=== PATIENT | male | born 1955 | race Caucasian/White ===

== ENCOUNTER 2019-09-21 06:44 | Outpatient (CLI) | payer BC, MEDICARE, SELFPAY ==
--- NOTE | ~2019-09-21 | CT_ITS ---
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 The dose-length product (DLP) was 681.00 mGy-cm. The mA was adjusted according to patient size. Iterative reconstruction technique was employed. FINDINGS: There is asymmetric thickening of the left tragus and pretragus soft tissues There is no in tracranial hemorrhage, acute infarction, or abnormal mass lesion. The ventricles are normal. There is no abnormal mass effect or midline shift. The langley-white matter differentiation is normal. The basal cisterns are patent. The orbits are normal. The paranasal sinuses, mastoids and calvarium are normal . No abnormal enhancement is identified. IMPRESSION: 1. No acute intracranial abnormality. 2. No enhancing intracranial mass. 3. Asymmetric thickening of the left tragus and pretragus soft tissues which may reflect the known ma ss and/or biopsy change. Reviewed, dictated and finalized at location B. IMPRESSION: 1. No acute intracranial abnormality. 2. No enhancing intracranial mass. 3. Asymmetric thickening of the left tragus and pretragus soft tissues which ma y reflect the known mass and/or biopsy change.
--- NOTE | ~2019-09-21 | CT_ITS ---
EXAMINATION: CT soft tissue neck w con DATE: 09/21/2019 07:33 INDICATION: Left ear squamous cell carcinoma. TECHNIQUE: Computed tomography (CT) of the neck was performed with 100 mL Omnipaque-350 intravenous c ontrast. Automated exposure control and iterative reconstruction technique were employed. The dose-le ngth product was 450.85 mGy-cm. COMPARISON: Head CT 09/21/2019 FINDINGS: There is soft tissue attenuation in the left preauricular fat, consistent with surgical hung nge. There are no pathologically enlarged lymph nodes. There is mild plaque in proximal right interna l carotid artery with 0% stenosis relative to normal distal artery lumen diameter. There is moderate cervical spondylosis. IMPRESSION: 1. Soft tissue attenuation in the left preauricular fat, consistent with surgical change. No evidence of metastatic disease. Reviewed, dictated and finalized at location A. IMPRESSION: 1. Soft tissue attenuation in the left preauricular fat, consistent with surgic al change. No evidence of metastatic disease.
[2019-09-21 07:18] LABS: Estimated Glomerular Filt Rate > 60
== END 2019-09-21 06:45 | disposition home or self-care (01) ==
PROVIDERS: PCP Internal Medicine; Visit Provider Radiology Radiation Oncology
DX: C44.229 Squamous cell carcinoma of skin of left ear and external auricular canal (principal); C44.329 Squamous cell carcinoma of skin of other parts of face; M79.89 Other specified soft tissue disorders
CPT/HCPCS: 36415; 70460; 70491; Q9967

== ENCOUNTER 2019-12-27 06:56 | Outpatient (CLI) | payer BC, MEDICARE, SELFPAY ==
[2019-12-27 07:44] LABS: Basophils Percent Auto 0.3 % (0.2-1.2); Eosinophils Absolute Auto 0.1 K/mm3 (0-0.3); Eosinophils Percent Auto 1.1 % (0-4.4); Hematocrit 41.9 % (42.0-52.0); Hemoglobin 14.1 g/dL (14.0-18.0); Immature Granulocyte Percent A 1.6 % (0-0.5); Lymphocytes Absolute Auto 1.41 K/mm3 (0.9-3.2); Lymphocytes Percent Auto 22.3 % (18.3-44.2); Mean Corpuscular HGB Conc 33.7 g/dl (32-36); Mean Corpuscular Hemoglobin 30.6 pg (26-34); Mean Corpuscular Volume 90.9 fl (80-100); Mean Platelet Volume 9.4 fl (7.4-10.4); Monocytes Absolute Auto 0.6 K/mm3 (0.1-0.6); Neutrophils Absolute Auto 4.2 K/mm3 (1.3-6.7); Neutrophils Percent Auto 65.7 % (45.5-73.1); Platelet Count Result 169 k/mm3 (150-375); Red Blood Count 4.61 M/mm3 (4.6-6.20); Red Cell Distribution Width 13.3 % (11.5-14.5); White Blood Count 6.3 K/mm3 (4.5-10.0)
[2019-12-27 07:54] LABS: Alanine Aminotransferase 21 U/L (4-50); Albumin Level 3.7 g/dL (3.5-5.1); Alkaline Phosphatase 48 U/L (38-126); Anion Gap 5 mmol/L (8-16); Aspartate Amino Transferase 24 U/L (17-59); Bilirubin,Total 1.5 mg/dL (0.2-1.3); Blood Urea Nitrogen 17 mg/dL (9-20); Calcium 8.8 mg/dL (8.4-10.2); Carbon Dioxide 31 mmol/L (22-30); Chloride 103 mmol/L (98-107); Cholesterol 141 mg/dL (0-200); Estimated Glomerular Filt Rate > 60; Glucose 111 mg/dL (75-110); HDL Direct 35 mg/dL; Potassium 4.5 mmol/L (3.4-5.0); Sodium 139 mmol/L (137-145); Triglycerides 143 mg/dL (<150)
[2019-12-27 08:06] LABS: LDL Cholesterol Direct 72 mg/dL
[2019-12-27 08:24] LABS: Prostate Specific Antigen 0.5 ng/mL (< OR = 4.0)
[2019-12-27 08:58] LABS: Folic Acid 8.6 ng/mL (2.76->20)
== END 2019-12-27 06:57 | disposition home or self-care (01) ==
PROVIDERS: PCP Internal Medicine; Visit Provider Internal Medicine
DX: E78.5 Hyperlipidemia, unspecified (principal); R53.83 Other fatigue; I10 Essential (primary) hypertension; Z12.5 Encounter for screening for malignant neoplasm of prostate
CPT/HCPCS: 36415; 80053; 80061; 82607; 82746; 83735; 84153; 84443; 85025; G0103

== ENCOUNTER 2021-01-01 13:06 | Outpatient (CLI) | payer MEDICARE, BC, SELFPAY ==
[2021-01-01 13:32] LABS: Hemoglobin A1C 5.3 % (<5.7)
== END 2021-01-01 13:07 | disposition home or self-care (01) ==
PROVIDERS: PCP Internal Medicine; Visit Provider Internal Medicine
DX: R73.9 Hyperglycemia, unspecified (principal)
CPT/HCPCS: 36415; 83036

== ENCOUNTER 2021-02-06 07:52 | Outpatient (CLI) | payer MEDICARE, BC, SELFPAY ==
[2021-02-06 08:23] LABS: Basophils Percent Auto 0.4 % (0.2-1.2); Eosinophils Absolute Auto 0.1 K/mm3 (0-0.3); Hematocrit 43.6 % (42.0-52.0); Hemoglobin 14.7 g/dL (14.0-18.0); Immature Granulocyte Absolute 0.03 K/mm3 (0.00-0.031); Immature Granulocyte Percent A 0.4 % (0-0.5); Lymphocytes Absolute Auto 2.06 K/mm3 (0.9-3.2); Lymphocytes Percent Auto 29.6 % (18.3-44.2); Mean Corpuscular HGB Conc 33.7 g/dl (32-36); Mean Corpuscular Hemoglobin 31.7 pg (26-34); Mean Corpuscular Volume 94.2 fl (80-100); Monocytes Absolute Auto 0.6 K/mm3 (0.1-0.6); Monocytes Percent Auto 8.9 % (2.6-8.5); Neutrophils Absolute Auto 4.2 K/mm3 (1.3-6.7); Neutrophils Percent Auto 59.7 % (45.5-73.1); Platelet Count Result 187 k/mm3 (150-375); Red Blood Count 4.63 M/mm3 (4.6-6.20); Red Cell Distribution Width 13.9 % (11.5-14.5)
[2021-02-06 08:39] LABS: Alanine Aminotransferase 25 U/L (4-50); Albumin Level 4.3 g/dL (3.5-5.1); Alkaline Phosphatase 50 U/L (38-126); Anion Gap 8 mmol/L (8-16); Aspartate Amino Transferase 28 U/L (17-59); Bilirubin,Total 1.5 mg/dL (0.2-1.3); Blood Urea Nitrogen 22 mg/dL (9-20); Calcium 9.6 mg/dL (8.4-10.2); Carbon Dioxide 32 mmol/L (22-30); Chloride 100 mmol/L (98-107); Cholesterol 189 mg/dL (0-200); Estimated Glomerular Filt Rate > 60; Glucose 107 mg/dL (65-110); HDL Direct 43 mg/dL; Potassium 4.3 mmol/L (3.4-5.0); Sodium 140 mmol/L (137-145); Triglycerides 182 mg/dL (<150)
[2021-02-06 08:50] LABS: LDL Cholesterol Direct 93 mg/dL
[2021-02-06 12:26] LABS: Prostate Specific Antigen 0.6 ng/mL (< OR = 4.0)
[2021-02-09 11:27] LABS: Folic Acid 10.5 ng/mL (2.76->20)
== END 2021-02-06 07:53 | disposition home or self-care (01) ==
PROVIDERS: PCP Internal Medicine; Visit Provider Internal Medicine
DX: Z12.5 Encounter for screening for malignant neoplasm of prostate (principal); E78.5 Hyperlipidemia, unspecified; R53.83 Other fatigue; R73.9 Hyperglycemia, unspecified
CPT/HCPCS: 36415; 80053; 80061; 82607; 82746; 84153; 84443; 85025; G0103

== ENCOUNTER 2021-02-07 08:12 | Outpatient (CLI) | payer MEDICARE, BC, SELFPAY ==
--- NOTE | ~2021-02-07 | XR_ITS ---
EXAMINATION: XR chest 2V DATE: 02/07/2021 08:38 INDICATION: History of hypertension TECHNIQUE: PA and lateral views of the chest are obtained. COMPARISON: 02/26/2015 FINDINGS: There is mild atelectasis of the lung bases. There is no pleural effusion or pneumothorax. The cardiomediastinal silhouette is normal. The visualized bones and soft tissues are unremarkable. IMPRESSION: 1. Mild atelectasis of the lung bases. Reviewed, dictated and finalized at location A. NESS INSPECTOR
== END 2021-02-07 08:13 | disposition home or self-care (01) ==
PROVIDERS: PCP Internal Medicine; Visit Provider Internal Medicine
DX: Z01.811 Encounter for preprocedural respiratory examination (principal); R91.8 Other nonspecific abnormal finding of lung field
CPT/HCPCS: 71046

== ENCOUNTER 2021-09-23 14:34 | Outpatient (CLI) | payer MEDICARE, OTHER, SELFPAY ==
--- NOTE | ~2021-09-23 | XR_ITS ---
EXAMINATION: XR chest 2V 09/23/2021 15:02 INDICATION: Cough and congestion PROCEDURE: 2 view chest COMPARISON: 02/07/2021 FINDINGS: There is lingular atelectasis. No focal pneumonia, edema. The cardiomediastinal silhouette is within normal limits. There are no pleural effusions. There is no pneumothorax suspected. There is moderate gastric distention, nonspecific. IMPRESSION: 1: Lingular atelectasis. Otherwise, no acute cardiopulmonary disease.. Reviewed, dictated and finalized at location A.
== END 2021-09-23 14:35 | disposition home or self-care (01) ==
LOC: ANHIMG 14:53
PROVIDERS: PCP Internal Medicine; Visit Provider Physician Assistant
DX: R05.9 Cough, unspecified (principal); R91.8 Other nonspecific abnormal finding of lung field
CPT/HCPCS: 71046

== ENCOUNTER 2021-11-11 07:27 | Outpatient (CLI) | payer MEDICARE, OTHER, SELFPAY ==
[2021-11-11 08:21] LABS: Basophils Percent Auto 0.5 % (0.2-1.2); Eosinophils Absolute Auto 0.1 K/mm3 (0-0.3); Eosinophils Percent Auto 1.5 % (0-4.4); Hematocrit 44.2 % (42.0-52.0); Hemoglobin 14.6 g/dL (14.0-18.0); Immature Granulocyte Absolute 0.03 K/mm3 (0.00-0.031); Immature Granulocyte Percent A 0.5 % (0-0.5); Lymphocytes Absolute Auto 1.85 K/mm3 (0.9-3.2); Lymphocytes Percent Auto 33.7 % (18.3-44.2); Mean Corpuscular Hemoglobin 30.4 pg (26-34); Mean Corpuscular Volume 91.9 fl (80-100); Mean Platelet Volume 9.5 fl (7.4-10.4); Monocytes Absolute Auto 0.5 K/mm3 (0.1-0.6); Monocytes Percent Auto 8.4 % (2.6-8.5); Neutrophils Percent Auto 55.4 % (45.5-73.1); Platelet Count Result 176 k/mm3 (150-375); Red Blood Count 4.81 M/mm3 (4.6-6.20); Red Cell Distribution Width 14.3 % (11.5-14.5); White Blood Count 5.5 K/mm3 (4.5-10.0)
[2021-11-11 08:25] LABS: Alanine Aminotransferase 23 U/L (6-50); Albumin Level 4.2 g/dL (3.5-5.1); Alkaline Phosphatase 51 U/L (38-126); Anion Gap 9 mmol/L (8-16); Aspartate Amino Transferase 24 U/L (17-59); Bilirubin,Total 1.4 mg/dL (0.2-1.3); Blood Urea Nitrogen 19 mg/dL (9-20); Calcium 8.8 mg/dL (8.4-10.2); Carbon Dioxide 27 mmol/L (22-30); Chloride 104 mmol/L (98-107); Cholesterol 151 mg/dL (0-200); Estimated Glomerular Filt Rate > 60; Glucose 121 mg/dL (65-110); HDL Direct 33 mg/dL; Potassium 4.1 mmol/L (3.4-5.0); Sodium 140 mmol/L (137-145); Triglycerides 146 mg/dL (<150)
[2021-11-11 08:36] LABS: LDL Cholesterol Direct 80 mg/dL
[2021-11-11 09:31] LABS: Folic Acid 7.3 ng/mL (2.76->20); Hemoglobin A1C 5.4 % (<5.7)
== END 2021-11-11 07:28 | disposition home or self-care (01) ==
LOC: ANHLAB 07:29
PROVIDERS: PCP Internal Medicine; Visit Provider Internal Medicine
DX: E78.5 Hyperlipidemia, unspecified (principal); R73.9 Hyperglycemia, unspecified; R53.83 Other fatigue
CPT/HCPCS: 36415; 80053; 80061; 82607; 82746; 83036; 84443; 85025

== ENCOUNTER 2021-12-02 01:40 | Day surgery (SDC) | payer MEDICARE, OTHER, SELFPAY ==
[2021-11-21 09:27] VITALS: BMI 29.7
[2021-12-02 06:50] VITALS: BP 128/74; PULSE 65; RESP 16; TEMP 36.1; O2SAT 98; BMI 28.8
[2021-12-02] MEDS: LACTATED RINGERS 1,000 ML 150 ML IV CONT (07:04)
--- NOTE | 2021-12-02 07:35 | P.HP_ITS ---
History of Present Illness History of Present Illness Consent: Risks, benefits, and alternatives have been discussed and questions answered. Patient agrees to proceed with procedure. Chief complaint: family hx colon polyps Narrative: Margarito Wei is a 65 year old male Presents for screening colonoscopy. Patient's family history is significant his mother had colon polyps. Patient has had a previous colonoscopy 5 years ago that was unremarkable. Patient's current weight appetite bowel movements are normal. He denies abdominal pain. He has had no bleeding. Family history is significant mother had colon polyps. There are no other family member see is aware of who have had colon polyps. Review of Systems Review of Systems: Review of systems noncontributory. ON LICENSE OF [facility] Past Medical History Medical History Ganglion cyst of dorsum of right wrist History of Mohs micrographic surgery for skin cancer Surgical History Surgical History History of back surgery Family History Family History Mother Family history of heart disease in male family member before age 55 Patient's mother is Father Patient's father is Acute myocardial infarction Social History Social History Smoking status: Never smoker Second hand tobacco smoke exposure: No Alcohol intake: current Alcohol use details: once a week Substance use: never Substance use type: does not use Living arrangements: with family Spiritual care concerns: No Meds Home Medications and Allergies Home Medications Medication Instructions Recorded Confirmed Type flecainide 50 mg tablet 50 mg PO Q12H 04/05/19 12/02/21 History metoprolol tartrate 50 mg tablet 50 mg PO DAILY 04/05/19 12/02/21 History rivaroxaban 20 mg tablet (Xarelto) 20 mg PO DAILY 04/05/19 12/02/21 History rosuvastatin 20 mg tablet 20 mg PO DAILY 04/05/19 12/02/21 History olmesartan 20 1 tablet PO DAILY #90 tabs 07/27/21 12/02/21 Rx mg-hydrochlorothiazide 12.5 mg tablet Allergies Allergy/AdvReac Type Severity Reaction Status Date / Time clarithromycin Allergy Intermediate rash/hives Verified 12/02/21 06:49 Vital Signs Vital Signs - 24 hr 12/02/21 06:50 Temperature 97 F L Pulse Rate 65 Respiratory Rate 16 Blood Pressure 128/74 Pulse Oximetry 98 Oxygen Delivery Room Air Exam Narrative: Physical exam reveals patient to be alert. Vital signs stable. HEENT exam is unremarkable. Patient is anicteric. Lungs are clear to auscultation and percussion. Heart is without murmur or extra sounds. Abdomen bowel sounds are present soft nontender with no organomegaly. Digital external rectal exam is normal. Assessment and Plan Assessment and plan (1) Family history of colonic polyps: Code(s): Z83.71 - Family history of colonic polyps Status: Acute Assessment and Plan: Patient's mother had colon polyps. Plan is for surveillance colonoscopy at intervals. Further recommendations will be given after endoscopy.
--- NOTE | 2021-12-02 08:01 | WPDANESEPPF ---
Anes - Initial Pre Proc Eval Procedure: Operation Date: 12/02/21 08:00 Proposed Procedures p Screening Colonoscopy - Sadiq Owens MD Date/Time: 12/02/21 08:01 Surgeon: Sadiq Owens MD Pre Op Diagnosis: family hx colon polyps Patient Data Age: 65 Gender: M Height: 1.8 m Weight: 93.8 kg Last Vital Signs Temp 97 F L 12/02/21 06:50 Pulse 65 12/02/21 06:50 Resp 16 12/02/21 06:50 BP 128/74 12/02/21 06:50 Pulse Ox 98 12/02/21 06:50 O2 Del Method Room Air 12/02/21 06:50 Allergies Allergy/AdvReac Type Severity Reaction Status Date / Time clarithromycin Allergy Intermediate rash/hives Verified 12/02/21 06:49 Home Medications Medication Instructions Recorded Confirmed Type flecainide 50 mg tablet 50 mg PO Q12H 04/05/19 12/02/21 History metoprolol tartrate 50 mg tablet 50 mg PO DAILY 04/05/19 12/02/21 History rivaroxaban 20 mg tablet (Xarelto) 20 mg PO DAILY 04/05/19 12/02/21 History rosuvastatin 20 mg tablet 20 mg PO DAILY 04/05/19 12/02/21 History olmesartan 20 1 tablet PO DAILY #90 tabs 07/27/21 12/02/21 Rx mg-hydrochlorothiazide 12.5 mg tablet Patient hx anesthesia problems: none Family hx anesthesia problems: none Results Review: All pre-operative results and documents have been reviewed as part of the pre-operative evaluation. [facility] Past Medical History Medical History Ganglion cyst of dorsum of right wrist History of Mohs micrographic surgery for skin cancer Surgical History Surgical History History of back surgery Family History Family History Mother Family history of heart disease in male family member before age 55 Patient's mother is Father Patient's father is Acute myocardial infarction Social History Social History Smoking status: Never smoker Second hand tobacco smoke exposure: No Alcohol intake: current Alcohol use details: once a week Substance use: never Substance use type: does not use Living arrangements: with family Spiritual care concerns: No Anes - Eval Final PreProcedure Day of Procedure 12/02/21 08:01 Patient weight: normal Heart: regular rate and rhythm Lungs: clear to auscultation Airway: Mallampati scale class II Neurological: alert and oriented Last oral intake: >/= 8 hours ASA classification: III Emergent: no Anesthetic plan: proceed Anesthesia type and monitoring: general GIVS and standard monitoring Results Review: All pre-operative results and documents have been reviewed as part of the pre-operative evaluation. Informed Consent: The patient's anesthetic plan and its attendant risks and benefits were discussed with the patient/family/POA. Questions were solicited and answers provided to the satisfaction of the patient/family/POA.
[2021-12-02 08:28] VITALS: BP 144/78; PULSE 59; RESP 15; O2SAT 99
--- NOTE | 2021-12-02 08:28 | SUR.OPER ---
DR CONTRERAS AWARE TRANSVERSE COLON POLYP NOT RETRIEVED
[2021-12-02 08:38] VITALS: BP 138/77; PULSE 58; RESP 15; O2SAT 97
[2021-12-02 08:48] VITALS: BP 138/77; PULSE 23; RESP 20; O2SAT 98
== END 2021-12-02 09:01 | disposition home or self-care (01) ==
PROVIDERS: PCP Internal Medicine; Visit Provider Internal Medicine Gastroenterology
PROC: 0DJD8ZZ Inspection of Lower Intestinal Tract, Via Natural or Artificial Opening Endoscopic (ICD-10-PCS; CPT 45378; principal; 2021-12-02 08:00)
DX: Z12.11 Encounter for screening for malignant neoplasm of colon (principal); K63.5 Polyp of colon; Z83.71 Family history of colonic polyps; K57.30 Diverticulosis of large intestine without perforation or abscess without bleeding; K64.8 Other hemorrhoids; Z79.01 Long term (current) use of anticoagulants
CPT/HCPCS: 45385; J2704; J7120

== ENCOUNTER 2022-02-10 12:07 | Outpatient (CLI) | payer MEDICARE, OTHER, SELFPAY ==
--- NOTE | ~2022-02-10 | CT_ITS ---
Noncontrast CT scan of the lumbar spine CLINICAL HISTORY: Back pain radiating to right leg, history spinal fusion TECHNIQUE: Axial noncontrast imaging of the lumbar spine was performed. Sagittal and coronal reformat latoya images were constructed. Dose reduction technique was used on this scan by utilizing automated ex posure control and iterative reconstruction technique. FINDINGS: No acute fracture or subluxation identified. Posterior fusion from L4 to L5 present, bilate ral rods and transpedicular screws present. There is associated disc fusion device at the L4-L5 disc space and L4 laminectomy. Remaining disc spaces are preserved. At L1-L2 and L2-L3, there is no disc bulge or herniation. There is mild facet arthropathy at L2-L3. N o spinal canal stenosis or neural foraminal narrowing at these levels. At L3-L4, there is minimal disc bulge and mild facet joint arthropathy. Probable mild central canal s tenosis. Bilateral neural foramina are preserved. At L4-L5, spinal canal is partially obscured by streak artifact. Probable mild left neural foraminal narrowing. At L5-S1, there is no disc bulge or herniation. No spinal canal stenosis or neural foraminal narrowin g. Paravertebral soft tissues are unremarkable aside from expected postoperative changes. Right adrenal nodule present, stable since prior exam dated 09/01/2016. IMPRESSION: Posterior fusion from L4 to L5, as detailed above. Probable mild multifactorial central canal stenosis at L3-L4. Probable left neural foraminal narrowing at L4-L5. Reviewed, dictated and finalized at [facility]. R DOWN
== END 2022-02-10 12:08 | disposition home or self-care (01) ==
LOC: ANHIMG 12:09
PROVIDERS: PCP Internal Medicine; Visit Provider Internal Medicine
DX: M79.604 Pain in right leg (principal); M54.50 Low back pain, unspecified; Z98.1 Arthrodesis status
CPT/HCPCS: 72131

== ENCOUNTER 2022-04-21 14:45 | Outpatient (CLI) | payer MEDICARE, SELFPAY ==
--- NOTE | ~2022-04-21 | XR_ITS ---
XR ankle RT min 3V 04/21/2022 15:10 INDICATION: Right ankle pain PROCEDURE: 4 views right ankle COMPARISON: No prior studies for comparison. FINDINGS: Fracture, dislocation or subluxation is not identified. The soft tissues appear within norm al limits. No foreign bodies are identified. IMPRESSION: 1: NO ACUTE BONE OR JOINT ABNORMALITY IDENTIFIED. Reviewed, dictated and finalized at location B. [facility]
== END 2022-04-21 14:46 | disposition home or self-care (01) ==
PROVIDERS: PCP Internal Medicine; Visit Provider Physician Assistant
DX: M25.571 Pain in right ankle and joints of right foot (principal)
CPT/HCPCS: 73610

== ENCOUNTER 2022-09-01 09:13 | Outpatient (CLI) | payer MEDICARE, SELFPAY ==
[2022-09-01 10:09] LABS: Basophils Percent Auto 0.5 % (0.2-1.2); Eosinophils Absolute Auto 0.1 K/mm3 (0-0.3); Eosinophils Percent Auto 1.3 % (0-4.4); Hematocrit 46.5 % (42.0-52.0); Hemoglobin 15.5 g/dL (14.0-18.0); Immature Granulocyte Absolute 0.05 K/mm3 (0.00-0.031); Immature Granulocyte Percent A 0.8 % (0-0.5); Lymphocytes Absolute Auto 1.59 K/mm3 (0.9-3.2); Lymphocytes Percent Auto 26.6 % (18.3-44.2); Mean Corpuscular HGB Conc 33.3 g/dl (32-36); Mean Corpuscular Hemoglobin 31.4 pg (26-34); Mean Corpuscular Volume 94.1 fl (80-100); Mean Platelet Volume 9.6 fl (7.4-10.4); Monocytes Absolute Auto 0.4 K/mm3 (0.1-0.6); Monocytes Percent Auto 6.7 % (2.6-8.5); Neutrophils Absolute Auto 3.8 K/mm3 (1.3-6.7); Neutrophils Percent Auto 64.1 % (45.5-73.1); Platelet Count Result 211 k/mm3 (150-375); Red Blood Count 4.94 M/mm3 (4.6-6.20); Red Cell Distribution Width 15.1 % (11.5-14.5)
[2022-09-01 10:19] LABS: Alanine Aminotransferase 30 U/L (6-50); Albumin Level 4.4 g/dL (3.5-5.1); Alkaline Phosphatase 48 U/L (38-126); Anion Gap 5 mmol/L (8-16); Aspartate Amino Transferase 34 U/L (17-59); Bilirubin,Total 1.9 mg/dL (0.2-1.3); Blood Urea Nitrogen 17 mg/dL (9-20); Calcium 8.9 mg/dL (8.4-10.2); Carbon Dioxide 31 mmol/L (22-30); Chloride 101 mmol/L (98-107); Cholesterol 237 mg/dL (0-200); Estimated Glomerular Filt Rate > 60; Glucose 102 mg/dL (65-110); HDL Direct 35 mg/dL; Sodium 137 mmol/L (137-145); Triglycerides 252 mg/dL (<150)
[2022-09-01 10:37] LABS: LDL Cholesterol Direct 119 mg/dL
[2022-09-01 10:38] LABS: Hemoglobin A1C 5.3 % (<5.7)
[2022-09-01 10:57] LABS: Prostate Specific Antigen 0.8 ng/mL (< OR = 4.0)
[2022-09-01 11:33] LABS: Folic Acid 9.5 ng/mL (2.76->20)
[2022-09-05 14:40] LABS: Testosterone Free 96.5 pg/mL (35.0-155.0); Testosterone Total 431 ng/dL (250-1100)
== END 2022-09-01 09:14 | disposition home or self-care (01) ==
PROVIDERS: PCP Internal Medicine; Visit Provider Internal Medicine
DX: R79.89 Other specified abnormal findings of blood chemistry (principal); Z12.5 Encounter for screening for malignant neoplasm of prostate; R53.83 Other fatigue; E78.5 Hyperlipidemia, unspecified; I10 Essential (primary) hypertension
CPT/HCPCS: 36415; 80053; 80061; 82607; 82746; 83036; 84153; 84402; 84403; 84443; 85025; G0103

== ENCOUNTER 2022-11-14 07:35 | Outpatient (CLI) | payer MEDICARE, SELFPAY ==
--- NOTE | ~2022-11-14 | US_ITS ---
EXAMINATION: US abdomen limited DATE: 11/14/2022 08:22 INDICATION: Right upper quadrant pain TECHNIQUE: Multiple grayscale and Doppler ultrasound images of the abdomen were obtained. COMPARISON: 08/16/2018 FINDINGS: Bowel gas obscures visualization of the pancreas. The visualized portions of the pancreas a re unremarkable. The liver is normal with normal echogenicity and echotexture. No surface nodularity. Normal hepatopetal flow in the main portal vein. The gallbladder is normal with no abnormal wall thi ckening, pericholecystic fluid or stones. The normal common bile duct measures 4 mm. There was no son ographic Thurman sign. IMPRESSION: 1. Normal sonographic study of the gallbladder. Reviewed, dictated and finalized at location B.
== END 2022-11-14 07:36 | disposition home or self-care (01) ==
PROVIDERS: PCP Internal Medicine; Visit Provider Internal Medicine
DX: R10.11 Right upper quadrant pain (principal)
CPT/HCPCS: 76705

== ENCOUNTER 2023-03-04 08:36 | Outpatient (CLI) | payer MEDICARE, SELFPAY ==
[2023-03-04 09:34] LABS: Anion Gap 7 mmol/L (8-16); Blood Urea Nitrogen 16 mg/dL (9-20); Carbon Dioxide 32 mmol/L (22-30); Chloride 100 mmol/L (98-107); Estimated Glomerular Filt Rate > 60; Glucose 99 mg/dL (65-110); Potassium 4.1 mmol/L (3.4-5.0); Sodium 139 mmol/L (137-145)
[2023-03-04 09:38] LABS: Basophils Percent Auto 0.5 % (0.2-1.2); Eosinophils Absolute Auto 0.1 K/mm3 (0-0.3); Eosinophils Percent Auto 0.9 % (0-4.4); Hematocrit 44.5 % (42.0-52.0); Hemoglobin 14.7 g/dL (14.0-18.0); Immature Granulocyte Absolute 0.06 K/mm3 (0.00-0.031); Immature Granulocyte Percent A 0.8 % (0-0.5); Lymphocytes Absolute Auto 1.63 K/mm3 (0.9-3.2); Lymphocytes Percent Auto 21.9 % (18.3-44.2); Mean Corpuscular Hemoglobin 30.6 pg (26-34); Mean Corpuscular Volume 92.7 fl (80-100); Mean Platelet Volume 9.4 fl (7.4-10.4); Monocytes Absolute Auto 0.5 K/mm3 (0.1-0.6); Neutrophils Absolute Auto 5.1 K/mm3 (1.3-6.7); Neutrophils Percent Auto 68.9 % (45.5-73.1); Platelet Count Result 219 k/mm3 (150-375); Red Cell Distribution Width 14.6 % (11.5-14.5); White Blood Count 7.4 K/mm3 (4.5-10.0)
== END 2023-03-04 08:37 | disposition home or self-care (01) ==
PROVIDERS: PCP Internal Medicine; Visit Provider Surgery
DX: K64.8 Other hemorrhoids (principal)
CPT/HCPCS: 36415; 80048; 85025

== ENCOUNTER 2023-03-05 01:35 | Day surgery (SDC) | payer MEDICARE, SELFPAY ==
[2023-03-03 12:01] VITALS: BMI 31.4
--- NOTE | 2023-03-03 12:02 | PC.NURSE ---
Report to the Outpatient Waiting Room, entrance under the green pavilion located off [facility], at time _1000_ on date _[id number]_. Planned Procedure Time: _1200_. Time changes happen often and if your time is changed the preop area will call you the afternoon before. - You and your visitor will be asked to self-screen and do not enter if you have any COVID symptoms. - A mask is optional within the hospital at this time. Patients may have clear liquids (water, carbonated beverages, clear teas, apple juice) until 3 hours prior to surgery with a maximum of 20 ounces. - No food from midnight until time of surgery Take the following medications with a SIP of water the morning of surgery: ___Flecainide and Metoprolol DO NOT STOP ANY OF YOUR OTHER PRESCRIPTION MEDICATIONS PRIOR TO SURGERY ?EXCEPT THE FOLLOWING Medications to discontinue per physician __Patient stopped Xarelto on 8-5-2650 Date to take last dose Patient says told by Dr Rey to just take metamucil, that bowel cleanout was not necessary. Please no make-up, nail czech, hairspray, perfume, deodorant, or body powder the day of surgery. No jewelry (including any body piercings) or valuables the day of surgery, leave them at home. Please take a shower or bath the night before, or the morning of, surgery with an antibacterial soap. Wear comfortable, loose fitting clothing. - Jewelry must be removed prior to entering the operating room. Rings and piercings that are not removed may be cut off. - The hospital will not accept responsibility for valuables. - Please leave all valuables, including medications, at home the day of surgery. If you are going home after surgery, a licensed racecar driver must drive you home. - NO public transportation without another adult if you receive anesthesia. - We recommend that an adult stay with you for 24 hours following discharge. - We also recommend that you do not drive, make important decision, drink alcoholic beverages, or take any drugs that were not prescribed by your health care provider for at least 24 hours after your discharge time. Follow any additional instructions given to you from your surgeon. If you or anyone in your household have experienced Covid symptoms in the past week, please notify your surgeon or the nurse liaison at the phone number below for possible testing. Telephone instructions given to _Miteshe___and asked if any additional questions and then verbalized understanding. Patient advised to call surgeon office or pre surgery nurse liaison [phone] if any additional questions.
--- NOTE | 2023-03-04 14:29 | PM.SD2 ---
Same Day Admit/Disch: HPI History of Present Illness Chief complaint: prolapsing internal hemorrhoids Narrative: Margarito Wei is a 67 year old male who reports he has had hemorrhoids for 20 years. They prolapse and are uncomfortable. In recent weeks, they have been doing this more often and he has passed some bloody mucus. He was seen in the office and found to have prolapsing internal hemorrhoids. He is taken to surgery at this time for rubber-band ligation internal hemorrhoids. He does take Xarelto for chronic atrial fibrillation. This has been held for surgery. [facility] Past Medical History Medical History Ganglion cyst of dorsum of right wrist Heart disease History of Mohs micrographic surgery for skin cancer Hypertension Surgical History Surgical History History of back surgery Family History Family History Mother Family history of heart disease in male family member before age 55 Patient's mother is Father Patient's father is Acute myocardial infarction Social History Social History Smoking status: Never smoker Second hand tobacco smoke exposure: No Alcohol intake: current Drinks per week: 1 Alcohol use details: once a week Substance use: never Substance use type: does not use Lack of Transportation: No Lack of Food: Never True Current Housing: I Have Housing Concerned About Future Housing: No Difficulty Paying Gas/Electric Bills: No Difficulty Paying for Meds: No Currently Unemployed: No Education: Bachelor's Degree Difficulty w/ Childcare or Family Care: YES Living arrangements: with family Spiritual care concerns: No Same Day Admit/Disch: Med Pre-admit Medications Home Medications Medication Instructions Recorded Confirmed Type flecainide 50 mg tablet 50 mg PO Q12H 04/05/19 03/03/23 History rivaroxaban 20 mg tablet (Xarelto) 20 mg PO DAILY 04/05/19 03/03/23 History rosuvastatin 20 mg tablet 20 mg PO DAILY 04/05/19 03/03/23 History metoprolol tartrate 50 mg tablet 100 mg PO DAILY 08/29/22 03/03/23 History olmesartan 40 1 tablet PO DAILY 10/13/22 03/03/23 History mg-hydrochlorothiazide 25 mg tablet pantoprazole 40 mg tablet,delayed 40 mg PO QAM #90 tabs 03/01/23 03/03/23 Rx release oxycodone-acetaminophen 5 mg-325 0.5 - 1 tablet PO Q6H PRN pain #5 03/05/23 Rx mg tablet tabs Review of Systems Review of Systems All systems reviewed & are unremarkable except as noted in HPI and below (HPI) Exam Const: General: comfortable, no acute distress, alert and awake HENMT: Head: normocephalic and atraumatic Mouth: Yes Normal oral and palatal mucosa present Eyes: Conjunctivae: conjunctivae normal Pupils: Equal, round and reactive pupils present EOM: EOMs intact bilaterally Neck: Neck: normal visual inspection, no lymphadenopathy and nontender Resp: Effort & Inspection: normal respiratory effort Auscultation: clear to auscultation bilaterally Cardio: Rate: regular rate Rhythm: regular rhythm Heart sounds: no gallops, no murmurs and no rubs GI: Inspection: non-distended GI Palp: Yes Soft to palpation, No Tenderness to palpation present (GI), No Hepatomegaly present and No Splenomegaly present Rectal Exam: normal sphincter tone, No heme positive stool and Internal hemorrhoid(s) present (Bulky internal hemorrhoids not prolapsed at time of exam) Skin: Lesions: no lesions Rashes: no rashes Neuro: General: no focal motor deficits and CN's II-XI intact bilaterally Cranial nerves: Yes Equal, round and reactive pupils present, Yes Bilaterally intact EOM present, Yes facial symmetry and Yes Midline tongue present Speech: normal speech Motor exam (neuro): 5/5 motor strength present throughout and Motor a
[2023-03-05] VITALS (7 sets, daily range): BP systolic 134–165; BP diastolic 77–100; PULSE 71–79; RESP 12–20; TEMP 36.2–36.9; O2SAT 94–100
[2023-03-05] MEDS: ACETAMINOPHEN 500 MG TABLET 1000 MG PO (10:14)
[2023-03-05] MEDS: LACTATED RINGERS 1,000 ML 30 ML IV CONT (10:30)
[2023-03-05] MEDS: KETOROLAC 15 MG/ML VIAL (*BKC) IV PUSH (10:38)
--- NOTE | 2023-03-05 11:29 | WPDANESEPPF ---
Anes - Initial Pre Proc Eval Procedure: Operation Date: 03/05/23 12:00 Proposed Procedures p Rubber Band Ligation Internal Hemorrhoids - Carlton Rey MD Date/Time: 03/05/23 11:29 Surgeon: Carlton Rey MD Pre Op Diagnosis: prolapsing internal hemorrhoids Patient Data Age: 67 Gender: M Height: 1.8 m Weight: 102.7 kg Last Vital Signs Temp 98.4 F 03/05/23 10:20 Pulse 73 03/05/23 10:20 Resp 16 03/05/23 10:20 BP 142/85 H 03/05/23 10:20 Pulse Ox 96 03/05/23 10:20 O2 Del Method Room Air 03/05/23 10:20 Allergies Allergy/AdvReac Type Severity Reaction Status Date / Time clarithromycin Allergy Intermediate rash/hives Verified 03/05/23 10:13 Home Medications Medication Instructions Recorded Confirmed Type flecainide 50 mg tablet 50 mg PO Q12H 04/05/19 03/03/23 History rivaroxaban 20 mg tablet (Xarelto) 20 mg PO DAILY 04/05/19 03/03/23 History rosuvastatin 20 mg tablet 20 mg PO DAILY 04/05/19 03/03/23 History metoprolol tartrate 50 mg tablet 100 mg PO DAILY 08/29/22 03/03/23 History olmesartan 40 1 tablet PO DAILY 10/13/22 03/03/23 History mg-hydrochlorothiazide 25 mg tablet pantoprazole 40 mg tablet,delayed 40 mg PO QAM #90 tabs 03/01/23 03/03/23 Rx release Patient hx anesthesia problems: none Family hx anesthesia problems: none Results Review: All pre-operative results and documents have been reviewed as part of the pre-operative evaluation. [facility] Past Medical History Medical History Ganglion cyst of dorsum of right wrist Heart disease History of Mohs micrographic surgery for skin cancer Hypertension Surgical History Surgical History History of back surgery Family History Family History Mother Family history of heart disease in male family member before age 55 Patient's mother is Father Patient's father is Acute myocardial infarction Social History Social History Smoking status: Never smoker Second hand tobacco smoke exposure: No Alcohol intake: current Drinks per week: 1 Alcohol use details: once a week Substance use: never Substance use type: does not use Lack of Transportation: No Lack of Food: Never True Current Housing: I Have Housing Concerned About Future Housing: No Difficulty Paying Gas/Electric Bills: No Difficulty Paying for Meds: No Currently Unemployed: No Education: Bachelor's Degree Difficulty w/ Childcare or Family Care: YES Living arrangements: with family Spiritual care concerns: No Anes - Eval Final PreProcedure Day of Procedure 03/05/23 11:29 Patient weight: normal Heart: regular rate and rhythm Lungs: clear to auscultation Airway: Mallampati scale class II Neurological: alert and oriented Last oral intake: >/= 8 hours ASA classification: III Emergent: no Anesthetic plan: proceed Anesthesia type and monitoring: general LMA and ETT and standard monitoring Results Review: All pre-operative results and documents have been reviewed as part of the pre-operative evaluation. Informed Consent: The patient's anesthetic plan and its attendant risks and benefits were discussed with the patient/family/POA. Questions were solicited and answers provided to the satisfaction of the patient/family/POA.
--- NOTE | 2023-03-05 11:59 | WPDHPUPDATE1 ---
History and Physical Update Update Date/Time: 03/05/23 11:59 History and Physical has been reviewed, including an updated exam of the patient. There are NO changes in the patient's condition. Risks, benefits, and alternatives have been discussed and questions answered. Patient agrees to proceed with procedure.
[2023-03-05] MEDS: ceFAZolin 2 GM/D5W 50 ML 2 GM/50 ML BAG IVPB (12:18)
--- NOTE | 2023-03-05 13:18 | P.OP_ITS ---
Procedure Note - Detailed Date of Procedure 03/05/23 Pre-op Diagnosis prolapsing internal hemorrhoids Post-op Diagnosis Same Procedure Performed Rubber-band ligation internal hemorrhoids Surgeon Carlton Rey MD [employer] [facility] Anesthesia General Indications Patient has chronically prolapsing internal hemorrhoids sometimes with bleeding. They are very uncomfortable for him. He has no external hemorrhoids. He is taken to surgery now for rubber-band ligation internal hemorrhoids. Findings The internal hemorrhoids were located posteriorly. One was just to the right of midline the other just to the left of midline Description of Procedure Patient was taken to surgery and induced into general anesthesia. He was then placed in prone veronica-knife position. The buttocks were taped apart. Prep and drape was carried out. Using the Cheryl anoscope the internal hemorrhoids were noted in the position described above. The humeral head on the patient's right of posterior midline was rubber-band ligated 1st. The hemorrhoid just left of midline was then rubber-band ligate. No other anorectal pathology was noted. The rectal area was dressed with Xeroform gauze, fluffs and Promise panties. Patient was returned to a supine position, awakened and taken to recovery in good condition. Sponge needle counts were correct x2. Estimated Blood Loss 0 Packing No Pathology None sent Complications No immediate complications Condition Stable Disposition PACU [facility] Billing Surgery - Charge Forward: Surgery Billing (Rubber-band ligation of 2 internal hemorrhoids)
== END 2023-03-05 14:35 | disposition home or self-care (01) ==
PROVIDERS: PCP Internal Medicine; Visit Provider Surgery
PROC: (CPT 46221; principal; 2023-03-05 12:00)
DX: K64.8 Other hemorrhoids (principal); I11.9 Hypertensive heart disease without heart failure; I48.20 Chronic atrial fibrillation, unspecified; Z79.01 Long term (current) use of anticoagulants
CPT/HCPCS: 46221; A9270; J0690; J1100; J1885; J2250; J2405; J2704; J3010; J7120

== ENCOUNTER 2023-03-31 10:29 | Outpatient (CLI) | payer MEDICARE, SELFPAY ==
--- NOTE | ~2023-03-31 | XR_ITS ---
EXAMINATION: XR chest 2V DATE: 03/31/2023 10:44 INDICATION: Cough. TECHNIQUE: Frontal and lateral views of the chest were obtained. COMPARISON: Chest 2 views 09/23/2021 FINDINGS: There is mild atelectasis in right lower lobe. There is no pneumonia, pleural effusion, or pneumothorax. The heart size is normal. IMPRESSION: 1. Mild atelectasis in right lower lobe. Reviewed, dictated and finalized at location A. COUNSELOR
== END 2023-03-31 10:30 | disposition home or self-care (01) ==
PROVIDERS: PCP Internal Medicine; Visit Provider Internal Medicine
DX: R05.9 Cough, unspecified (principal); R91.8 Other nonspecific abnormal finding of lung field
CPT/HCPCS: 71046

== ENCOUNTER 2023-04-13 11:32 | Outpatient (CLI) | payer MEDICARE, SELFPAY ==
--- NOTE | ~2023-04-13 | XR_ITS ---
Clinical Indication: Bronchitis PA and lateral views of the chest: Comparison: 03/31/2023 Findings: Linear scarring noted right lung base. The lungs are otherwise clear, without evidence of f ocal consolidation or pleural effusion. Cardiomediastinal silhouette is within normal limits. Bones and soft tissues are unremarkable. Impression: Linear scarring right lung base, otherwise clear lungs. Reviewed, dictated and finalized at location M. EMS AUDITOR Impression: Linear scarring right lung base, otherwise clear lungs.
== END 2023-04-13 11:33 | disposition home or self-care (01) ==
PROVIDERS: PCP Internal Medicine; Visit Provider Internal Medicine
DX: J40 Bronchitis, not specified as acute or chronic (principal)
CPT/HCPCS: 71046

== ENCOUNTER 2023-04-24 12:08 | Emergency (ER) | payer MEDICARE, SELFPAY ==
--- NOTE | 2023-04-24 12:09 | ED.NAVMDI ---
HPI - Nausea/Vomiting/Diarrhea General Chief complaint: Nausea/Vomiting/Diarrhea Stated complaint: Diarrhea/Fever Time Seen by Provider: 04/24/23 12:09 Source: patient Mode of arrival: ambulatory Limitations: no limitations History of Present Illness HPI Narrative: Patient is a 67-year-old male who presents with 4 days of foul-smelling diarrhea, fever and decreased oral intake. The patient reports diarrhea was green today. Patient reports calling PCP and was told to come to Urgent Care for blood work and stool sample. Denies any nausea or vomiting. Has not had any URI symptoms. Related Data Home Medications Medication Instructions Recorded Confirmed flecainide 50 mg tablet 50 mg PO Q12H 04/05/19 04/24/23 rivaroxaban 20 mg tablet (Xarelto) 20 mg PO DAILY 04/05/19 04/24/23 rosuvastatin 20 mg tablet 20 mg PO DAILY 04/05/19 04/24/23 olmesartan 40 1 tablet PO DAILY 10/13/22 04/24/23 mg-hydrochlorothiazide 25 mg tablet Allergies Allergy/AdvReac Type Severity Reaction Status Date / Time clarithromycin Allergy Intermediate rash/hives Verified 03/31/23 09:33 Review of Systems Review of Systems: All systems reviewed & are unremarkable except as noted in HPI and below Constitutional: Constitutional: Denies body ache(s), Denies chills, Denies fatigue, Reports fever(s), Denies headache(s), Denies malaise and Denies weakness Eyes: Eyes: Denies blurry vision, Denies itchy eyes and Denies loss of vision ENT: Denies otalgia, Denies headache(s), Denies nasal congestion, Denies sinus pain and Denies sore throat Cardiovascular: Cardiovascular: Denies chest pain, Denies irregular heart rhythm and Denies dyspnea Respiratory: Respiratory: Denies cough and Denies dyspnea Gastrointestinal: Gastrointestinal: Denies abdominal pain, Reports diarrhea, Denies nausea and Denies vomiting Musculoskeletal: Musculoskeletal: Denies back pain, Denies myalgias and Denies arthralgias Integumentary/Breasts: Skin/Breast: Denies pruritus and Denies rash Neurologic: Denies headache(s), Denies loss of vision and Denies weakness Psychiatric: Psychiatric: Reports no additional psychiatric complaints Endocrine: Endocrine: Denies fatigue Allergic/Immunologic: Allergic/Immunologic: Denies itchy eyes PMFSH Past Medical History Medical History (Updated 04/24/23 @ 13:15 by Marilyn Forrest APRN) Ganglion cyst of dorsum of right wrist Heart disease History of Mohs micrographic surgery for skin cancer Hypertension Surgical History Surgical History (Updated 03/31/23 @ 09:34 by Abby Nieto MA) History of back surgery Hx of hemorrhoidectomy Rubber-band ligation internal hemorrhoids 03/05/23 SAW Family History Family History Mother Family history of heart disease in male family member before age 55 Patient's mother is Father Patient's father is Acute myocardial infarction Social History Social History Smoking status: Never smoker Second hand tobacco smoke exposure: No Alcohol intake: current Drinks per week: 1 Alcohol use details: once a week Substance use: never Substance use type: does not use Lack of Transportation: No Lack of Food: Never True Current Housing: I Have Housing Concerned About Future Housing: No Difficulty Paying Gas/Electric Bills: No Difficulty Paying for Meds: No Currently Unemployed: No Education: Bachelor's Degree Difficulty w/ Childcare or Family Care: YES Living arrangements: with family Spiritual care concerns: No Comments At time of signature, agree with nursing past medical, surgical, social and family history. There is no relevant family history pertinent to the presenting complaint. Exam Const: General: cooperative, healthy appearing, comfortable, no acute distress and well nourished Nutritional Appearance:
[2023-04-24 12:35] VITALS: BP 119/75; PULSE 92; RESP 20; TEMP 36.7; O2SAT 98
== END 2023-04-24 13:15 | disposition short-term general hospital (02) ==
PROVIDERS: Emergency Provider Nurse Practitioner Family; PCP Internal Medicine
DX: R19.7 Diarrhea, unspecified (principal); R50.9 Fever, unspecified; I10 Essential (primary) hypertension; Z85.828 Personal history of other malignant neoplasm of skin; I51.9 Heart disease, unspecified
CPT/HCPCS: 99212; G0463

== ENCOUNTER 2023-04-24 13:31 | Emergency (ER) | payer MEDICARE, SELFPAY ==
[2023-04-24] VITALS (18 sets, daily range): BP systolic 128–148; BP diastolic 74–90; PULSE 80–95; RESP 14–24; TEMP 36.4; O2SAT 95–99
[2023-04-24 15:06] LABS: Basophils Percent Auto 0.2 % (0.2-1.2); Hematocrit 44.9 % (42.0-52.0); Hemoglobin 14.7 g/dL (14.0-18.0); Immature Granulocyte Absolute 0.02 K/mm3 (0.00-0.031); Immature Granulocyte Percent A 0.5 % (0-0.5); Lymphocytes Absolute Auto 1.11 K/mm3 (0.9-3.2); Lymphocytes Percent Auto 27.4 % (18.3-44.2); Mean Corpuscular HGB Conc 32.7 g/dl (32-36); Mean Corpuscular Hemoglobin 30.4 pg (26-34); Mean Corpuscular Volume 92.8 fl (80-100); Mean Platelet Volume 9.1 fl (7.4-10.4); Monocytes Absolute Auto 0.5 K/mm3 (0.1-0.6); Monocytes Percent Auto 13.1 % (2.6-8.5); Neutrophils Absolute Auto 2.3 K/mm3 (1.3-6.7); Neutrophils Percent Auto 57.8 % (45.5-73.1); Platelet Count Result 133 k/mm3 (150-375); Red Blood Count 4.84 M/mm3 (4.6-6.20); Red Cell Distribution Width 15.6 % (11.5-14.5); White Blood Count 4.1 K/mm3 (4.5-10.0)
[2023-04-24 15:15] LABS: INR 1.1; Partial Thromboplastin Time 33.2 SECONDS (22.3-36.8); Prothrombin Time 14.6 Seconds (11.1-14.7)
[2023-04-24 15:18] LABS: Alanine Aminotransferase 29 U/L (6-50); Albumin Level 4.1 g/dL (3.5-5.1); Alkaline Phosphatase 64 U/L (38-126); Anion Gap 8 mmol/L (8-16); Aspartate Amino Transferase 38 U/L (17-59); Bilirubin,Total 1.8 mg/dL (0.2-1.3); Blood Urea Nitrogen 15 mg/dL (9-20); Calcium 8.7 mg/dL (8.4-10.2); Carbon Dioxide 25 mmol/L (22-30); Chloride 104 mmol/L (98-107); Estimated CRCL calculation 69 ml/min; Estimated Glomerular Filt Rate > 60; Glucose 99 mg/dL (65-110); Lipase 58 U/L (23-300); Potassium 3.7 mmol/L (3.4-5.0); Sodium 137 mmol/L (137-145)
[2023-04-24] MEDS: SODIUM CHLORIDE 0.9% IV 1,000 ML 999 ML IV CONT (15:55)
[2023-04-24 17:18] LABS: Toxigenic C. Diff POSITIVE (NEGATIVE)
--- NOTE | 2023-04-24 17:21 | ED.GENADULT ---
HPI - General Adult General Chief complaint: Abdominal Pain Stated complaint: diarrhea,fever Time Seen by Provider: 04/24/23 14:50 History of Present Illness HPI narrative: patient is a 67-year-old male who presents ER with diarrhea and fever. Ongoing for 5 days. Has approximately 6 stools a day. They recently turned green. No vomiting. He was recently on an oral antibiotic for a lung infection. No history of C diff. Patient also reports he recently had a hospital procedure for hemorrhoids. He initially presented to an urgent care or sent here for further evaluation. Patient feels he may be dehydrated as well. No dizziness or syncope. Related Data Home Medications Medication Instructions Recorded Confirmed flecainide 50 mg tablet 50 mg PO Q12H 04/05/19 04/24/23 rivaroxaban 20 mg tablet (Xarelto) 20 mg PO DAILY 04/05/19 04/24/23 rosuvastatin 20 mg tablet 20 mg PO DAILY 04/05/19 04/24/23 olmesartan 40 1 tablet PO DAILY 10/13/22 04/24/23 mg-hydrochlorothiazide 25 mg tablet Allergies Allergy/AdvReac Type Severity Reaction Status Date / Time clarithromycin Allergy Intermediate rash/hives Verified 04/24/23 15:16 Review of Systems Review of Systems: All systems reviewed & are unremarkable except as noted in HPI and below Constitutional: Constitutional: Denies chills, Reports fatigue and Reports fever(s) ENT: Reports system reviewed and no additional complaints, except as documented Cardiovascular: Cardiovascular: Reports no additional cardiovascular complaints Respiratory: Respiratory: Reports no additional respiratory complaints Gastrointestinal: Gastrointestinal: Denies abdominal pain, Reports diarrhea, Denies nausea and Denies vomiting Musculoskeletal: Musculoskeletal: Reports no additional musculoskeletal complaints [facility] Past Medical History Medical History (Updated 04/24/23 @ 17:24 by Flavio Hill MD) Ganglion cyst of dorsum of right wrist Heart disease History of Mohs micrographic surgery for skin cancer Hypertension Surgical History Surgical History (Updated 03/31/23 @ 09:34 by Abby Nieto MA) History of back surgery Hx of hemorrhoidectomy Rubber-band ligation internal hemorrhoids 03/05/23 SAW Family History Family History Mother Family history of heart disease in male family member before age 55 Patient's mother is Father Patient's father is Acute myocardial infarction Social History Social History Smoking status: Never smoker Second hand tobacco smoke exposure: No Alcohol intake: current Drinks per week: 1 Alcohol use details: once a week Substance use: never Substance use type: does not use Lack of Transportation: No Lack of Food: Never True Current Housing: I Have Housing Concerned About Future Housing: No Difficulty Paying Gas/Electric Bills: No Difficulty Paying for Meds: No Currently Unemployed: No Education: Bachelor's Degree Difficulty w/ Childcare or Family Care: YES Living arrangements: with family Spiritual care concerns: No Exam Narrative: GENERAL: Well-appearing, well-nourished, and in no acute distress. HEAD: Normocephalic, atraumatic. ENT: Mucous membranes moist. NECK: Supple. CHEST: Clear to auscultation. No respiratory distress. HEART: Regular rate and rhythm. Normal peripheral pulses. ABDOMEN: Soft, nontender, nondistended. EXTREMITIES: Normal range of motion. No edema. SKIN: Warm, dry, no rash. NEURO: Alert and oriented x3. PSYCH: Normal mood and affect. Course Course Emergency Course: Discussed case with Dr. Sepulveda. We will start on oral vancomycin and we will have patient follow-up in clinic. He is nontoxic appearing with a nontender abdomen with reassuring lab work. Patient verbalized understanding of the treatment plan and diagnosi
[2023-04-24] MEDS: VANCOMYCIN HCL 125 MG ORAL CAPSULE PO (18:11)
== END 2023-04-24 18:31 | disposition home or self-care (01) ==
PROVIDERS: Emergency Provider Emergency Medicine; PCP Internal Medicine
DX: A04.72 Enterocolitis due to Clostridium difficile, not specified as recurrent (principal); I11.9 Hypertensive heart disease without heart failure; Z85.828 Personal history of other malignant neoplasm of skin; Z79.01 Long term (current) use of anticoagulants
CPT/HCPCS: 36415; 80053; 83690; 85025; 85610; 85730; 87493; 96360; 99283; A9270; J7030

== ENCOUNTER 2023-08-23 10:30 | Emergency (ER) | payer MEDICARE, SELFPAY ==
--- NOTE | 2023-08-23 10:33 | ED.EXTPRO ---
HPI - Extremity Problem General Chief complaint: Extremity Problem,Nontraumatic Stated complaint: left hand,wrist swelling Time Seen by Provider: 08/23/23 10:32 Source: patient Mode of arrival: ambulatory Limitations: no limitations History of Present Illness HPI Narrative: Margarito is a 67-year-old male patient presenting to clinic today with complaints of left hand/wrist swelling/itching. He reports he was stung by a wasp on and has developed swelling and itching and the left hand and wrist. The sting was to the dorsal left wrist. Does have some yellowish discharge coming from the area that he was stung. Was concerned initially that the stinger may have been still in the skin however he could not visualize this. Related Data Home Medications Medication Instructions Recorded Confirmed rivaroxaban 20 mg tablet (Xarelto) 20 mg PO DAILY 04/05/19 08/23/23 rosuvastatin 20 mg tablet 20 mg PO DAILY 04/05/19 04/24/23 olmesartan 40 1 tablet PO DAILY 10/13/22 04/24/23 mg-hydrochlorothiazide 25 mg tablet metoprolol succinate 100 mg mg PO 08/23/23 tablet,extended release 24 hr Allergies Allergy/AdvReac Type Severity Reaction Status Date / Time clarithromycin Allergy Intermediate rash/hives Verified 08/23/23 10:36 Review of Systems Review of Systems: Pertinent positives per HPI. Patient denies any fever, chills, rash, headache, visual changes, dizziness, cough, runny nose, sore throat, shortness of breath, chest pain, palpitations, nausea, vomiting, diarrhea, constipation, abdominal pain, or any urinary issues. [facility] Past Medical History Medical History Ganglion cyst of dorsum of right wrist Heart disease History of Mohs micrographic surgery for skin cancer Hypertension Surgical History Surgical History History of back surgery Hx of hemorrhoidectomy Rubber-band ligation internal hemorrhoids 03/05/23 SAW Family History Family History Mother Family history of heart disease in male family member before age 55 Patient's mother is Father Patient's father is Acute myocardial infarction Social History Social History Smoking status: Never smoker Second hand tobacco smoke exposure: No Alcohol intake: current Drinks per week: 1 Alcohol use details: once a week Substance use: never Substance use type: does not use Lack of Transportation: No Lack of Food: Never True Current Housing: I Have Housing Concerned About Future Housing: No Difficulty Paying Gas/Electric Bills: No Difficulty Paying for Meds: No Currently Unemployed: No Education: Bachelor's Degree Difficulty w/ Childcare or Family Care: YES Living arrangements: with family Spiritual care concerns: No Comments At the time of my signature, I reviewed and agree with the nursing past medical, surgical, social, and family history. There is no relevant family history pertinent to the patient complaint. Exam Narrative: General: Well-developed, well nourished, in no apparent distress Head: Normocephalic, atraumatic. Cardio: Regular rate and rhythm, s1 and s2 normal, no murmur appreciated. Resp: Clear to auscultation bilaterally, no rhonchi, rales, wheezing or rubs. Integumentary: Berkley, warm, and dry, redness and swelling noted to the left wrist, mid forearm, and hand-1+ pitting edema, insect sting to the dorsal left wrist with yellowish discharge. Area is itchy, no palpable abscess or induration. Course Course Emergency Course: Portions of this record may have been created with voice recognition software. Level of Care: Express Care Visit Vital Signs Vital signs: Vital signs reviewed MDM - Extremity (Nontraumatic) MDM Narrative
[2023-08-23 10:41] VITALS: BP 124/55; PULSE 93; RESP 16; TEMP 37.2; O2SAT 98
[2023-08-23 10:44] VITALS: BP 124/55; PULSE 93; RESP 16; TEMP 37.2; O2SAT 98
== END 2023-08-23 10:49 | disposition home or self-care (01) ==
PROVIDERS: Emergency Provider Nurse Practitioner Family; PCP Internal Medicine
DX: T63.461A Toxic effect of venom of wasps, accidental (unintentional), initial encounter (principal); I10 Essential (primary) hypertension; Z85.828 Personal history of other malignant neoplasm of skin; Z79.01 Long term (current) use of anticoagulants
CPT/HCPCS: 99213; G0463

== ENCOUNTER 2023-09-09 13:51 | Outpatient (CLI) | payer MEDICARE, SELFPAY ==
--- NOTE | ~2023-09-09 | XR_ITS ---
XR foot RT min 3V Ordering provider: Mayito Sepulveda DO History: . M79.671 - Pain in right foot 80 LB DOG LANDED ON RT FOOT . Comparison: None. FINDINGS: BONES: No acute fracture or dislocation. 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 No tarsal coalition. SOFT TISSUES: Normal. IMPRESSION: No acute osseous abnormality of the right foot. Reviewed, dictated and finalized at location A.
== END 2023-09-09 13:52 | disposition home or self-care (01) ==
LOC: ANHIMG 13:52
PROVIDERS: PCP Internal Medicine; Visit Provider Internal Medicine
DX: M79.671 Pain in right foot (principal)
CPT/HCPCS: 73630

== ENCOUNTER 2023-09-09 20:20 | Emergency (ER) | payer MEDICARE, SELFPAY ==
[2023-09-09 20:25] VITALS: BP 136/77; PULSE 85; RESP 15; TEMP 36.3; O2SAT 100
--- NOTE | 2023-09-09 21:25 | ED.LOWEXIN ---
HPI - Extremity Injury (Lower) General Chief Complaint: Extremity Injury, Lower Stated Complaint: foot pain Time Seen by Provider: 09/09/23 21:11 History of Present Illness HPI Narrative: 67-year-old male with history of chronic anticoagulation on Eliquis for presumed AFib, hypertension, hyperlipidemia presents to the emergency department for right foot pain for 1 day. Patient states yesterday his 80 lb dog stepped on his right foot. States the do not hurt much after the incident but later in the day he began having worsening pain. He contacted his PCP's office today and was sent for an outpatient x-ray. He did not get results and states his pain continue to worsen so he came to the ED for further evaluation. He reports pain and swelling and redness to the dorsum of his right foot. He has been taking Tylenol at home without improvement. Denies fever, nausea or vomiting, history of gout. Related Data Home Medications Medication Instructions Recorded Confirmed rivaroxaban 20 mg tablet (Xarelto) 20 mg PO DAILY 04/05/19 08/23/23 rosuvastatin 20 mg tablet 20 mg PO DAILY 04/05/19 04/24/23 olmesartan 40 1 tablet PO DAILY 10/13/22 04/24/23 mg-hydrochlorothiazide 25 mg tablet metoprolol succinate 100 mg mg PO 08/23/23 tablet,extended release 24 hr Allergies Allergy/AdvReac Type Severity Reaction Status Date / Time clarithromycin Allergy Intermediate rash/hives Verified 09/09/23 20:24 Review of Systems Review of Systems: All systems reviewed & are unremarkable except as noted in HPI and below PMFSH Past Medical History Medical History Ganglion cyst of dorsum of right wrist Heart disease History of Mohs micrographic surgery for skin cancer Hypertension Surgical History Surgical History History of back surgery Hx of hemorrhoidectomy Rubber-band ligation internal hemorrhoids 03/05/23 SAW Family History Family History Mother Family history of heart disease in male family member before age 55 Patient's mother is Father Patient's father is Acute myocardial infarction Social History Social History Smoking status: Never smoker Second hand tobacco smoke exposure: No Alcohol intake: current Drinks per week: 1 Alcohol use details: once a week Substance use: never Substance use type: does not use Lack of Transportation: No Lack of Food: Never True Current Housing: I Have Housing Concerned About Future Housing: No Difficulty Paying Gas/Electric Bills: No Difficulty Paying for Meds: No Currently Unemployed: No Education: Bachelor's Degree Difficulty w/ Childcare or Family Care: YES Living arrangements: with family Spiritual care concerns: No Exam Narrative: GENERAL: Well-appearing, well-nourished, and in no acute distress. HEAD: Normocephalic, atraumatic. NECK: Supple. CHEST: Clear to auscultation. No respiratory distress. HEART: Regular rate and rhythm. No murmur heard. Normal peripheral pulses. EXTREMITIES: RLE: Erythema, warmth , tenderness and swelling over the 1st MTP. Full passive range of motion, active range of motion limited secondary to pain. Cap refill less than 2. Sensation intact. DP pulse 2 +. SKIN: Warm, dry, no rash. NEURO: No focal deficits. Alert and oriented x3 Course Vital Signs Vital signs: Vital Signs Temperature 97.4 F L 09/09/23 20:25 Pulse Rate 85 09/09/23 20:25 Respiratory Rate 15 09/09/23 20:25 Blood Pressure 136/77 09/09/23 20:25 Pulse Oximetry 100 09/09/23 20:25 Oxygen Delivery Room Air 09/09/23 20:25 Temperature 97.4 F L 09/09/23 20:25 Pulse Rate 72 09/09/23 21:32 Respiratory Rate 16 09/09/23 21:32 Blood Pressure 152/92 H 07
[2023-09-09] MEDS: HYDROcodone/acetaminophen (*CRX) 5-325 MG TABLET 1 TAB PO (21:31)
[2023-09-09 21:32] VITALS: BP 152/92; PULSE 72; RESP 16; O2SAT 99
[2023-09-09 21:59] LABS: Basophils Percent Auto 0.4 % (0.2-1.2); Eosinophils Absolute Auto 0.1 K/mm3 (0-0.3); Eosinophils Percent Auto 0.5 % (0-4.4); Hematocrit 43.4 % (42.0-52.0); Hemoglobin 14.2 g/dL (14.0-18.0); Immature Granulocyte Absolute 0.04 K/mm3 (0.00-0.031); Immature Granulocyte Percent A 0.4 % (0-0.5); Lymphocytes Absolute Auto 1.48 K/mm3 (0.9-3.2); Lymphocytes Percent Auto 15.5 % (18.3-44.2); Mean Corpuscular HGB Conc 32.7 g/dl (32-36); Mean Corpuscular Hemoglobin 30.5 pg (26-34); Mean Corpuscular Volume 93.1 fl (80-100); Mean Platelet Volume 9.2 fl (7.4-10.4); Monocytes Absolute Auto 0.7 K/mm3 (0.1-0.6); Monocytes Percent Auto 7.2 % (2.6-8.5); Neutrophils Absolute Auto 7.2 K/mm3 (1.3-6.7); Platelet Count Result 161 k/mm3 (150-375); Red Blood Count 4.66 M/mm3 (4.6-6.20); Red Cell Distribution Width 14.9 % (11.5-14.5); White Blood Count 9.5 K/mm3 (4.5-10.0)
[2023-09-09 22:14] LABS: Anion Gap 7 mmol/L (4-12); Blood Urea Nitrogen 23 mg/dL (9-20); CRP 1.3 mg/dL (<1.0); Calcium 8.9 mg/dL (8.4-10.2); Carbon Dioxide 35 mmol/L (22-30); Chloride 95 mmol/L (98-107); Estimated CRCL calculation 63 ml/min; Estimated Glomerular Filt Rate 60; Glucose 134 mg/dL (65-110); Potassium 4.2 mmol/L (3.4-5.0); Sodium 137 mmol/L (137-145)
[2023-09-09 22:22] LABS: Erythrocyte Sedimentation Rate 18 mm/hr (0-20)
[2023-09-09] MEDS: CEPHALEXIN 500 MG CAPSULE PO (22:32)
[2023-09-09] MEDS: predniSONE 20 MG TABLET 40 MG PO (22:32)
== END 2023-09-09 22:45 | disposition home or self-care (01) ==
PROVIDERS: Emergency Provider Physician Assistant; PCP Internal Medicine
DX: S99.921A Unspecified injury of right foot, initial encounter (principal); M10.9 Gout, unspecified; I11.9 Hypertensive heart disease without heart failure; E78.5 Hyperlipidemia, unspecified; Z85.828 Personal history of other malignant neoplasm of skin; Z79.01 Long term (current) use of anticoagulants; Z79.52 Long term (current) use of systemic steroids; Z79.899 Other long term (current) drug therapy; W54.1XXA Struck by dog, initial encounter
CPT/HCPCS: 36415; 73630; 80048; 84550; 85025; 85652; 86140; 99283; A9270; J7512

== ENCOUNTER 2023-09-16 08:40 | Emergency (ER) | payer MEDICARE, SELFPAY ==
--- NOTE | 2023-09-16 08:45 | ED.NAVMDI ---
HPI - Nausea/Vomiting/Diarrhea General Chief complaint: Nausea/Vomiting/Diarrhea Stated complaint: CDIFF Time Seen by Provider: 09/16/23 08:44 Source: patient Mode of arrival: ambulatory Limitations: no limitations History of Present Illness HPI Narrative: Margarito is a 67-year-old male patient presenting to the clinic today with complaints of diarrhea since Thursday. He reports he was seen in the emergency room on September 08 for great toe pain and was diagnosed with gout and was given prescription for prednisone and Keflex. States he was given the antibiotic just in case there was a infection in his toe. He was dx with c-diff in April of this year and he believes it is back. He is now having very watery stools, abdominal pain across the abdomen, feeling feverish with chills. Denies any blood in his stool however he states his stool is straight water and smells like it did when he had C diff. Related Data Home Medications Medication Instructions Recorded Confirmed rivaroxaban 20 mg tablet (Xarelto) 20 mg PO DAILY 04/05/19 09/16/23 rosuvastatin 20 mg tablet 20 mg PO DAILY 04/05/19 09/16/23 olmesartan 40 1 tablet PO DAILY 10/13/22 09/16/23 mg-hydrochlorothiazide 25 mg tablet metoprolol succinate 100 mg 500 mg PO QID 08/23/23 09/16/23 tablet,extended release 24 hr cephalexin 500 mg capsule 500 mg PO QID 09/16/23 09/16/23 Allergies Allergy/AdvReac Type Severity Reaction Status Date / Time clarithromycin Allergy Intermediate rash/hives Verified 09/16/23 08:53 Review of Systems Review of Systems: Pertinent positives per HPI. Patient denies any fever, chills, rash, headache, visual changes, dizziness, cough, runny nose, sore throat, shortness of breath, chest pain, palpitations, nausea, vomiting, constipation,or any urinary issues. REPLACED BY [facility] Past Medical History Medical History Ganglion cyst of dorsum of right wrist Heart disease History of Mohs micrographic surgery for skin cancer Hypertension Surgical History Surgical History History of back surgery Hx of hemorrhoidectomy Rubber-band ligation internal hemorrhoids 1/11/24 SAW Family History Family History Mother Family history of heart disease in male family member before age 55 Patient's mother is Father Patient's father is Acute myocardial infarction Social History Social History Smoking status: Never smoker Second hand tobacco smoke exposure: No Alcohol intake: current Drinks per week: 1 Alcohol use details: once a week Substance use: never Substance use type: does not use Lack of Transportation: No Lack of Food: Never True Current Housing: I Have Housing Concerned About Future Housing: No Difficulty Paying Gas/Electric Bills: No Difficulty Paying for Meds: No Currently Unemployed: No Education: Bachelor's Degree Difficulty w/ Childcare or Family Care: YES Living arrangements: with family Spiritual care concerns: No Comments At the time of my signature, I reviewed and agree with the nursing past medical, surgical, social, and family history. There is no relevant family history pertinent to the patient complaint. Exam Narrative: General: Well-developed, well nourished, in no apparent distress. Head: Normocephalic, atraumatic. Cardio: Regular rate and rhythm, s1 and s2 normal, no murmur appreciated. Resp: Clear to auscultation bilaterally, no rhonchi, rales, wheezing or rubs. Abdomen: Soft, pliable, bowel sounds present in all quadrants, mild generalized tender to palpation, no organomegly, no CVAT tenderness. Course Course Emergency Course: Portions of this record may have been created with voice recognition software. Level of C
[2023-09-16 08:51] VITALS: BP 136/73; PULSE 54; RESP 18; TEMP 36.6; O2SAT 100
== END 2023-09-16 09:05 | disposition short-term general hospital (02) ==
PROVIDERS: Emergency Provider Nurse Practitioner Family; PCP Internal Medicine
DX: R19.7 Diarrhea, unspecified (principal); Z86.19 Personal history of other infectious and parasitic diseases; I10 Essential (primary) hypertension; Z79.01 Long term (current) use of anticoagulants
CPT/HCPCS: 99212; G0463

== ENCOUNTER 2023-09-16 09:16 | Emergency (ER) | payer MEDICARE, SELFPAY ==
--- NOTE | ~2023-09-16 | XR_ITS ---
XR abdomen/kub 1V Ordering provider: Cleopatra Hopkins PA-C History: . abd pain, diarrhea, hx c diff . Comparison: None. FINDINGS: BOWEL: Nonobstructive bowel gas pattern. ORGANOMEGALY: None. SIGNIFICANT PATHOLOGIC CALCIFICATIONS: None. OTHER: Postoperative changes in the spine. No free air is seen under the diaphragm. IMPRESSION: NO ACUTE ABDOMINAL FINDINGS. Reviewed, dictated and finalized at location A.
[2023-09-16 09:38] VITALS: BP 131/83; PULSE 58; RESP 16; TEMP 37.1; O2SAT 97
[2023-09-16 10:00] VITALS: BP 144/83; PULSE 55; RESP 18; O2SAT 97
[2023-09-16 10:07] LABS: Basophils Absolute Auto 0.1 K/mm3 (0.0-0.1); Basophils Percent Auto 0.9 % (0.2-1.2); Eosinophils Absolute Auto 0.1 K/mm3 (0-0.3); Hemoglobin 14.8 g/dL (14.0-18.0); Immature Granulocyte Absolute 0.15 K/mm3 (0.00-0.031); Immature Granulocyte Percent A 1.9 % (0-0.5); Lymphocytes Absolute Auto 2.01 K/mm3 (0.9-3.2); Lymphocytes Percent Auto 25.5 % (18.3-44.2); Mean Corpuscular HGB Conc 32.9 g/dl (32-36); Mean Corpuscular Volume 94.1 fl (80-100); Mean Platelet Volume 9.1 fl (7.4-10.4); Monocytes Absolute Auto 0.9 K/mm3 (0.1-0.6); Monocytes Percent Auto 11.4 % (2.6-8.5); Neutrophils Absolute Auto 4.7 K/mm3 (1.3-6.7); Neutrophils Percent Auto 59.3 % (45.5-73.1); Platelet Count Result 210 k/mm3 (150-375); Red Blood Count 4.78 M/mm3 (4.6-6.20); Red Cell Distribution Width 15.4 % (11.5-14.5); White Blood Count 7.9 K/mm3 (4.5-10.0)
[2023-09-16 10:23] LABS: Alanine Aminotransferase 24 U/L (6-50); Albumin Level 4.4 g/dL (3.5-5.1); Alkaline Phosphatase 56 U/L (38-126); Anion Gap 9 mmol/L (4-12); Aspartate Amino Transferase 23 U/L (17-59); Bilirubin,Total 1.9 mg/dL (0.2-1.3); Blood Urea Nitrogen 26 mg/dL (9-20); Calcium 8.8 mg/dL (8.4-10.2); Carbon Dioxide 29 mmol/L (22-30); Chloride 99 mmol/L (98-107); Estimated CRCL calculation 75 ml/min; Estimated Glomerular Filt Rate > 60; Glucose 94 mg/dL (65-110); Potassium 4.5 mmol/L (3.4-5.0); Sodium 137 mmol/L (137-145)
--- NOTE | 2023-09-16 10:35 | ED.NAVMDI ---
HPI - Nausea/Vomiting/Diarrhea General Chief complaint: Nausea/Vomiting/Diarrhea Stated complaint: diarrhea Time Seen by Provider: 09/16/23 09:35 Source: patient Mode of arrival: ambulatory Limitations: no limitations History of Present Illness HPI Narrative: This is a 67-year-old male that presents to the emergency department for possible C diff infection. Reports he was recently prescribed Keflex for cellulitis versus gout flare. On Thursday he started to develop watery diarrhea. Reports it is similar to when he had C diff several months ago. This would be his 2nd time having C diff. Reports mild, crampy abdominal pain. Reports feeling a little dehydrated. Denies fevers or vomiting. Related Data Home Medications Medication Instructions Recorded Confirmed rivaroxaban 20 mg tablet (Xarelto) 20 mg PO DAILY 04/05/19 09/16/23 rosuvastatin 20 mg tablet 20 mg PO DAILY 04/05/19 09/16/23 olmesartan 40 1 tablet PO DAILY 10/13/22 09/16/23 mg-hydrochlorothiazide 25 mg tablet metoprolol succinate 100 mg 500 mg PO QID 08/23/23 09/16/23 tablet,extended release 24 hr cephalexin 500 mg capsule 500 mg PO QID 09/16/23 09/16/23 Allergies Allergy/AdvReac Type Severity Reaction Status Date / Time clarithromycin Allergy Intermediate rash/hives Verified 09/16/23 08:53 Review of Systems Review of Systems: CONSTITUTIONAL: Denies fever GASTROINTESTINAL: Reports abdominal pain, and diarrhea. All systems reviewed & are unremarkable except as noted in HPI and below PMFSH Past Medical History Medical History Ganglion cyst of dorsum of right wrist Heart disease History of Mohs micrographic surgery for skin cancer Hypertension Surgical History Surgical History History of back surgery Hx of hemorrhoidectomy Rubber-band ligation internal hemorrhoids 03/05/23 SAW Family History Family History Mother Family history of heart disease in male family member before age 55 Patient's mother is Father Patient's father is Acute myocardial infarction Social History Social History (Reviewed 09/16/23 @ 08:47 by DENZEL Swartz Smoking status: Never smoker Second hand tobacco smoke exposure: No Alcohol intake: current Drinks per week: 1 Alcohol use details: once a week Substance use: never Substance use type: does not use Lack of Transportation: No Lack of Food: Never True Current Housing: I Have Housing Concerned About Future Housing: No Difficulty Paying Gas/Electric Bills: No Difficulty Paying for Meds: No Currently Unemployed: No Education: Bachelor's Degree Difficulty w/ Childcare or Family Care: YES Living arrangements: with family Spiritual care concerns: No Exam Narrative: GENERAL: Well-appearing, well-nourished, and in no acute distress. HEAD: Normocephalic, atraumatic. EYES: EOMI. CHEST: Clear to auscultation. No respiratory distress. No wheezes rales or rhonchi HEART: Regular rate and rhythm. No murmur heard. Normal peripheral pulses. ABDOMEN: Soft, nontender, nondistended, normal active bowel sounds. EXTREMITIES: Normal range of motion. No edema. SKIN: Warm, dry, no rash. NEURO: No focal deficits. Alert and oriented x3. PSYCH: Normal mood and affect Course Course Emergency Course: Patient updated on his workup and agrees with plan of care Vital Signs Vital signs: Vital Signs Temperature 98.7 F 09/16/23 09:38 Pulse Rate 58 L 09/16/23 09:38 Respiratory Rate 16 09/16/23 09:38 Blood Pressure 131/83 09/16/23 09:38 Pulse Oximetry 97 09/16/23 09:38 Oxygen Delivery Room Air 09/16/23 09:38 Temperature 98.7 F 09/16/23 09:38 Pulse Rate 58 L 09/16/23 09:38 Respiratory Rate 16 09/16/23 09:38 Blood Pressure 131/83
[2023-09-16] MEDS: SODIUM CHLORIDE 0.9% IV 1,000 ML 999 ML IV CONT (10:38)
[2023-09-16 11:00] VITALS: BP 162/90; PULSE 65; RESP 15; O2SAT 99
[2023-09-16 11:49] LABS: Toxigenic C. Diff POSITIVE (NEGATIVE)
[2023-09-16 12:16] VITALS: BP 167/93; PULSE 65; RESP 16; TEMP 36.9; O2SAT 100
[2023-09-16 12:17] VITALS: BP 167/93; PULSE 65; RESP 18; O2SAT 99
== END 2023-09-16 12:18 | disposition home or self-care (01) ==
PROVIDERS: Emergency Provider Physician Assistant; PCP Internal Medicine
DX: A04.72 Enterocolitis due to Clostridium difficile, not specified as recurrent (principal); I11.9 Hypertensive heart disease without heart failure; Z85.828 Personal history of other malignant neoplasm of skin; Z79.01 Long term (current) use of anticoagulants; Z79.899 Other long term (current) drug therapy
CPT/HCPCS: 36415; 74018; 80053; 85025; 87045; 87427; 87449; 87493; 96360; 99283; J7030

== ENCOUNTER 2023-10-18 11:19 | Emergency (ER) | payer MEDICARE, SELFPAY | END 2023-10-18 12:55 | disposition home or self-care (01) | PROVIDERS: Emergency Provider Nurse Practitioner; PCP Internal Medicine | DX: M10.9 Gout, unspecified (principal); I10 Essential (primary) hypertension | CPT/HCPCS: 99213; G0463 ==

== ENCOUNTER 2023-10-24 08:47 | Emergency (ER) | payer MEDICARE, SELFPAY ==
[2023-10-24 08:59] VITALS: BP 134/87; PULSE 69; RESP 18; TEMP 37.1; O2SAT 98
--- NOTE | 2023-10-24 08:59 | ED.LOWEXIN ---
HPI - Extremity Injury (Lower) General Chief Complaint: Extremity Problem,Nontraumatic Stated Complaint: Left Foot Big Toe Pain Time Seen by Provider: 10/24/23 08:59 Source: patient, RN notes reviewed and old records reviewed Mode of arrival: ambulatory Limitations: no limitations History of Present Illness HPI Narrative: Patient presents with complaints of left foot pain and swelling. Patient was diagnosed and treated for gout earlier this month. He completed treatment, is following a low purine diet, drinking plenty of water. He reports symptoms began again a couple of days ago. Only time he had relief was when he was taking prednisone. He denies any recent injury or trauma. Voices no other concerns or complaints at this time. No fever, chills, sweats Related Data Home Medications Medication Instructions Recorded Confirmed rivaroxaban 20 mg tablet (Xarelto) 20 mg PO DAILY 04/05/19 10/18/23 rosuvastatin 20 mg tablet 20 mg PO DAILY 04/05/19 10/18/23 olmesartan 40 1 tablet PO DAILY 10/13/22 10/18/23 mg-hydrochlorothiazide 25 mg tablet metoprolol succinate 100 mg 500 mg PO QID 08/23/23 10/18/23 tablet,extended release 24 hr sildenafil 100 mg tablet 100 mg PO PRN PRN Erectile 10/18/23 10/18/23 Dysfunction Allergies Allergy/AdvReac Type Severity Reaction Status Date / Time clarithromycin Allergy Intermediate rash/hives Verified 10/24/23 08:56 Review of Systems Review of Systems: All systems reviewed & are unremarkable except as noted in HPI and below Constitutional: Constitutional: Reports no additional constitutional complaints ENT: Reports system reviewed and no additional complaints, except as documented Cardiovascular: Cardiovascular: Reports no additional cardiovascular complaints Respiratory: Respiratory: Reports no additional respiratory complaints Gastrointestinal: Gastrointestinal: Reports no additional gastrointestinal complaints Musculoskeletal: Musculoskeletal: Reports no additional musculoskeletal complaints and Reports as per HPI PMFSH Past Medical History Medical History Ganglion cyst of dorsum of right wrist Heart disease History of Mohs micrographic surgery for skin cancer Hypertension Surgical History Surgical History History of back surgery Hx of hemorrhoidectomy Rubber-band ligation internal hemorrhoids 03/05/23 SAW Family History Family History Mother Family history of heart disease in male family member before age 55 Patient's mother is Father Patient's father is Acute myocardial infarction Social History Social History Smoking status: Never smoker Second hand tobacco smoke exposure: No Alcohol intake: current Drinks per week: 1 Alcohol use details: once a week Substance use: never Substance use type: does not use Lack of Transportation: No Lack of Food: Never True Current Housing: I Have Housing Concerned About Future Housing: No Difficulty Paying Gas/Electric Bills: No Difficulty Paying for Meds: No Currently Unemployed: No Education: Bachelor's Degree Difficulty w/ Childcare or Family Care: YES Living arrangements: with family Spiritual care concerns: No Comments At the time of my signature, I reviewed and agree with the nursing past medical, surgical, social, and family history. There is no relevant family history pertinent to the patient complaint. Exam Const: General: cooperative, no acute distress, alert and awake Orientation/consciousness: oriented to person, oriented to place and oriented to time HENMT: Head: normal to inspection Resp: Effort & Inspection: normal respiratory effort and able to speak in complete sentences Auscultation: clear to ausculta
== END 2023-10-24 09:35 | disposition home or self-care (01) ==
PROVIDERS: Emergency Provider Nurse Practitioner Family; PCP Internal Medicine
DX: M10.9 Gout, unspecified (principal); I10 Essential (primary) hypertension; Z79.01 Long term (current) use of anticoagulants
CPT/HCPCS: 99213; G0463

== ENCOUNTER 2023-10-31 08:35 | Outpatient (CLI) | payer MEDICARE, SELFPAY ==
[2023-10-31 09:35] LABS: Rheumatoid Factor < 12.0 IU/ML (<12)
[2023-10-31 09:36] LABS: Alanine Aminotransferase 39 U/L (6-50); Albumin Level 4.3 g/dL (3.5-5.1); Alkaline Phosphatase 57 U/L (38-126); Anion Gap 7 mmol/L (4-12); Aspartate Amino Transferase 34 U/L (17-59); Bilirubin,Total 1.6 mg/dL (0.2-1.3); Blood Urea Nitrogen 25 mg/dL (9-20); CRP 0.5 mg/dL (<1.0); Calcium 9.3 mg/dL (8.4-10.2); Carbon Dioxide 33 mmol/L (22-30); Chloride 99 mmol/L (98-107); Cholesterol 166 mg/dL (0-200); Estimated Glomerular Filt Rate 60; Glucose 112 mg/dL (65-110); HDL Direct 38 mg/dL; Potassium 4.9 mmol/L (3.4-5.0); Sodium 139 mmol/L (137-145); Triglycerides 179 mg/dL (<150)
[2023-10-31 09:45] LABS: LDL Cholesterol Direct 73 mg/dL
[2023-10-31 09:52] LABS: Erythrocyte Sedimentation Rate 22 mm/hr (0-20)
[2023-10-31 10:03] LABS: Prostate Specific Antigen 0.8 ng/mL (< OR = 4.0)
== END 2023-10-31 08:36 | disposition home or self-care (01) ==
LOC: ANHLAB 08:42
PROVIDERS: PCP Internal Medicine; Visit Provider Nurse Practitioner
DX: M25.50 Pain in unspecified joint (principal); E78.5 Hyperlipidemia, unspecified; Z12.5 Encounter for screening for malignant neoplasm of prostate
CPT/HCPCS: 36415; 80053; 80061; 84153; 85652; 86038; 86039; 86140; 86430; G0103

== ENCOUNTER 2024-09-01 11:06 | Outpatient (CLI) | payer MEDICARE, SELFPAY ==
--- OUTSIDE RECORDS SUMMARY | 2024-09-01 11:09 | XMS_ITS ---
Author Organization [facility] [address] Address [address] [place] [address] Care Team Providers Care Drink Waiter Name Role Phone Alexander Donald MD Primary Care Provider [phone] Edmond Baez MD Unavailable [phone] Active Problems Problem Noted Date Diagnosed Date [facility] current use of antiarrhythmic drug Assessment & Plan (04/10/2021 2:24 PM BULK CLERK): 12-lead ECG today does not demonstrate any changes that would prohibit continued use of flecainide. We will continue the patient on the same dose and schedule. As long as the patient continues on this medication, an ECG should be performed at least every 6 months to monitor for toxicity. Weakness 08/22/2020 Assessment & Plan (08/22/2020 11:07 AM CDT): Patient describes some subjective weakness and muscle cramping similar to what he has had with previous dosing of statins. He currently on examination exhibits no features suggesting Parkinson's disease at this time. I have suggested he talk to his PCP and possibly obtain a creatinine kinase level. He has not had any muscle pain, but painless weakness has been associated with various statins. He may also wish to again hold the statin to see if his symptoms remit as it has with previous statin cessation. I will see him back in the office from the general neurological standpoint on an as-needed basis. Squamous cell carcinoma of skin of left cheek Cancer Staging:Pathologic stage from 09/19/2019:No Stage Recommended(pT2, cN0, cM0) - Signed by Edmond Baez MD on 06/12/2021 Enthesopathy of hip region 05/18/2019 Knee pain 05/18/2019 Lateral epicondylitis 05/18/2019 Pain in limb 05/18/2019 Ganglion cyst of volar aspect of right wrist 01/2020 Overview (04/06/2019): Added automatically from request for surgery [id number] Finger laceration, initial encounter 10/06/2018 Ventricular ectopy 01/26/2018 Assessment & Plan (01/26/2018 3:35 PM BULK CLERK): The patient also appears to have symptomatic ventricular ectopy, as recorded by his home device. This arrhythmia would also respond to antiarrhythmic drug therapy. We will arrange appropriate follow-up after the results of the patient's echocardiogram. Anticoagulation management encounter 01/26/2018 Assessment & Plan (04/10/2021 2:24 PM BULK CLERK): The patient has a [id number] score of 4 (annualized risk of stroke 4 %). I have therefore recommended continued anticoagulation for thromboprophylaxis. The patient will follow-up with me in 12 months for an office visit and twelve- lead ECG. Assessment & Plan (01/26/2018 3:35 PM BULK CLERK): The patient has a [id number] score of 4 (annualized risk of stroke 4.0 %). I have therefore recommended that he remain anticoagulated for thromboprophylaxis. Paroxysmal atrial fibrillation 04/12/2014 Overview (05/29/2016): PAF (paroxysmal atrial fibrillation) Assessment & Plan (04/07/2022 5:22 PM BULK CLERK): Symptomatic paroxysmal atrial fibrillation, presently managed with flecainide. I will not make any changes at this time. 12-lead ECG today does not demonstrate any changes that would prohibit continued use of flecainide. We will continue the patient on the same dose and schedule. As long as the patient continues on this medication, an ECG should be performed at least every 6 months to monitor for toxicity. The patient has a [id number] score of 4 (annualized risk of stroke 4%). I have therefore recommended continued anticoagulation for thromboprophylaxis. The patient will follow-up with me in 12 months for an office visit and twelve- lead ECG. Assessment & Plan (04/10/2021 2:23 PM BULK CLERK): Paroxysmal atrial fibrillation, symptomatic. He is doing well with antiarrhythmic drug therapy with flecainide. Assessment & Plan (01/26/2018 3:33 PM BULK CLERK): The patient has symptomatic paroxysmal atrial fibrillation. We discussed options for management, including antiarrhythmic drug therapy as well as radiofrequency catheter ablation. The patient is in favor of pharmacologic therapy at this point. We will obtain a resting echocardiogram. In the past, this has been normal. If his LV ejection fraction is normal and there is no evidence of LVH, we may consider initiation of flecainide or sotalol. History of transient cerebral ischemia 5 Overview (05/29/2016): History of TIA (transient ischemic attack) Hypertension 04/12/2014 Overview (05/29/2016): HTN (hypertension) Current Treatment and Therapy Plans No current plan information found. Past Treatment and Therapy Plans No past plan information found. Radiation Treatments * [place] [facility] [place] - 11/14/2019 Treatment Period Energy Fraction Dose Fractions Total Dose Plans [facility] 09/29/2019 - 11/14/2019 200 30 / 6,000 Reference Points Delivered CHE DPV 09/29/2019 - 11/14/2019 6,000
--- OUTSIDE RECORDS SUMMARY | 2024-09-01 11:09 | XMS_ITS | Referral Summary ---
Author Organization [facility] [address] Address [address] [place] [address] Care Team Providers Care General Distillery Worker Name Role Phone Alexander Donald MD Primary Care Provider [phone] Edmond Baez MD Unavailable [phone] Encounters Date Type Department Care Team Description 07/15/2024 9:30 AM CDT Office Visit [facility] [address] [facility] [address] [place] [address] [place] [address] Foot drop, right foot from Last 3 Months Allergies Active Allergy Reactions Criticality Noted Date Comments Atorvastatin Muscle pain Medium 04/21/2019 Muscle cramping and muscles quiver and couldn't walk Clarithromycin Other (See comments) Low 06/12/2023 Reaction: discolored skin, Medications CLINDAMYCIN PHOSPHATE TOPIndications: acne on nose Apply 1 application topically daily as needed Active traMADoL (ULTRAM) 50 mg tablet TAKE 1 TABLET BY MOUTH EVERY 4 TO 6 HOURS FOR 7 DAYS NEEDED [address] (CYMBALTA) 30 mg capsule Take 30 mg by mouth daily [address] (PROTONIX) 40 mg EC tablet Take 1 tablet (40 mg total) by mouth every morning 3 Active sildenafiL (VIAGRA) 100 mg tablet Take 1 tablet (100 mg total) by mouth daily 3 Active pitavastatin calcium (LIVALO) 2 mg tablet Take 1 tablet (2 mg total) by mouth nightly 30 tablet 11 3 Active metoprolol XL (TOPROL-XL) 100 mg 24 hr tablet Take 1 tablet (100 mg total) by mouth daily 90 tablet 3 4 Active rivaroxaban (Xarelto) 20 mg tablet TAKE 1 TABLET(20 MG) BY MOUTH DAILY 90 tablet 1 4 Active diazePAM (VALIUM) 5 mg tabletIndicatio ns:Sedation Take 1 tablet (5 mg total) by mouth once for 1 dose Take 1 tablet by mouth 30 min prior to MRI 1 tablet 4 Active flecainide (TAMBOCOR) 50 mg tablet TAKE 1 TABLET(50 MG) BY MOUTH TWICE DAILY 180 tablet 3 4 Active olmesartan-hydr ochlorothiazide (BENICAR HCT) 40-25 mg per tablet TAKE 1 TABLET BY MOUTH DAILY 90 tablet 4 12/21/19 25 Active Active Problems Problem Noted Date Diagnosed Date [facility] current use of antiarrhythmic drug Assessment & Plan (04/10/2021 2:24 PM OPEN HEARTH MELTER): 12-lead ECG today does not demonstrate any [...] (04/06/2019): Added automatically from request for surgery [id number] Finger laceration, initial encounter 10/06/2018 Ventricular ectopy 01/26/2018 Assessment & Plan (01/26/2018 3:35 PM OPEN HEARTH MELTER): The patient also appears to have symptomatic ventricular ectopy, as recorded by his home device. This arrhythmia would also respond to antiarrhythmic drug therapy. We will arrange appropriate follow-up after the results of the patient's echocardiogram. Anticoagulation management encounter 01/26/2018 Assessment & Plan (04/10/2021 2:24 PM OPEN HEARTH MELTER): The patient has a [id number] score of 4 (annualized risk of stroke 4 %). I have therefore recommended continued anticoagulation for thromboprophylaxis. The patient will follow-up with me in 12 months for an office visit and twelve- lead ECG. Assessment & Plan (01/26/2018 3:35 PM OPEN HEARTH MELTER): The patient has a [id number] score of 4 (annualized risk of stroke 4.0 %). I have therefore recommended that he remain anticoagulated for thromboprophylaxis. Paroxysmal atrial fibrillation 04/12/2014 Overview (05/29/2016): PAF (paroxysmal atrial fibrillation) Assessment & Plan (04/07/2022 5:22 PM OPEN HEARTH MELTER): Symptomatic paroxysmal atrial fibrillation, presently managed with [...] monitor for toxicity. The patient has a [id number] score of 4 (annualized risk of stroke 4%). I have therefore recommended continued anticoagulation for thromboprophylaxis. The patient will follow-up with me in 12 months for an office visit and twelve- lead ECG. Assessment & Plan (04/10/2021 2:23 PM OPEN HEARTH MELTER): Paroxysmal atrial fibrillation, symptomatic. He is doing well with antiarrhythmic drug therapy with flecainide. Assessment & Plan (01/26/2018 3:33 PM OPEN HEARTH MELTER): The patient has symptomatic paroxysmal atrial fibrillation. [...] attack) Hypertension 04/12/2014 Overview (05/29/2016): HTN (hypertension) Immunizations Immunization Administration Dates Next Due Influenza, Quadrivalent, Spl it, Preservative Free, Intramuscular 12/14/2017,12/13/2017 Influenza, Trivalent, High D ose, Split, Preservative Free, Intramuscular 02/28/2019 Influenza, Trivalent, IM (MDV) 12/23/2013,2013 Influenza, Trivalent, Preser vative Free, Intramuscular 11/28/2016,12/18/2015,01/29/2015,03/08 Tdap 09/27/2018 Social History Tobacco Use Types Packs/Day Years Used Date Smoking Tobacco: Never Smokeless Tobacco: Never Tobacco Cessation:Counseling Given: Not Answered Alcohol Use Standard Drinks/Week Comments Yes 0 (1 standard drink = 0.6 oz pur e alcohol) AUDIT-C Answer Date Recorded Q1: How often do you have a drink containing alc ohol? Monthly or less 04/21/2019 Average Number of Drinks Not on file 020 Frequency of Binge Drinking Not on file 03/27 Sex and Gender Information Value Date Recorded Sex Assigned at Not on file Legal Sex Male 3:55 PM [employer] [facility]ARTH MELTER Gender Identity Not on file Sexual Orientation Not on file Last Filed Vital Signs Vital Sign Reading Time Taken Comments Blood Pressure 132/70 02/11/2023 9:07 AM OPEN HEARTH MELTER Pulse 64 02/11/2023 9:07 AM OPEN HEARTH MELTER Temperature 37.4 C (99.3 F) 08/22/2020 10:09 AM CDT Respiratory Rate 18 04/03/2022 12:56 PM [employer] MELTER Oxygen Saturation 94% 02/11/2023 9:07 AM OPEN HEARTH MELTER Inhaled Oxygen Concentration - - Weight 104.8 kg (231 lb) 02/11/2023 9:07 AM OPEN HEARTH MELTER Height 180.3 cm (5' 11) 02/11/2023 9:07 AM [employer] MEL[facility] Body Mass Index 32.22 02/11/2023 9:07 AM OPEN [facility]ARTH MELTER Plan of Treatment Not on file Insurance [facility] MEDICARE ADVANTAGE Care Teams General Distillery Worker Relationship Specialty Start Date End Date Alexander Donald MD [address] [place] [address] PCP - General 03/20/16 Edmond Baez MD [address] [place], [place] [id number] Radiation Oncologist Radiation Oncology 06/12/21
--- OUTSIDE RECORDS SUMMARY | 2024-09-01 11:09 | XMS_ITS | Clinical Summary ---
Author Organization [facility] [address] Address [address] [place] [address] Care Team Providers Care Airport Utility Worker Name Role Phone Alexander Donald MD Primary Care Provider [phone] Edmond Baez MD Unavailable [phone] Allergies Active Allergy Reactions Criticality Noted Date [...] Active Problems Problem Noted Date Diagnosed Date intermediate current use of antiarrhythmic drug Assessment & Plan (04/10/2021 2:24 PM CELLOPHANE WRAPPING EXAMINER): 12-lead ECG today does not demonstrate any [...] (04/06/2019): Added automatically from request for surgery [id number] Finger laceration, initial encounter 10/06/2018 Ventricular ectopy 01/26/2018 Assessment & Plan (01/26/2018 3:35 PM CELLOPHANE WRAPPING EXAMINER): The patient also appears to have symptomatic ventricular ectopy, as recorded by his home device. This arrhythmia would also respond to antiarrhythmic drug therapy. We will arrange appropriate follow-up after the results of the patient's echocardiogram. Anticoagulation management encounter 01/26/2018 Assessment & Plan (04/10/2021 2:24 PM CELLOPHANE WRAPPING EXAMINER): The patient has a [id number] score of 4 (annualized risk of stroke 4 %). I have therefore recommended continued anticoagulation for thromboprophylaxis. The patient will follow-up with me in 12 months for an office visit and twelve- lead ECG. Assessment & Plan (01/26/2018 3:35 PM CELLOPHANE WRAPPING EXAMINER): The patient has a [id number] score of 4 (annualized risk of stroke 4.0 %). I have therefore recommended that he remain anticoagulated for thromboprophylaxis. Paroxysmal atrial fibrillation 04/12/2014 Overview (05/29/2016): PAF (paroxysmal atrial fibrillation) Assessment & Plan (04/07/2022 5:22 PM CELLOPHANE WRAPPING EXAMINER): Symptomatic paroxysmal atrial fibrillation, presently managed with [...] monitor for toxicity. The patient has a [id number] score of 4 (annualized risk of stroke 4%). I have therefore recommended continued anticoagulation for thromboprophylaxis. The patient will follow-up with me in 12 months for an office visit and twelve- lead ECG. Assessment & Plan (04/10/2021 2:23 PM CELLOPHANE WRAPPING EXAMINER): Paroxysmal atrial fibrillation, symptomatic. He is doing well with antiarrhythmic drug therapy with flecainide. Assessment & Plan (01/26/2018 3:33 PM CELLOPHANE WRAPPING EXAMINER): The patient has symptomatic paroxysmal atrial fibrillation. [...] attack) Hypertension 04/12/2014 Overview (05/29/2016): HTN (hypertension) Encounters Date Type Department Care Team Description 07/15/2024 9:30 AM CDT Office Visit [facility] [address] [facility] [address] [place] [address] Foot drop, right foot from Last 3 Months Immunizations Immunization Administration Dates Next Due Influenza, Quadrivalent, Spl it, Preservative Free, Intramuscular 12/14/2017,12/13/2017 Influenza, Trivalent, High D ose, Split, Preservative Free, Intramuscular 02/28/2019 Influenza, Trivalent, IM (MDV) 12/23/2013,2013 Influenza, Trivalent, Preser vative Free, Intramuscular 11/28/2016,12/18/2015,01/29/2015,03/08 Tdap 09/27/2018 Surgical History Surgery Date Site/Laterality Comments GANGLION CYST EXCISION Left LEG SURGERY Injury where a large chunk of skin sewn back on and then had plastic surgery at 11 or 12 years old IMPLANT x2 OTHER SURGICAL HISTORY 09/23/2018 - 10/23/2018 Tips of middle finger and ring finger of left hand cut off/ reattached Medical History Medical History Date Comments Hypertension Hypertension Hx Other Medical Dyslipidemia Hx Other Medical Low testosteron e Hyperlipidemia Atrial fibrillation (HCC) Dr. Chu - in [place], [place] last saw Feb 2019 TIA (transient ischemic attack) 2000 Skin cancer Family History Medical History Relation Name Comments Heart attack Father Myocardial Infa rction; Cause of : Myocardial Infarction Kidney failure Mother Relation Name Status Comments Father (Age 70) Mother Social History Tobacco Use Types Packs/Day Years [...] on file Legal Sex Male 3:55 PM CELLOPHANE WRAPPING EXAMINER Gender Identity Not on file Sexual Orientation Not on file Obstetrics History Last Filed Vital Signs Vital Sign Reading Time Taken Comments Blood Pressure 132/70 02/11/2023 9:07 AM CELLOPHANE WRAPPING EXAMINER Pulse 64 02/11/2023 9:07 AM CELLOPHANE WRAPPING EXAMINER Temperature 37.4 C (99.3 F) 08/22/2020 10:09 AM CDT Respiratory Rate 18 04/03/2022 12:56 PM CELLOPHANE WRAPPING EXAMINER Oxygen Saturation 94% 02/11/2023 9:07 AM CELLOPHANE WRAPPING EXAMINER Inhaled Oxygen Concentration - - Weight 104.8 kg (231 lb) 02/11/2023 9:07 AM CELLOPHANE WRAPPING EXAMINER Height 180.3 cm (5' 11) 02/11/2023 9:07 AM CELLOPHANE WRAPPING EXAMINER Body Mass Index 32.22 02/11/2023 9:07 AM CELLOPHANE WRAPPING EXAMINER Plan of Treatment Health Maintenance Due Date Last Done Comments Colon Cancer Screening-Colonoscopy 1955 Depression Screening 1955 Hepatitis C Screening 1955 Hepatitis B Screening 12/10/1971 Zoster Vaccine (1 of 2) 12/10/2003 Well Visit 65+ 2018 Fall Risk Assessment 05/05/2020 05/06/2019 Pneumococcal vaccine 65+ (2 of 2 - PCV) 11/11/2020 11/12/2019 Covid-19 Vaccine (4 - 2023-2 5 season) 2023 01/15/2021, 05/13/2020, 04/22/2020 Influenza Vaccine (#1) 2024 , 02/28/2019, 12/14/2017, Additional history exists DTaP/Tdap/Td Vaccine (3 - Td or Tdap) 02/15/2034 02/16/2024, 09/27/2018 Abdominal Aortic Aneurysm (A AA) Screen Completed 02/21/2024, 02/16/2024 Insurance [facility] MEDICARE Address: [address] [place] [address] [address] [facility] MEDICARE Address: [facility] [address] [place] [address] [facility] MEDICARE ADVANTAGE [facility] MEDICARE Address: [facility] [address] [place] [address] Care Teams Airport Utility Worker Relationship Specialty Start Date End Date Alexandre Donald MD [address] [facility] [address] [place] [address] PCP - General 03/20/16 Edmond Baez MD [address] [facility] [address] [place] [address] Radiation Oncologist Radiation Oncology 06/12/21
--- OUTSIDE RECORDS SUMMARY | 2024-09-01 11:09 | XMS_ITS | Clinical Summary ---
Author Organization [facility] Address [address] [place] [address] Care Team Providers Care Convention Manager Name Role Phone Alexander Donald DO Primary Care Provider [phone] Source Comments [facility],non-[facility] Affiliates and Associated Physician Practices is amultiple site organization consisting of ambulatory clinics and hospital sitesin [place], [place], [place] and [place]. This disclosure is being madepursuant to the Care Everywhere program and may not contain all information available regarding this patient. Last updated 17.[facility] Allergies Active Allergy Reactions Criticality Noted Date Comments Clarithromycin Unknown Reaction: discolored skin, Medications * Be aware that medications may not be up to date on this document. Alwaysverify current medications with the patient. rosuvastatin (Crestor) 20 MG tablet Take 1 (one) tablet by mouth once daily Active metoprolol succinate XL 24hr (Toprol XL) 100 MG tablet Take 1 (one) tablet by mouth 2 times daily Active olmesartan-hyd roCHLOROthiazi de (Benicar HCT) 40-25 MG tablet Take 1 (one) tablet by mouth once daily Active aspirin (Aspirin) 81 MG chew tablet Take 1 (one) tablet by mouth once daily Active allopurinol (Zyloprim) 100 MG tablet Take 1 (one) tablet by mouth once daily Active colchicine 0.6 MG tablet Take 1 (one) tablet by mouth once daily Active flecainide (Tambocor) 50 MG tablet Take 1 (one) tablet by mouth 2 times daily Active oxyCODONE, immediate release, (Roxicodone) 10 MG tabletIndicati ons:Trauma,Acu te pain Take 1 (one) tablet by mouth every 4 hours as needed 12 tablet 5 Active Additional Information Patient not taking.Reason: Patient adjusted, Reported on 06/28/2024 acetaminophen (Tylenol) 500 MG tablet Take 2 (two) tablets by mouth every 8 hours Maximum allowable Acetaminophen amount = 4 Grams (4000 mg) / 24 hours. 5 Active hydrOXYzine HCl (Atarax) 25 MG tablet Take 1 (one) tablet by mouth 3 times daily as needed 5 Active Additional Information Patient not taking.Reason: Patient adjusted, Reported on 06/28/2024 gabapentin (Neurontin) 300 MG capsule Take 1 (one) capsule by mouth 3 times daily 5 Active Additional Information Patient not taking.Reason: Patient adjusted, Reported on 06/28/2024 traZODone (Desyrel) 50 MG tablet Take 1 (one) tablet by mouth at bedtime 5 Active Additional Information Patient not taking.Reason: Patient adjusted, Reported on 06/28/2024 bacitracin ointment Apply to affected area 2 times daily 5 Active Additional Information Patient not taking.Reason: Patient adjusted, Reported on 06/28/2024 lidocaine (Lidoderm) 5 % patch Apply 1 (one) patch to skin every 24 hours Apply patch to most painful area and remove after 12 hours. May reapply a new patch 12 hours later. 5 Active Additional Information Patient not taking.Reason: Patient adjusted, Reported on 06/28/2024 bisacodyl EC (Dulcolax) 5 MG tablet Take 1 (one) tablet by mouth once daily as needed for Constipation 5 Active Additional Information Patient not taking.Reason: Patient adjusted, Reported on 06/28/2024 polyethylene glycol 3350 (Miralax) 17 g packet Take 17 (seventeen) g by mouth once daily 5 Active Additional Information Patient not taking.Reason: Patient adjusted, Reported on 06/28/2024 senna (Senokot) 8.6 MG tablet Take 1 (one) tablet by mouth once daily 5 Active Additional Information Patient not taking.Reason: Patient adjusted, Reported on 06/28/2024 methocarbamol (Robaxin) 500 MG tablet Take 1 (one) tablet by mouth every 8 hours as needed for Muscle Spasms 5 Active Additional Information Patient not taking.Reason: Patient adjusted, Reported on 06/28/2024 vitamin D3 (Cholecalcifer ol) 25 MCG (1000 UNITS) tablet Take 1 (one) tablet by mouth once daily 5 Active Additional Information Patient not taking.Reason: Patient adjusted, Reported on 06/28/2024 apixaban (Eliquis) 2.5 MG tablet Take 1 (one) tablet by mouth 2 times daily for 35 days 5 Active Additional Information Patient not taking.Reason: Patient adjusted, Reported on 06/28/2024 tamsulosin (Flomax) 0.4 MG capsule Take 1 (one) capsule by mouth once daily At the same time every day after a meal. 5 Active Additional Information Patient not taking.Reason: Patient adjusted, Reported on 06/28/2024 oxyCODONE, immediate release, (Roxicodone) 5 MG tabletIndicati ons:Trauma,Acu te pain Take 1 (one) tablet by mouth every 4 hours as needed 12 tablet 5 Active Additional Information Patient not taking.Reason: Patient adjusted, Reported on 06/28/2024 diazePAM (Valium) 5 MG tablet Take 1 (one) tablet by mouth 3 times daily as needed 28 tablet 5 Active Additional Information Patient not taking.Reason: Patient adjusted, Reported on 06/28/2024 Active Problems Problem Noted Date Diagnosed Date Hyperlipidemia 06/28/2024 Mild CAD 06/28/2024 Impaired mobility and activities of daily living 03/02/2024 Ventricular arrhythmia 02/29/2024 Acute pain 02/18/2024 Intraventricular hemorrhage 02/18/2024 Adrenal nodule 02/18/2024 Scalp hematoma 02/18/2024 Acute blood loss anemia 02/18/2024 Abrasions of multiple sites 02/18/2024 Trauma 02/16/2024 Closed fracture dislocation of lumbar spine, initial encounter 02/16/2024 Closed fracture of right tibial plateau, initial encounter 02/16/2024 skilled nursing current use of antiarrhythmic drug Weakness 08/22/2020 Squamous cell carcinoma of skin of left cheek Enthesopathy of hip region 05/18/2019 Knee pain 05/18/2019 Lateral epicondylitis 05/18/2019 Pain in limb 05/18/2019 Ganglion cyst of volar aspect of right wrist 01/2020 Overview (06/28/2024): Added automatically from request for surgery [id number] Anticoagulation management encounter 01/26/2018 History of transient cerebral ischemia 5 Overview (06/28/2024): History of TIA (transient ischemic attack) Hypertension 04/12/2014 Overview (06/28/2024): HTN (hypertension) Paroxysmal atrial fibrillation 04/12/2014 Overview (06/28/2024): PAF (paroxysmal atrial fibrillation) Family history of other specified conditions 02/1961 Resolved Problems Problem Noted Date Diagnosed Date Resolved Date Finger laceration, initial encounter 10/06/2018 02/18/2024 Encounters Date Type Department Care Team Description 08/29/2024 10:01 AM CDT - 08/29/2024 11:59 PM CDT Hospital Encounter [facility] DIAGNOSTIC RAD [facility]SM [address] [facility] [place] [address] Cleopatra Dietz MD Discharge Disposition: Home or Self Care 08/29/2024 10:00 AM CDT Office Visit [facility] - Orthopedics [address] [place] [address] None, Physician Cleopatra Dietz MD Arrived 08/29/2024 Travel 08/22/2024 11:17 AM CDT - 08/22/2024 11:59 PM CDT Hospital Encounter [facility] MRI [address] [place] [phone] Zana Chavis MD Discharge Disposition: Home or Self Care 08/22/2024 10:59 AM CDT - 08/22/2024 11:16 AM CDT Hospital Encounter [facility] EEG/EMG [address] [place] [address] Zana Chavis MD Discharge Disposition: Home or Self Care 08/22/2024 Travel 08/18/2024 Orders Only [facility] - Orthopedics [address] [place] [phone] Cleopatra Dietz MD Closed fracture of right tibial plateau with routine healing, subsequent encounter 08/09/2024 Travel 06/28/2024 8:30 AM CDT Office Visit [facility] - Neurology [address] [place] [phone] Zana Chavis MD Closed fracture of right tibial plateau, initial encounter (Primary Dx); Foot drop, right 06/28/2024 Telephone [facility] [address] [place] [phone] Zana Chavis MD Order 06/28/2024 Travel 06/20/2024 9:45 AM CDT Office Visit [facility] - Orthopedics [address] [place] [phone] Cleopatra Dietz MD Palsy of right sciatic nerve (Primary Dx) 06/20/2024 8:45 AM CDT - 06/20/2024 11:59 PM CDT Hospital Encounter [facility] DIAGNOSTIC RAD CSM [address] [place] [address] Cleopatra Dietz MD Discharge Disposition: Home or Self Care 06/20/2024 Travel 06/09/2024 Orders Only [facility] [address] [place] [phone] Cleopatra Dietz MD Closed fracture of right tibial plateau, initial encounter from Last 3 Months Immunizations Immunization Administration Dates Next Due COVID PFIZER 12+YR 30MCG/0.3mL 01/07/2023 COVID PFIZER BIVALENT 12Y+ 30mcg/0.3ML 02/01/2022 Covid Pfizer primary monoval ent 12+ yr 0.3mL Purple cap 01/15/2021,05/13/2020,04/22/2020 FLU VACCINE TRI IIV3 SPLIT I M (FLUVIRIN) 12/23/2013,04/04/2013 INFLUENZA VACCINE, ADJUVANTE D, QUADR. (FLUAD QUADRIVALENT; 65Y+) (AIIV4) 01/07/2023 INFLUENZA VACCINE, HIGH-DOSE , QUADR. (FLUZONE HIGH-DOSE QUADRIVALENT; 65Y+), 0.7 ML (HD-IIV4) 02/01/2022,12/27/2020 INFLUENZA VACCINE, HIGH-DOSE , TRIV. (FLUZONE HIGH-DOSE TRIVALENT; 65Y+) (HD-IIV3) 02/28/2019 INFLUENZA VACCINE, QUADR. (F LUZONE; FLULAVAL; FLUARIX; AFLURIA QUADRIVALENT; 6MO+), 0.5 ML (IIV4) 12/14/2017,12/13/2017 INFLUENZA VACCINE, TRIV. (FL UZONE; FLULAVAL; FLUARIX; AFLURIA TRIVALENT; 6MO+), 0.5 ML (IIV3) 11/12/2019,11/28/2016,12/18/2015,2014,03/08/2012 PNEUMOCOCCAL PPV VACCINE 11/12/2019 TDAP (7yrs+) 02/16/2024,09/27/2018 Social History Tobacco Use Types Packs/Day Years Used Date Smoking Tobacco: Never Smokeless Tobacco: Never Tobacco Cessation:Counseling Given: Not Answered Alcohol Use Standard Drinks/Week Comments No 0 (1 standard drink = 0.6 oz pur e alcohol) AUDIT-C Answer Date Recorded Q1: How often do you have a drink containing alc ohol? Monthly or less 02/17/2024 Q2: How many drinks containi ng alcohol do you have on a typical day when you are drinking? 1 or 2 02/17/2024 Q3: How often do you have si x or more drinks on one occasion? Less than monthly 02/17/2024 Overall Financial Resource Strain (CARDIA) Answe r Date Recorded How hard is it for you to pa y for the very basics like food, housing, medical care, and heating? Not hard at all 02/17/2024 PHQ-2 Answer Date Recorded Patient Health Questionnaire-2 Score 0 08/29/2024 [place] [facility] - Occupational Stress Questionnaire Answer Date Recorded Do you feel stress - tense, restless, nervous, or anxious, or unable to sleep at night because your mind is troubled all the time - these days? Not at all 02/17/2024 Hunger Vital Sign Answer Date Recorded Within the past 12 months, y ou worried that your food would run out before you got the money to buy more. Never true 02/17/20 24 Within the past 12 months, t he food you bought just didn't last and you didn't have money to get more. Never true 02/17/2024 PRAPARE - Transportation Answer Date Re corded In the past 12 months, has l ack of transportation kept you from medical appointments or from getting medications? No 01/24 In the past 12 months, has l ack of transportation kept you from meetings, work, or from getting things needed for daily living? No 02/17/2024 Housing Stability Vital Sign Answer Ezekiel e Recorded In the last 12 months, was t here a time when you were not able to pay the mortgage or rent on time? No 02/17/2024 In the past 12 months, how m any times have you moved where you were living? 0 02/17/2024 At any time in the past 12 m [facility], were you homeless or living in a [place] facility (including now)? No 02/17/2024 Sex and Gender Information Value Date Recorded Sex Assigned at Not on file Legal Sex Male 5:22 PM OB TECH Gender Identity Not on file Sexual Orientation Not on file Last Filed Vital Signs Vital Sign Reading Time Taken Comments Blood Pressure 123/82 06/28/2024 8:17 AM CDT Pulse 68 06/28/2024 8:17 AM CDT Temperature 36.8 C (98.2 F) 03/28/2024 11:55 AM OB TECH Respiratory Rate 18 03/28/2024 11:55 AM OB TECH Oxygen Saturation 94% 06/28/2024 8:17 AM CDT Inhaled Oxygen Concentration - - Weight 104.3 kg (230 lb) 08/29/2024 10:27 AM CDT Height 180.3 cm (5' 11) 08/29/2024 10:27 AM CDT Body Mass Index 32.08 08/29/2024 10:27 AM CDT Plan of Treatment Upcoming Encounters Date Type Department Care Team (Late st Contact Info) Description 02/06/2025 10:00 AM OB TECH Office Visit [facility] [address] [place] [address] None, Physician Cleopatra Dietz MD [address] [place] [address] Health Maintenance Due Date Last Done Comments COLOGUARD (AGES 45-75) - COLON CA SCREENING 1953 COLON MONITORING 1953 COLONOSCOPY - COLON CA SCREENING 1953 CT COLONOGRAPHY - COLON CA SCREENING 1955 Colorectal Cancer Screening 1953 FIT - COLON CA SCREENING 1953 FLEX SIG - COLON CA SCREENING 1953 ZOSTER VACCINE (1 of 2) 12/10/2003 Respiratory Syncytial Virus (RSV) Vaccine Pt: or over 60 yrs (1 - Risk 60-74 years 1-dose series) 2013 PNEUMOCOCCAL VACCINE 50+ (2 of 2 - PCV) 11/11/2020 11/12/2019 COVID-19 VACCINE ( season) 2023 01/07/2023, 02/01/2022, 01/15/2021, Additional history exists MEDICARE AWV CALENDAR YEAR 2024 INFLUENZA VACCINE (#1) 2024 3, 02/01/2022, 12/27/2020, Additional history exists SCREENING FOR DIABETES 03/08/2027 5, 03/03/2024, 03/02/2024, Additional history exists DTAP/TDAP/TD VACCINES (3 - Td or Tdap) 02/15/2034 02/16/2024, 09/27/2018 HEPATITIS C SCREENING Completed 09/27/2018 DEPRESSION SCREENING Completed 03/28/2024 HEPATITIS B VACCINE Aged Out No longe r eligible based on patient's age to complete this topic HIB VACCINE Aged Out No longer eligi ble based on patient's age to complete this topic HPV VACCINE Aged Out No longer eligi ble based on patient's age to complete this topic MENINGOCOCCAL (Group B) VACCINE SHARED DECISION-MAKING Aged Out No longer eligible based on patient's age to complete this topic MENINGOCOCCAL GROUPS A/C/Y/W VACCINE Aged Out No longer eligible based on patient's age to complete this topic Goals Goal Patient Goal Type Associated Problems Recent Progress Patient-Stated? Author Mobility General No Shannon Walton, RN Note: Expected end date: 04/22/2024 The goal is to maintain or improve your mobility at the optimum level for you. Interventions: Plan activities to conserve energy Medical Devices Implanted Type Area Industrial Engineering Technologist Device Identifier Shelf Expiration Date Model / Serial / Lot Screw 5mm 200mm Dist Rds Blnt Troc Pnt Implanted:Qty: 4 on 02/17/2024 by Silvino Cárdenas DO at [facility] Synthes Usa 294.56 / / Graft Bone Canc 4-9.5mm 15cc Frzdr [facility] - [id number] Implanted:Qty: 1 on 02/29/2024 by Oniel Caro MD at [facility] Right: Tibia [employer] 10/11/2028 [id number] / [id number] / [id number] Screw 4mm 6mm 80mm 2.5mm Ft Slf-Tap Sm Implanted:Qty: 1 on 02/29/2024 by Oniel Caro MD at [facility] Right: Tibia [employer] Usa 206.480 / / Screw 4mm 6mm 80mm 2.5mm Ft Slf-Tap Sm Implanted:Qty: 1 on 02/29/2024 by Oniel Caro MD at [facility] Right: Tibia [employer] Trauma 206.485 / / 2.4mm X 80 Cortical Implanted:Qty: 2 on 02/29/2024 by Oniel Caro MD at [facility] Right: Tibia [employer] Trauma .210.980 / / 2.4mm X 75mm Cortical Implanted:Qty: 1 on 02/29/2024 by Oniel Caro MD at [facility] Right: [employer] Trauma 210.975 / / Screw 3.5mm 85mm T15 Slf-Tap Lck Va Implanted:Qty: 2 on 02/29/2024 by Oniel Caro MD at [facility] Right: Tibia [employer]sa 02.127.185 / / Screw 3.5mm 80mm T15 Slf-Tap Lck Va Implanted:Qty: 2 on 02/29/2024 by Oniel Caro MD at [facility] Right: [employer] 02.127.180 / / Screw 3.5mm 6mm 50mm Slf-Tap Sm Hex Sckt Implanted:Qty: 1 on 02/29/2024 by Cleopatra Dietz MD at [facility] Right: [employer]sa 204.850 / / Screw 3.5mm 6mm 60mm Slf-Tap Sm Hex Sckt Implanted:Qty: 1 on 02/29/2024 by Cleopatra Dietz MD at [facility] Right: [employer]sa 204.860 / / Graft Bone Canc 60ml Frzdr Chp 4-9.5mm - [id number] Implanted:Qty: 1 on 02/29/2024 by Cleopatra Dietz MD at [facility] Right: [employer]ia [employer] 09/19/2027 [id number] / [id number] / [id number] 6 Hole Right Medial Prox Tib Plate Implanted:Qty: 1 on 02/29/2024 by Oniel Caro MD at [facility] Right: [employer]ia [employer] Trauma 239.956S / / Screw 3.5mm 6mm 34mm 2.5mm Ft Slf-Tap Implanted:Qty: 1 on 02/29/2024 by Oniel Caro MD at [facility] Right: Tibia [employer] Usa 204.834 / / 2.0 Volt (Tm) Adaption Plate Implanted:Qty: 1 on 02/29/2024 by Oniel Caro MD at [facility] Right: Tibia 02.420.040 / / Plate Strg 84x10.1x3.5mm Ss 3.5mm Scr Sm Implanted:Qty: 1 on 02/29/2024 by Cleopatra Dietz MD at [facility] Right: Tibia [employer] Usa 245.061 / / Screw 3.5mm 6mm 44mm 2.5mm Ft Slf-Tap Implanted:Qty: 1 on 02/29/2024 by Cleopatra Dietz MD at [facility] Right: Tibia [employer]sa 204.844 / / Screw 3.5mm 6mm 46mm 2.5mm Ft Slf-Tap Implanted:Qty: 1 on 02/29/2024 by Cleopatra Dietz MD at [facility] Right: [employer]ia [employer]sa 204.846 / / Screw 3.5mm 6mm 55mm 2.5mm Ft Slf-Tap Implanted:Qty: 1 on 02/29/2024 by Cleopatra Dietz MD at [facility] Right: [employer]ia [employer]sa 204.855 / / Explanted Type Area Industrial Engineering Technologist Device Identifier Shelf Expiration Date Model / Serial / Lot 3.5mm X 90mm Va Locking Explanted:Qty: 1 on 02/29/2024 by Cleopatra Dietz MD at [facility] Right: Tibia [employer] Trauma 02.127.190 / / Screw 3.5mm 6mm 70mm Ft [place] Slf-Tap Sm Explanted:Qty: 1 on 02/29/2024 by Oniel Caro MD at [facility] Right: Tibia [employer] Usa 204.870 / / Screw Extfix 170mm 5mm Schnz Xlng Plvc Explanted:Qty: 1 on 02/29/2024 by Oniel Caro MD at [facility] Right: Tibia [employer]sa 294.55 / / Screw 5mm 200mm Dist Rds Blnt Troc Pnt Explanted:Qty: 1 on 02/29/2024 by Oniel Caro MD at [facility] Right: Tibia [employer] Usa 294.56 / / Gw Orth 200mm 1.6mm Lcp Perc Ss Drl Tip Explanted:Qty: 5 on 02/29/2024 by Oniel Caro MD at [facility] Right: Tibia [employer]sa 02.113.001 / / Procedures Procedure Name Priority Date/Time Associated Diagnosis Comments XR KNEE RIGHT 3VW Routine 08/29/2024 10: 17 AM CDT Closed fracture of right tibial plateau with routine healing, subsequent encounter MRI LUMBAR SPINE WO CONTRAST Routine 08/22/2024 11:59 AM CDT Closed fracture of right tibial plateau, initial encounter Foot drop, right XR KNEE RIGHT 3VW Routine 06/20/2024 8:5 1 AM CDT Closed fracture of right tibial plateau, initial encounter BASIC METABOLIC PANEL (CALCIUM TOTAL) AM Draw 03/08/2024 2:20 AM OB TECH HEPATITIS C AB SCREEN RFLX NAAT QUANT STAT 09/27/2018 4:32 PM CDT from Last 3 Months or Most Recently Relevant to Health Maintenance Results * XR Knee Right 3Vw (08/29/2024 10:17 AM CDT) Only the most recent of2 resultswithin the time period is included. Anatomical Region Laterality Modality Lower Extremity Radiographic Suzan ging 08/29/2024 10:3 8 AM CDT Impressions 08/29/2024 10:38 AM CDT IMPRESSION: Unchanged fracture alignment. > Interpreting Provider: Rafael Valle MD on 08/29/2024 10:38 AM Narrative 08/29/2024 10:38 AM CDT PROCEDURE: XR KNEE RIGHT 3VW DATE/TIME OF EXAM: 08/29/2024 10:17 AM CLINICAL INFORMATION: None relevant/not provided if blank. Indication: S82.141D: Closed fracture of right tibial plateau with routine healing, subsequent encounter Additional History: COMPARISON: 06/20/2024. FINDINGS: There are again findings of open reduction and internal fixation of a tibial plateau fracture with plates and screws. The hardware is intact. The alignment is unchanged. There is no dislocation. The joint spaces are normal. There is no effusion. Procedure Note Rafael Valle MD - 08/29/2024 PROCEDURE: XR KNEE RIGHT 3VW DATE/TIME OF EXAM: 08/29/2024 10:17 AM CLINICAL INFORMATION: None relevant/not provided if blank. Indication: S82.141D: Closed fracture of right tibial plateau withroutine healing, subsequent encounter Additional History: COMPARISON: 06/20/2024. FINDINGS: There are again findings of open reduction and internal fixation of a tibial plateau fracture with plates and screws. The hardware is intact.The alignment is unchanged. There is no dislocation. The joint spaces are normal. There is no effusion. IMPRESSION: Unchanged fracture alignment. > Interpreting Provider: Rafael Valle MD on 08/29/2024 10:38 AM us Cleopatra Dietz MD DIAGNOSTIC IMAGING ORDERABLES Fi nal Result * MRI Lumbar Spine Wo Contrast (08/22/2024 11:59 AM CDT) Anatomical Region Laterality Modality Spine Magnetic Resonan ce 08/25/2024 12:3 0 PM CDT Impressions 08/25/2024 2:10 PM CDT IMPRESSION: 1. Mild retrolisthesis of L3 on L4 with moderate to severe central canal stenosis at this level. 2. Posterior spinal fusion of L4-5 with rods and screws and laminectomies at these levels. 3. A 1.8 cm measuring right adrenal nodule, unchanged. > Dictated by Enrique Devine MD, in the presence of Jesus Reyes MD, (vice president marketing & development). > Interpreting Provider: Enrique Devine MD on 08/25/2024 2:10 PM Narrative 08/25/2024 2:10 PM CDT MRI LUMBAR SPINE WO CONTRAST DATE: 08/22/2024 11:59 AM EXAMINATION: Magnetic resonance imaging (MRI) of the lumbar spine contrast HISTORY: S82.141A: Closed fracture of right tibial plateau, initial encounter M21.371: Foot drop, right TECHNIQUE: MRI of the lumbar spine was performed contrast according to standard protocol. COMPARISON: CT lumbar spine without contrast dated 02/16/2024 FINDINGS: Mild retrolisthesis of L3 on L4, unchanged. The alignment is otherwise normal. Posterior spinal fusion of L4-5 with rods and screws with susceptibility artifacts and image distortion. Laminectomies at these levels. Vertebral bodies are normal in height without evidence of compression fractures. Chronic fractures of left transverse processes of L1-L3 vertebra. Marrow signal intensity is normal. The conus medullaris terminates at the level of T12 and the distal spinal cord signal intensity is normal. The intervertebral discs are normal in height. 1.8 cm measuring right adrenal nodule, grossly unchanged. Otherwise no soft tissue abnormality is identified. T11-T12: There is mild left posterolateral disc protrusion. There is mild central canal stenosis. There is mild facet osteoarthritis. There is no neural foraminal stenosis. T12-L1: There is mild disc bulge. There is no central canal stenosis. There is no facet osteoarthritis. There is no neural foraminal stenosis. L1-L2: There is no disc bulge. There is no central canal stenosis. There is mild facet osteoarthritis. There is no neural foraminal stenosis. L2-L3: There is mild disc bulge. There is no central canal stenosis. There is no facet osteoarthritis. There is no neural foraminal stenosis. L3-L4: There is mild disc bulge. There is moderate to severe central canal stenosis. There is moderate facet osteoarthritis. There is mild bilateral neural foraminal stenosis. L4-L5: There is no disc bulge. There is no central canal stenosis. There is no facet osteoarthritis. There is no neural foraminal stenosis. L5-S1: There is no disc bulge. There is no central canal stenosis. There is no facet osteoarthritis. There is no neural foraminal stenosis. Procedure Note Enrique Devine MD - 08/25/2024 MRI LUMBAR SPINE WO CONTRAST DATE: 08/22/2024 11:59 AM EXAMINATION: Magnetic resonance imaging (MRI) of the lumbar spinecontrast HISTORY: S82.141A: Closed fracture of right tibial plateau, initial encounter M21.371: Foot drop, right TECHNIQUE: MRI of the lumbar spine was performed contrast according to standard protocol. COMPARISON: CT lumbar spine without contrast dated 02/16/2024 FINDINGS: Mild retrolisthesis of L3 on L4, unchanged. The alignment is otherwise normal. Posterior spinal fusion of L4-5 with rods and screws with susceptibility artifacts and image distortion. Laminectomies at these levels. Vertebral bodies are normal in height without evidence of compression fractures. Chronic fractures of left transverse processes of L1-L3 vertebra. Marrow signal intensity is normal. The conus medullaris terminates at the level of T12 and the distal spinal cord signalintensity is normal. The intervertebral discs are normal in height. 1.8 cmmeasuring right adrenal nodule, grossly unchanged. Otherwise no soft tissue abnormality is identified. T11-T12: There is mild left posterolateral disc protrusion. There ismild central canal stenosis. There is mild facet osteoarthritis. There is no neural foraminal stenosis. T12-L1: There is mild disc bulge. There is no central canal stenosis.There is no facet osteoarthritis. There is no neural foraminal stenosis. L1-L2: There is no disc bulge. There is no central canal stenosis. Thereis mild facet osteoarthritis. There is no neural foraminal stenosis. L2-L3: There is mild disc bulge. There is no central canal stenosis.There is no facet osteoarthritis. There is no neural foraminal stenosis. L3-L4: There is mild disc bulge. There is moderate to severe centralcanal stenosis. There is moderate facet osteoarthritis. There is mildbilateral neural foraminal stenosis. L4-L5: There is no disc bulge. There is no central canal stenosis. Thereis no facet osteoarthritis. There is no neural foraminal stenosis. L5-S1: There is no disc bulge. There is no central canal stenosis. Thereis no facet osteoarthritis. There is no neural foraminal stenosis. IMPRESSION: 1. Mild retrolisthesis of L3 on L4 with moderate to severe central canal stenosis at this level. 2. Posterior spinal fusion of L4-5 with rods and screws andlaminectomies at these levels. 3. A 1.8 cm measuring right adrenal nodule, unchanged. > Dictated by Enrique Devine MD, in the presence of Jesus Reyes MD, (vice president marketing & development). > Interpreting Provider: Enrique Devnie MD on 08/25/2024 2:10 PM Zana Chavis MD MR ORDERABLES Final Result * BASIC METABOLIC PANEL (CALCIUM TOTAL) (03/08/2024 2:20 AM [facility]) BUN 13 7 - 26 mg/dL 03/08/2024 3:43 AM [facility] Creatinine 0.86 0.71 - 1.16 mg/dL 03/08/2024 3:43 AM [facility] Sodium 138 136 - 145 mmol/L 03/08/2024 3:43 AM [facility] Potassium 4.1 3.5 - 4.5 mmol/L 03/08/2024 3:43 AM [facility] Chloride 101 98 - 107 mmol/L 03/08/2024 3:43 AM [facility] CO2 28 22 - 29 mmol/L 03/08/2024 3:43 AM [facility] Glucose 92 70 - 99 mg/dL 03/08/2024 3:43 AM [facility] Calcium 8.6 8.4 - 10.2 mg/dL 03/08/2024 3:43 AM [facility] Anion Gap 9 6 - 16 03/08/2024 3:43 AM [facility] BUN/Creatinine Ratio 15 7 - 23 03/08/2024 3:43 AM [facility] Osmolality Calculated 286 275 - 295 mOsm/kg 03/08/2024 3:43 AM [facility] eGFR by CKD-EPI >90 >=90 mL/min/1.7 3 m2 03/08/2024 3:43 AM [facility] Blood BLOOD SPECIMEN / Unknown Lab Venipuncture / Unknown 03/08/2024 2:20 AM [facility] 03/08/2024 3:15 AM [facility] us Elida Weston PODIATRIST ORTHOPEDIC-WOODWORKER HELPER LAB - CHEMISTRY ORDERABLE S Final Result [address] [address], [facility] [phone] * HEPATITIS C AB SCREEN RFLX NAAT QUANT (09/27/2018 4:32 PM CDT) Hepatitis C Antibody Non-react joannjackelyn Mcintyre-reac timontana 09/27/2018 5:12 PM CDT [facility] Comment: Hepatitis C Antibody screen indicates no serologic evidence of past or current infection with Hepatitis C Virus. Patients with unexplained liver disease who are immunocompromised or suspected of having acute Hepatitis C infection may benefit from Nucleic Acid Test (NILSON) for Hepatitis C Viral RNA to confirm Hepatitis C status. Blood BLOOD SPECIMEN / Unknown Venipuncture / Unknown 09/27/2018 4:32 PM CDT 09/27/2018 4:32 PM CDT us Nelson Ware MD LAB - CHEMISTRY ORDERABLES Final Result [facility] [address] [phone] from Last 3 Months or Most Recently Relevant to Health Maintenance Insurance PAYOR GENERIC PAYOR GENERIC Member Subscriber Plan / Payer (Ef fective 2018-Present) Name:Ayan Travis Member ID:[id number] Relation to Subscriber:Self Name:Ayan Travis Subscriber ID:[id number] Payer ID:Not on file Group ID:Not on file Type:Worker's Comp Address: [place] [id number] * Guarantor: [id number] Account Type Relation to Patient Date of Phone Billing Address Workers Comp EMPLOYEE [address] [place] [id number] WORKERS COMP PAYOR GENERIC TPL THIRD LIBERTARIAN LIABILITY Member Subscriber Plan / Payer (Ef fective for All Dates) Name:Ayan Travis Relation to Subscriber:Self Name:Ayan Travis Payer ID:Not on file Group ID:Not on file Type:Third Green Party Liability Address: [address] MANAGED MEDICARE ADV TPL THIRD LIBERTARIAN LIABILITY Advance Directives * Full Code (Latest Code Status on File) Date Activated Date Inactivated Comments 02/16/2024 8:58 PM 03/08/2024 10:24 PM Care Teams Convention Manager Relationship Specialty Start Date End Date Alexander Donlad DO [address] [facility] [address] [facility] [address] [place] [address] PCP - General Internal Medicine 09/27/18
--- OUTSIDE RECORDS SUMMARY | 2024-09-01 11:09 | XMS_ITS | Data Portability ---
Author Organization [place] [facility], Main Office Address [address] [place] [address] Care Team Providers Care Senior Ui Software Engineer Name Role Phone CORNELIA HEALY Primary Care Provider [phone] CORNELIA HEALY Referring Provider Assessment Encounter Date Assessment Date Assessment LastModified by Organization Details LastModified Time 04/28/2022 04/28/2022 My impression is patient bruised his foot foot and ankle right. Particularly the perineal area. Will try some anti-inflammato ry medication to see if this helps he is going to take it easy for a while and see if this settles down. The tendons appear to be intact. If for some reason it does not settle down the next step would be an MRI scan. I think he strained his peroneal tendons and I will see him back in a month for follow-up. For prescription drug management will try a course of diclofenac for pain and inflammation. foreign Not available 04/28/2022 10:55:59 Plan of Treatment Reminders Order Date Submit Date Provider Last Modified By Organization Details Last Modified Time Details Appointments None recorded. Lab None recorded. Referral None recorded. Procedures None recorded. Surgeries None recorded. Imaging XR, foot, 3 or more view 2022 023 [email or web address] [facility], [address], [place], [address], 11:43:21 Medication Orders diclofenac sodium 75 mg tablet,edward yed release 2022 023 zac [id number], [address], [place], [place], [phone], 3 10:59:25 Patient TargetsNo targets recorded. Patient InstructionsNo instructions recorded. Reason for Referral None Reported. Results Created Date Observation Date Name Description Value Unit Range Abnormal Flag Note LastModifiedBy Organization Detail LastModifiedTime 09/20/19 21 09/19/2020 XR, hip + pelvi s, unila teral No observ ation record ed. [id number] [facility] [place] [address], [place], [address], 04/23/2022 13:31:29 09/22/19 21 MRI, lumba r spine , w/o contr ast [facility] [address], [place] [address] Patien t Name: AYAN WEI Access ion #: [id number] Sex: M : 1955 5 Locati on: RA2 Attend ing Physic neela: PIYUSH BELCHER Orderi Physic neela: PIYUSH BELCHER Exam Date: 021 8:35 AM Exam Name: MRI L SPINE WO Admitt ing Diagno sis(es ): RADIOL OGY REPORT - FINAL EXAM: MRI L SPINE WO HISTOR Y: radicu lopath y COMPAR TERESA: None. TECHNI QUE: Multip lanar multis equenc e non-co ntrast images of lumbar spine are review ed. FINDIN GS: Verteb ral bodies : Multip le benign atsha iomas are noted scatte red throug hout the lumbar spine. Conus medull joseph: Termin ates normal ly Disc spaces : Genera lly preser lalitha. A mild anteri or extrad ural defect is seen Page 1 of 3 [facility] Patien t Name: AYAN WEI Access ion #: [id number] Sex: M : 1955 3 Exam Date: 021 8:35 AM Exam Name: MRI L SPINE WO Admitt ing Diagno sis(es ): at L4-L5 and T11-T1 2 Parave rtebra l soft tissue s: Unrema rkable Vascul ature: Unrema rkable T11-T1 2: A left parace ntral disc protru jeanine is noted which causes anteri or thecal sac efface ment. T12-L1 : Unrema rkable L1-2: Unrema rkable L2-3: Unrema rkable L3-4: Unrema rkable L4-5: A circum ferent ial disc bulge is noted in conjun ction with electronic lab technician ior facet and ligame ntum flavum hypert rophy causin g modera te to severe centra l canal stenos is withou t signif icant forami nal narrow ing. L5-S1: Unrema rkable IMPRES JEANINE: Degene rative change as descri bed above. This is most signif icant at L4-L5 causin g modera te to severe centra l canal stenos is. Create d and electr onical ly signed by: Page 2 of 3 [facility] Patien t Name: AYAN WEI Access ion #: [id number] Sex: M : 1955 5 Exam Date: 8:35 AM Exam Name: MRI L SPINE WO Admitt ing Diagno sis(es ): Jorge Young ch, DO Signed Date: 9:51 AM (CT) Dictat ed by: Jorge Young ch, DO DD: 9:51 AM (CT) DT: 9:51 AM (CT) Page 3 of 3 [id number] [facility] (Imaging) [address] [place], [address], 04/23/2022 13:31:29 04/29/19 23 XR, foot, 3 or more view No observ ation record ed. [id number] [facility] [place] [address], [place], [address], 04/28/2022 10:57:02 Result Notes Documentation Provider Name and Address Organization Details Recorded Time Mri, Lumbar Spine, W/o Contrast : [facility] [address] [place] [address] Patient Name: AYAN WEI Sex: M : 1955 Location: [facility] Attending Physician: PIYUSH TOMLIN Ordering Physician: PIYUSH TOMLIN Exam Date: 09/21/2020 8:35 AM Exam Name: MRI L SPINE WO Admitting Diagnosis(es): RADIOLOGY REPORT - FINAL EXAM: MRI L SPINE WO HISTORY: radiculopathy COMPARISON: None. TECHNIQUE: Multiplanar multisequence non-contrast images of lumbar spine are reviewed. FINDINGS: Vertebral bodies: Multiple benign hemangiomas are noted scattered throughout the lumbar spine. Conus medullaris: Terminates normally Disc spaces: Generally preserved. A mild anterior extradural defect is seen Page 1 of 3 [facility] Patient Name: AYAN WEI Sex: M : 1955 Exam Date: 09/21/2020 8:35 AM Exam Name: MRI L SPINE WO Admitting Diagnosis(es): at L4-L5 and T11-T12 Paravertebral soft tissues: Unremarkable Vasculature: Unremarkable T11-T12: A left paracentral disc protrusion is noted which causes anterior thecal sac effacement. T12-L1: Unremarkable L1-2: Unremarkable L2-3: Unremarkable L3-4: Unremarkable L4-5: A circumferential disc bulge is noted in conjunction with posterior facet and ligamentum flavum hypertrophy causing moderate to severe central canal stenosis without significant foraminal narrowing. L5-S1: Unremarkable IMPRESSION: Degenerative change as described above. This is most significant at L4-L5 causing moderate to severe central canal stenosis. Created and electronically signed by: Page 2 of 3 [facility] Patient Name: AYAN WEI Sex: M : 1955 Exam Date: 09/21/2020 8:35 AM Exam Name: MRI L SPINE WO Admitting Diagnosis(es): Jorge Hrastich, DO Signed Date: 09/21/2020 9:51 AM (CT) Dictated by: Jorge Oates DO (CT) (CT) Page 3 of 3 Not Available [facility] 04/23/2022 13:31:29 Problems Name Problem SNOMED Code Status Onset Date Resolution Date Notes Provider Name and Address Organization Details Recorded Time Lateral epicondyli tis 668200003 Active Not Available [facility] 3 13:29:36 Enthesopat hy of hip region 96445120 Active Not Available [facility] 3 13:29:36 Knee pain Active Not Available [facility] 3 13:29:36 Pain in limb 58946017 Active Not Available [facility] 3 13:29:36 Pain in right foot 6031456620171 07 Active 2022 ROCÍO Ragland, [employer] 3 10:10:04 Peroneal tendinitis of right lower limb 6303065016386 09 Active 2022 Yohan Castillo MD [address] [place] [address], [address] [facility] [employer] 3 10:57:14 Problem Notes None recorded. Procedures Surgical History Date Name Laterality Status Provider Name and Address Organization Details Recorded Time Back Surgeries completed ROCÍO Gerber [employer] 04/28/2022 10:09:32 Imaging Results None recorded. Procedure Notes None recorded. Medical Equipment None Reported. Allergies Allergen ID Allergen Name Allergen Category Reaction Reaction Severity Criticality Documentation Date Start Date Code Code System Note Provider Name and Address Organization Details Recorded Time 12805 Biaxin medicatio n Not available Not available Not available 04/23/2022 9 RxNorm Not Available [facility] 3 13:31:26 Medications Name Sig Start Date Stop Date Status Note LastModified by Organization Details LastModified Time amoxicillin 500 mg capsule 09/19 completed Not Available Not Available Not Available atorvastati n 40 mg tablet 10/01 completed Not Available Not Available Not Available doxycycline hyclate 100 mg capsule 09/19 completed Not Available Not Available Not Available clindamycin HCl 300 mg capsule 09/19 completed Not Available Not Available Not Available azithromyci n 250 mg tablet 09/19 completed Not Available Not Available Not Available metoprolol succinate ER 50 mg tablet,exte nded release 24 hr active Not Available Not Available Not Available hydrocodone 5 mg-acetamin ophen 325 mg tablet 09/19 completed Not Available Not Available Not Available Ativan 1 mg tablet TAKE 1 TABLET PO 30MIN BEFORE MRI MAY REPEAT NEEDED 04/28 completed Not Available Not Available Not Available metoprolol succinate ER 200 mg tablet,exte nded release 24 hr 09/19 completed Not Available Not Available Not Available metoprolol succinate ER 100 mg tablet,exte nded release 24 hr 04/28 completed Not Available Not Available Not Available prednisone 5 mg tablet 09/19 completed Not Available Not Available Not Available Advair Diskus 100 mcg-50 mcg/dose powder for inhalation INHALE 1 PUFF BY MOUTH EVERY 12 HOURS 04/28 completed Not Available Not Available Not Available peg-electro lyte solution 420 gram oral solution TAKE 240ML BY MOUTH EVERY 10 MINUTES DIRECTED 04/28 completed Not Available Not Available Not Available aspirin 81 mg tablet,edward yed release Take 1 tablet every day by oral route. active Not Available Not Available No t Available tramadol 50 mg tablet TAKE 1 TABLET BY MOUTH EVERY 4 TO 6 HOURS FOR 7 DAYS NEEDED 04/28 completed Not Available Not Available Not Available sildenafil 100 mg tablet TAKE 1 TABLET BY MOUTH ONCE DAILY active Not Available Not Available No t Available triamcinolo ne acetonide 0.1 % topical cream 09/19 completed Not Available Not Available Not Available cephalexin 500 mg capsule 09/19 completed Not Available Not Available Not Available flecainide 50 mg tablet active Not Available Not Available Not Available metoprolol tartrate 50 mg tablet 09/19 completed Not Available Not Available Not Available sertraline 25 mg tablet TAKE 1 TABLET BY MOUTH DAILY 10/01 completed Not Available Not Available Not Available diclofenac sodium 75 mg tablet,edward yed release TAKE 1 TABLET BY MOUTH TWICE DAILY active Not Available Not Available No t Available methylpredn isolone 4 mg tablets in a dose pack FOLLOW PACKAGE DIRECTION S 04/28 completed Not Available Not Available Not Available amoxicillin 500 mg-potassevau m clavulanate 125 mg tablet 09/19 completed Not Available Not Available Not Available clindamycin phosphate 1 % topical solution 09/19 completed Not Available Not Available Not Available azithromyci n 500 mg tablet 09/19 completed Not Available Not Available Not Available olmesartan 20 mg-hydrochl orothiazide 12.5 mg tablet TAKE 1 TABLET BY MOUTH DAILY active Not Available Not Available No t Available rosuvastati n 20 mg tablet 04/28 completed Not Available Not Available Not Available duloxetine 30 mg capsule,del ayed release TAKE 1 CAPSULE BY MOUTH DAILY 04/28 completed Not Available Not Available Not Available metronidazo le 1 % topical gel 09/19 completed Not Available Not Available Not Available chlorhexidi ne gluconate 0.12 % mouthwash 09/19 completed Not Available Not Available Not Available Xarelto 20 mg tablet 04/28 completed Not Available Not Available Not Available Vicodin ES 7.5 mg-300 mg tablet 09/19 completed Not Available Not Available Not Available cefixime 400 mg capsule TAKE 1 CAPSULE BY MOUTH DAILY FOR 10 DAYS 04/28 completed Not Available Not Available Not Available Flulaval Quad 2886-7661 60 mcg (15 mcg x 4)/0.5 mL IM suspension 09/19 completed Not Available Not Available Not Available Fluvirin 9585-7960 45 mcg (15 mcg x 3)/0.5 mL intramuscul ar suspension 09/19 completed Not Available Not Available Not Available Afluria Quad 9075-6929 (PF) 60 mcg (15 mcg x 4)/0.5 mL IM syringe 09/19 completed Not Available Not Available Not Available ID NOW COVID-19 Test Kit ADMINISTE R TEST DIRECTED 04/28 completed Not Available Not Available Not Available COVID-19 test specimen collection DIRECTED 04/28 completed Not Available Not Available Not Available Vitals Date Recorded Body height Body mass index (BMI) Body weight Provider Name and Address Organization Details Last Updated DateTime 04/28/2022 180.34 cm 30.7 kg/m2 45796.32 g ROCÍO Ragland [place] [facility] [place] [employer] [facility] 04/28/2022 10:08:01 Date Recorded Body mass index (BMI) Body height Body weight Provider Name and Address Organization Details Last Updated DateTime 09/19/2020 34.1 kg/m2 172.72 cm 504446.69 g Not Available [facility] 04/23/2022 13:29:22 Date Recorded Body height Provider Name an d Address Organization Details Last Updated DateTime 10/01/2020 172.72 cm Not Available [facility] 13:29:22 Social History None recorded. Functional Status Question Answer Note LastModified by Organizat ion Details LastModified Time What is your level of alcohol consumption? None [id number] Information not available 04/23/2022 Mental Status None recorded. Family History Relationship Description Onset Age of this Age Resolved Age Notes LastModified by Organization Details LastModified Time Father Family history of malignant neoplasm [id number] Not available 04/23/2022 13:29:19 Mother Family history of malignant neoplasm [id number] Not available 04/23/2022 13:29:19 Medical History Condition Response BLINDNESS N KIDNEY STONES N MRSA N CARPAL TUNNEL SYNDROME N LUNG DISEASE/DISORDER N HISTORY OF DRUG ABUSE N RADIATION / CHEMOTHERAPY N COPD N SPORTS INJURY N ANKLE PAIN N BLOOD DISEASES N SCHIZOPHRENIA N SHINGLES N BOWEL PROBLEMS N SHOULDER PAIN N DEPRESSION (INCLUDING POST ) N STROKE/TIA N KNEE PAIN N ULCERS N BENIGN PROSTATIC HYPERPLASIA N OBESITY N GERD/NAUSEA N ANEURYSM N URINARY/BLADDER/KIDNEY PROBLEMS N CORONARY ARTERY DISEASE (CAD) N ADDICTION CONCERNS N USE OF BLOOD THINNERS Y SKIN PROBLEMS Y EMPHYSEMA N MUSCLE,JOINT OR BONE PROBLEMS N DVT N STOMACH ULCERS N BLOOD CLOTS N USE OF NSAIDS N CONCUSSION OR SPINAL TRAUMA N NEUROPATHY N AIDS/HIV N FRACTURES N ELBOW PAIN N HYPERTENSION N TOURETTE'S N ANXIETY DISORDER N Metal allergy N BLOOD TRANSFUSION N ANEMIA/BLOOD DISORDER N BIPOLAR DISORDER N BRONCHITIS N OSTEOARTHRITIS N TUBERCULOSIS N FOOT PROBLEM N HEART VALVE DISORDERS N ALLERGIES/HAYFEVER N SOFT TISSUE INJURY N INFECTIOUS DISEASE N HEART ARRHYTHMIA N INSOMNIA N RHEUMATOID ARTHRITIS N HIGH CHOLESTEROL / HYPERLIPIDEMIA N EDEMA N CHRONIC PAIN SYNDROME N CAROTID BLOCKAGE N BACK / NECK PROBLEMS N HAVE YOU BEEN HOSPITALIZED OR SEEN IN [facility] IN THE PAST YEAR ? N BURSITIS N HERNIATED DISC N DIALYSIS N FIBROMYALGIA N OSTEOPOROSIS N ARTHRITIS N NO SIGNIFICANT PAST MEDICAL HISTORY N PERIPHERAL NEUROPATHY N DIABETES, TYPE N HEARTBURN / REFLUX N HEPATITIS / LIVER DISEASE N GOUT N SLEEP DISORDER N ALZHEIMER'S DISEASE N HERPES N SEIZURES/EPILEPSY N HEADACHES/MIGRAINES N VASCULAR DISEASE N HIP PAIN N Blood Disorder N DIZZINESS N HEAD TRAUMA OR INJURY N HEART DISEASE/HEART PROBLEMS Y MULTIPLE SCLEROSIS N CARDIAC ARRHYTHMIA Y CANCER: SPECIFY Y ANESTHESIA COMPLICATIONS N ATRIAL FIBRILLATION N AUTOIMMUNE DISEASE N Past Encounters Encounter ID Performer Location Encounter Start Date Encounter Closed Date Diagnosis/Indication Diagnosis SNOMED-CT Code Diagnosis ICD10 Code Diagnosis Note [id number] Piyush Tomlin MD [facility] [address] [facility] [address] [place] [address] 09/19/2020 00:00:00 09/24/2020 12:37:33 [id number] Piyush Tomlin MD [facility] [address] [facility] [address] [place] [address] 10/01/2020 00:00:00 10/01/2020 18:05:59 [id number] Yohan Castillo MD [facility] [address] [facility] [address] [place] [address] 04/28/2022 09:36:48 04/28/2022 11:43:21 Pain in right foot 4290954572 71097 M79.671 Peroneal t endinitis of right lower limb 5820558562 59145 M76.71 Health Concerns Section Related Observation LastModified by Organization Detai ls LastModified Time None Recorded Concern Status LastModified by Organization Details LastModified Time None Recorded Advance Directives Directive None Recorded Payers Insurance Date Sequence Insurance Name Policy Number Policy Zhang Covered Member ID Zhang Member ID Guarantor Name 04/28/2022 1 [place] Ayan Wei [id number] Ayan Wei 04/28/2022 2 [place] [id number] Ayan Wei [id number] Ayan Wei 05/24/2022 1 [facility] (MEDICARE REPLACEMENT/A DVANTAGE - POS) [id number] Ayan Wei [id number] Ayan Wei Notes Date Note Type Note Provider Name and Address Organization Details Recorded Time 04/28/2022 text/html Patient presents injury right foot and ankle pain. 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 He was able to walk for a while without getting worse and not better. He is tender over the posterolateral aspect of the ankle and has pain to palpation there. Yohan Castillo MD [address] [place] [address], [place], [address], [place] [facility] [place] [employer] 04/28/2022 10:57:40
--- OUTSIDE RECORDS SUMMARY | 2024-09-01 11:10 | XMS_ITS | Encounter Summary ---
Author Organization [facility] Address [address] [place] [address] Care Team Providers Care Link Cutter Name Role Phone Alexander Donald MD Primary Care Provider [phone] Louis Mo MD Unavailable [phone] Edmond Baez MD Unavailable [phone] Encounter Details Date Type Department Care Team (Late st Contact Info) Description 03/20/2016 Orders Only Arrhythmia Center ProviderSruthi MD [address] [place], [place] [id number] Social History Tobacco Use Types Packs/Day Years Used Date Smoking Tobacco: Never Alcohol Use Standard Drinks/Week Comments Yes 0 (1 standard drink = 0.6 oz pur e alcohol) Sex and Gender Information Value Date Recorded Sex Assigned at Not on file 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 Historical Provider [facility] CODEY ZHAO Final Result documented in this encounter Visit Diagnoses Not on filedocumented in this encounter Care Teams Link Cutter Relationship Specialty Start Date End Date Alexander Donald MD [address] [facility] [address] [place] [address] PCP - General 03/20/16 Louis Mo MD [address] [address] Radiation Oncologist Radiation Oncology 08/29/19 Edmond Baez MD [address] [address] Radiation Oncologist Radiation Oncology 06/12/21 documented as of this encounter
--- OUTSIDE RECORDS SUMMARY | 2024-09-01 11:10 | XMS_ITS ---
Author Organization [facility] Address [facility] [place] [address] Care Team Providers Care Radiology Services Manager Name Role Phone Alexander Donald Primary Care Provider [phone] Active Problems Problem Noted Date Diagnosed Date [...] of right tibial plateau, initial encounter 02/16/2024 shelter current use of antiarrhythmic drug Weakness 08/22/2020 Squamous cell carcinoma of skin of left cheek Enthesopathy of hip region 05/18/2019 Knee pain 05/18/2019 Lateral epicondylitis 05/18/2019 Pain in limb 05/18/2019 Ganglion cyst of volar aspect of right wrist 01/2020 Overview (06/28/2024): Added automatically from request for surgery [id number] Anticoagulation management encounter 01/26/2018 History of transient cerebral ischemia 5 Overview (06/28/2024): History of TIA (transient ischemic attack) Hypertension 04/12/2014 Overview (06/28/2024): HTN (hypertension) Paroxysmal atrial fibrillation 04/12/2014 Overview (06/28/2024): PAF (paroxysmal atrial fibrillation) Family history of other specified conditions 02/1959 Current Treatment and Therapy Plans No current plan information found. Past Treatment and Therapy Plans No past plan information found. Lifetime Dose Tracking * Chemical Lifetime Dose Automatic Entry Manual Entr y Dose Length Product 4,028.9 mGy-cm 4,028.9 mGy-cm 0 mG y-cm Resolved Problems Problem Noted Date Diagnosed Date Resolved Date Finger laceration, initial encounter 10/06/2018 02/18/2024
== END 2024-09-01 11:07 | disposition home or self-care (01) ==
PROVIDERS: PCP Nurse Practitioner; Visit Provider Internal Medicine
DX: R19.7 Diarrhea, unspecified (principal)
CPT/HCPCS: 87045; 87046; 87427; 87493

== ENCOUNTER 2024-10-17 13:15 | Outpatient (CLI) | payer MEDICARE, SELFPAY ==
--- OUTSIDE RECORDS SUMMARY | 2021-01-21 06:00 | XMS_ITS | Continuity of Care Document ---
Author Organization [facility] Address [address] [place] [address] Phone Care Team Providers Care Spectacle Truer Name Role Phone Jimenez Wlalace MD Unavailable Unavailable Procedures Procedure Date INJ SPINE LUM/SAC W/ IMAGING GUIDANCE No SURGICAL TRAY LOW OSMOLAR CONTRAST (200 TO 299 MG IODI NE) DEPO-MEDROL 80MG INJ SPINE LUM/SAC W/ IMAGING GUIDANCE Se SURGICAL TRAY LOW OSMOLAR CONTRAST (200 TO 299 MG IODI NE) DEPO-MEDROL 80MG Advance Directives Directive Yes / No Effective Date File Name No Information Encounters Encounter Description Practice Location Reason(s) For Visit Diagnoses Date Provider Providers Copied on Encounter [facility], [address], [place], [place], [address], tel:[phone] [facility] No Information Rodrigo Gaona. [address], [place], [address], [place]. tel:[phone] Referring Provider: Aureliano Hansen DO, [address], [place], [address]. tel:[phone] [facility], [address], [place], [place], [address], tel:[phone] [facility] No Information Jake Pollard. [address], [place], [address], [place]. tel:[phone] Referring Provider: Aureliano Hansen DO, [address], [place], [address]. tel:[phone] Family History Family Member Type Diagnosis Age At Onset No Information Payers Payer name Insurance type Covered democrat ID Authoriza tilevi(s) MEDICARE [id number] [facility] ACCESS [id number] Social History Type Description Quantity Date Captured Comments Sex Male Smoking Status No Information Chief Complaint And Reason For Visit No Information Reason For Referral Reason For Referral No Information History Of Present Illness Encounter Date Complaint History Of Prese nt Illness No Information Functional Status Date Functional Assessmen t No Information Instructions Date Instruction Additional Infor mation No Information Assessments Type Assessment Date No Information Patient Care Teams Name Effective Dates (start - stop) Status Members No Information
--- OUTSIDE RECORDS SUMMARY | 2024-10-17 13:22 | XMS_ITS ---
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
--- OUTSIDE RECORDS SUMMARY | 2024-10-17 13:22 | XMS_ITS | Encounter Summary ---
Author Organization [facility] Address [address] [place] [address] Care Team Providers Care Hardwood Sawyer Name Role Phone Alexander Donald MD Primary Care Provider [phone] Louis Mo MD Unavailable [phone] Edmond Baez MD Unavailable [phone] Encounter Details Date Type Department Care Team (Late st Contact Info) Description 03/20/2016 Orders Only Arrhythmia Center ProviderSruthi MD [address] [place], [place] [id number] Social History Tobacco Use Types Packs/Day Years Used Date Smoking Tobacco: Never Alcohol Use Standard Drinks/Week Comments Yes 0 (1 standard drink = 0.6 oz pur e alcohol) Sex and Gender Information Value Date Recorded Sex Assigned at Not on file Legal Sex Male 3:55 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
--- OUTSIDE RECORDS SUMMARY | 2024-10-17 13:22 | XMS_ITS ---
Author Organization [facility] [address] Address [address] [place] [address] Care Team Providers Care Cause Analyst Name Role Phone Alexander Donald MD Primary Care Provider [phone] Edmond Baez MD Unavailable [phone] Active Problems Problem Noted Date Diagnosed Date correction current use of antiarrhythmic drug Assessment & Plan (04/10/2021 2:24 PM CAREER ADVISOR): 12-lead ECG today does not demonstrate any [...] (04/06/2019): Added automatically from request for surgery [id number] Finger laceration, initial encounter 10/06/2018 Ventricular ectopy 01/26/2018 Assessment & Plan (01/26/2018 3:35 PM CAREER ADVISOR): The patient also appears to have symptomatic ventricular ectopy, as recorded by his home device. This arrhythmia would also respond to antiarrhythmic drug therapy. We will arrange appropriate follow-up after the results of the patient's echocardiogram. Anticoagulation management encounter 01/26/2018 Assessment & Plan (04/10/2021 2:24 PM CAREER ADVISOR): The patient has a [id number] score of 4 (annualized risk of stroke 4 %). I have therefore recommended continued anticoagulation for thromboprophylaxis. The patient will follow-up with me in 12 months for an office visit and twelve- lead ECG. Assessment & Plan (01/26/2018 3:35 PM CAREER ADVISOR): The patient has a [id number]-[id number] score of 4 (annualized risk of stroke 4.0 %). I have therefore recommended that he remain anticoagulated for thromboprophylaxis. Paroxysmal atrial fibrillation 04/12/2014 Overview (05/29/2016): PAF (paroxysmal atrial fibrillation) Assessment & Plan (04/07/2022 5:22 PM CAREER ADVISOR): Symptomatic paroxysmal atrial fibrillation, presently managed with [...] monitor for toxicity. The patient has a [id number] score of 4 (annualized risk of stroke 4%). I have therefore recommended continued anticoagulation for thromboprophylaxis. The patient will follow-up with me in 12 months for an office visit and twelve- lead ECG. Assessment & Plan (04/10/2021 2:23 PM CAREER ADVISOR): Paroxysmal atrial fibrillation, symptomatic. He is doing well with antiarrhythmic drug therapy with flecainide. Assessment & Plan (01/26/2018 3:33 PM CAREER ADVISOR): The patient has symptomatic paroxysmal atrial fibrillation. [...] found. Radiation Treatments * Course C1 L [facility] 201909/29/2019 - 11/14/2019 Treatment Period Energy Fraction Dose Fractions Total Dose Plans [facility] - 11/14/2019 200 30 / 6,000 Reference Points Delivered [facility] DPV 09/29/2019 - 11/14/2019 6,000
--- OUTSIDE RECORDS SUMMARY | 2024-10-17 13:22 | XMS_ITS | Clinical Summary ---
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 This arrhythmia would also respond to antiarrhythmic drug therapy. We will arrange appropriate follow-up after the results of the patient's echocardiogram. Anticoagulation management encounter 01/26/2018 Assessment & Plan (04/10/2021 2:24 PM SHELLFISH SORTER): The patient has a [id number] score of 4 (annualized risk of stroke 4 %). I have therefore recommended continued anticoagulation for thromboprophylaxis. The patient will follow-up with me in 12 months for an office visit and twelve- lead ECG. Assessment & Plan (01/26/2018 3:35 PM SHELLFISH SORTER): The patient has a [id number] score of 4 (annualized risk of stroke 4.0 %). I have therefore recommended that he remain anticoagulated for thromboprophylaxis. Paroxysmal atrial fibrillation 04/12/2014 Overview (05/29/2016): PAF (paroxysmal atrial fibrillation) Assessment & Plan (04/07/2022 5:22 PM SHELLFISH SORTER): Symptomatic paroxysmal atrial fibrillation, presently managed with [...] monitor for toxicity. The patient has a [id number] score of 4 (annualized risk of stroke 4%). I have therefore recommended continued anticoagulation for thromboprophylaxis. The patient will follow-up with me in 12 months for an office visit and twelve- lead ECG. Assessment & Plan (04/10/2021 2:23 PM SHELLFISH SORTER): Paroxysmal atrial fibrillation, symptomatic. He is doing well with antiarrhythmic drug therapy with flecainide. Assessment & Plan (01/26/2018 3:33 PM SHELLFISH SORTER): The patient has symptomatic paroxysmal atrial fibrillation. [...] Atrial fibrillation (HCC) Dr. Chu - in [place], [place] last saw Feb 2019 TIA (transient [...] on file Legal Sex Male 3:55 PM SHELLFISH SORTER Gender Identity Not on file Sexual Orientation Not on file Obstetrics History Last Filed Vital Signs Vital Sign Reading Time Taken Comments Blood Pressure 132/70 02/11/2023 9:07 AM SHELLFISH SORTER Pulse 64 02/11/2023 9:07 AM SHELLFISH SORTER Temperature 37.4 C (99.3 F) 08/22/2020 10:09 AM CDT Respiratory Rate 18 04/03/2022 12:56 PM SHELLFISH SORTER Oxygen Saturation 94% 02/11/2023 9:07 AM SHELLFISH SORTER Inhaled Oxygen Concentration - - Weight 104.8 kg (231 lb) 02/11/2023 9:07 AM SHELLFISH SORTER Height 180.3 cm (5' 11) 02/11/2023 9:07 AM SHELLFISH SORTER Body Mass Index 32.22 02/11/2023 9:07 AM SHELLFISH SORTER Plan of Treatment Health Maintenance Due Date [...] (A AA) Screen Completed 02/21/2024, 02/16/2024 Insurance [facility] Address: [address] [address] [facility] Address: [facility] [address] [place] [address] [place] [address] Care Teams Steel Rule Die Maker Relationship Specialty Start Date End Date Alexander Donald MD [address] [facility] [address] [place], [place] [id number] PCP - General 03/20/16 Edmond Baez MD [address] [facility] [address] [place] [address] Radiation Oncologist Radiation Oncology 06/12/21
--- OUTSIDE RECORDS SUMMARY | 2024-10-17 13:22 | XMS_ITS | Clinical Summary ---
Author Organization [facility] Address [address] [place] [address] Care Team Providers Care Poultry Barn Manager Name Role Phone Alexander Donald Primary Care Provider [phone] Source Comments [facility],non-owned Affiliates and Associated Physician Practices is amultiple site organization consisting of ambulatory clinics and hospital sitesin [place], [place] and [place]. This disclosure is being madepursuant to the Care Everywhere program and may not contain all information available regarding this patient. 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 Weakness 08/22/2020 Squamous cell carcinoma of skin of left cheek Enthesopathy of hip region 05/18/2019 Knee pain 05/18/2019 Lateral epicondylitis 05/18/2019 Pain in limb 05/18/2019 Ganglion cyst of volar aspect of right wrist 01/2020 Overview (06/28/2024): Added automatically from request for surgery [id number] Anticoagulation management encounter 01/26/2018 History of transient cerebral ischemia 5 Overview (06/28/2024): History of TIA (transient ischemic attack) Hypertension 04/12/2014 Overview (06/28/2024): HTN (hypertension) Paroxysmal atrial fibrillation 04/12/2014 Overview (06/28/2024): PAF (paroxysmal atrial fibrillation) Family history of other specified conditions 02/1961 Resolved Problems Problem Noted Date Diagnosed Date Resolved Date Finger laceration, initial encounter 10/06/2018 02/18/2024 Encounters Date Type Department Care Team Description 10/10/2024 Telephone [facility] - Neurology [address] [place] [phone] Zana Chavis MD Referral 10/10/2024 Telephone [facility] - Neurology [address] [place] [phone] Zana Chavis MD Referral 09/26/2024 Telephone [facility] - Neurology [address] [place] [phone] Zana Chavis MD General 09/23/2024 Telephone [facility] - Neurology [address] [place] [phone] Zana Chavis MD General 08/29/2024 10:01 AM CDT - 08/29/2024 11:59 PM CDT Hospital Encounter [facility] DIAGNOSTIC RAD [facility] [address] [place] [address]. [place] [address] Cleopatra Dietz MD Discharge Disposition: Home or Self Care 08/29/2024 10:00 AM CDT Office Visit [facility] - Orthopedics [address] [place] [phone] None, Physician Cleopatra Dietz MD Closed fracture of right tibial plateau with routine healing, subsequent encounter (Primary Dx) 08/29/2024 Travel 08/22/2024 11:17 AM CDT - 08/22/2024 11:59 PM CDT Hospital Encounter [facility] MRI [address] [place] [address] Zana Chavis MD Discharge Disposition: Home or Self Care 08/22/2024 10:59 AM CDT - 08/22/2024 11:16 AM CDT Hospital Encounter [facility] EEG/EMG [address] [place] [address] Zana Chavis MD Discharge Disposition: Home or Self Care 08/22/2024 Travel 08/18/2024 Orders Only [facility] - Orthopedics [address] [place] [phone] Cleopatra Dietz MD Closed fracture of right tibial plateau with routine healing, subsequent encounter 08/09/2024 Travel from Last 3 Months Immunizations Immunization Administration [...] Recorded Patient Health Questionnaire-2 Score 0 08/29/2024 [facility] - Occupational Stress [...] any time in the past 12 m [facility], were you homeless or living in a alf (including now)? No 02/17/2024 Sex and Gender Information Value Date Recorded Sex Assigned at Not on file Legal Sex Male 5:22 PM FOOD CHECKER Gender Identity Not on file Sexual Orientation Not on file Last Filed Vital Signs Vital Sign Reading Time Taken Comments Blood Pressure 123/82 06/28/2024 8:17 AM CDT Pulse 68 06/28/2024 8:17 AM CDT Temperature 36.8 C (98.2 F) 03/28/2024 11:55 AM FOOD CHECKER Respiratory Rate 18 03/28/2024 11:55 AM FOOD CHECKER Oxygen Saturation 94% 06/28/2024 8:17 AM CDT Inhaled Oxygen Concentration - - Weight 104.3 kg (230 lb) 08/29/2024 10:27 AM CDT Height 180.3 cm (5' 11) 08/29/2024 10:27 AM CDT Body Mass Index 32.08 08/29/2024 10:27 AM CDT Plan of Treatment Upcoming Encounters Date Type Department Care Team (Late st Contact Info) Description 02/06/2025 10:00 AM FOOD CHECKER Office Visit [facility] - Orthopedics [facility] [facility], [facility] [place] [address] None, Physician Any Neri, UNIT EDUCATOR-COMMUNITY SERVICE ORGANIZATION DIRECTOR [address] [place] [address] Health Maintenance Due Date Last Done Comments [...] - PCV) 11/11/2020 11/12/2019 COVID-19 VACCINE ( - season) 2023 01/07/2023, 02/01/2022, 01/15/2021, Additional history [...] conserve energy Medical Devices Implanted Type Area Fluid Power Mechanic Device Identifier Shelf Expiration Date Model / Serial / Lot Screw 5mm 200mm Dist Rds Blnt Troc Pnt Implanted:Qty: 4 on 02/17/2024 by Silvino Cárdenas DO at [facility] Synthes Usa 294.56 / / Graft Bone Canc 4-9.5mm 15cc Frzdr [facility] - [id number] Implanted:Qty: 1 on 02/29/2024 by Oniel Caro MD at [facility] Right: Tibia [employer] 10/11/2028 [id number] / [id number] / [id number] Screw 4mm 6mm 80mm 2.5mm Ft Slf-Tap Sm Implanted:Qty: 1 on 02/29/2024 by Oniel Caro MD at [facility] Right: Tibia [employer] Usa 206.480 / / Screw 4mm 6mm 80mm 2.5mm Ft Slf-Tap Sm Implanted:Qty: 1 on 02/29/2024 by Oniel Caro MD at [facility] Right: Tibia Synthes Trauma 206.485 / / 2.4mm X 80 Cortical Implanted:Qty: 2 on 02/29/2024 by Oniel Caro MD at [facility] Right: Tibia [employer]ynthe[employer] Trauma 02.210.980 / / 2.4mm X 75mm Cortical Implanted:Qty: 1 on 02/29/2024 by Oniel Caro MD at [facility] Right: Tibia [employer]ynthes Trauma 02.210.975 / / Screw 3.5mm 85mm T15 Slf-Tap Lck Va Implanted:Qty: 2 on 02/29/2024 by Oniel Caro MD at [facility] Right: Tibia [employer] Usa 02.127.185 / / Screw 3.5mm 80mm T15 Slf-Tap Lck Va Implanted:Qty: 2 on 02/29/2024 by Oniel Caro MD at [facility] Right: Tibia [employer] Usa 02.127.180 / / Screw 3.5mm 6mm 50mm Slf-Tap Sm Hex Sckt Implanted:Qty: 1 on 02/29/2024 by Cleopatra Dietz MD at [facility] Right: Tibia [employer] Usa 204.850 / / Screw 3.5mm 6mm 60mm Slf-Tap Sm Hex Sckt Implanted:Qty: 1 on 02/29/2024 by Cleopatra Dietz MD at [facility] Right: Tibia [employer] Usa 204.860 / / Graft Bone Canc 60ml Frzdr Chp 4-9.5mm - [id number] Implanted:Qty: 1 on 02/29/2024 by Cleopatra Dietz MD at [facility] Right: Tibia [employer] 09/19/2027 [id number] / [id number] / [id number] 6 Hole Right Medial Prox Tib Plate Implanted:Qty: 1 on 02/29/2024 by Oniel Caro MD at [facility] Right: Tibia [employer] Trauma 239.956S / / Screw 3.5mm 6mm 34mm 2.5mm Ft Slf-Tap Implanted:Qty: 1 on 02/29/2024 by Oniel Caro MD at [facility] Right: Tibia [employer] Usa 204.834 / / 2.0 Volt (Tm) Adaption Plate Implanted:Qty: 1 on 02/29/2024 by Oniel Caro MD at [facility] Right: Tibia 02.420.040 / / Plate Strg 84x10.1x3.5mm Ss 3.5mm Scr Sm Implanted:Qty: 1 on 02/29/2024 by Cleopatra Dietz MD at [facility] Right: Tibia [employer] Usa 245.061 / / Screw 3.5mm 6mm 44mm 2.5mm Ft Slf-Tap Implanted:Qty: 1 on 02/29/2024 by Cleopatra Dietz MD at [facility] Right: Tibia [employer] Usa 204.844 / / Screw 3.5mm 6mm 46mm 2.5mm Ft Slf-Tap Implanted:Qty: 1 on 02/29/2024 by Cleopatra Dietz MD at [facility] Right: Tibia [employer] Usa 204.846 / / Screw 3.5mm 6mm 55mm 2.5mm Ft Slf-Tap Implanted:Qty: 1 on 02/29/2024 by Cleopatra Dietz MD at [facility] Right: Tibia [employer] Usa 204.855 / / Explanted Type Area Fluid Power Mechanic Device Identifier Shelf Expiration Date Model / Serial / Lot 3.5mm X 90mm Va Locking Explanted:Qty: 1 on 02/29/2024 by Cleopatra Dietz MD at [facility] Right: Tibia [employer]ynthes Trauma 02.127.190 / / Screw 3.5mm 6mm 70mm Ft Rivera Slf-Tap Sm Explanted:Qty: 1 on 02/29/2024 by Oniel Caro MD at [facility] Right: Tibia [employer] Usa 204.870 / / Screw Extfix 170mm 5mm Schnz Xlng Plvc Explanted:Qty: 1 on 02/29/2024 by Oniel Caro MD at [facility] Right: Tibia [employer] Usa 294.55 / / Screw 5mm 200mm Dist Rds Blnt Troc Pnt Explanted:Qty: 1 on 02/29/2024 by Oniel Caro MD at [facility] Right: Tibia [employer] Usa 294.56 / / Gw Orth 200mm 1.6mm Lcp Perc Ss Drl Tip Explanted:Qty: 5 on 02/29/2024 by Oniel Caro MD at [facility] Right: Tibia [employer] Usa 02.113.001 / / Procedures Procedure Name Priority Date/Time Associated Diagnosis Comments XR KNEE RIGHT 3VW Routine 08/29/2024 10: 17 AM CDT Closed fracture of right tibial plateau with routine healing, subsequent encounter MRI LUMBAR SPINE WO CONTRAST Routine 08/22/2024 11:59 AM CDT Closed fracture of right tibial plateau, initial encounter Foot drop, right BASIC METABOLIC PANEL (CALCIUM TOTAL) AM Draw 03/08/2024 2:20 AM FOOD CHECKER HEPATITIS C AB SCREEN RFLX NAAT QUANT STAT 09/27/2018 4:32 PM CDT from Last 3 Months or Most Recently Relevant to Health Maintenance Results * XR Knee Right 3Vw (08/29/2024 10:17 AM CDT) Anatomical Region Laterality Modality Lower Extremity Radiographic [...] Rafael Valle MD on 08/29/2024 10:38 AM Cleopatra Dietz MD DIAGNOSTIC IMAGING ORDERABLES Fi [...] in the presence of Jesus Reyes MD, (residential plumber). > Interpreting Provider: Enrique Devine MD on [...] in the presence of Jesus Reyes MD, (residential plumber). > Interpreting Provider: Enrique Devine MD on 08/25/2024 2:10 PM Zana Chavis MD MR ORDERABLES Final Result * BASIC METABOLIC PANEL (CALCIUM TOTAL) (03/08/2024 2:20 AM [facility]) BUN 13 7 - 26 mg/dL 03/08/2024 3:[address] [facility] Creatinine 0.86 0.71 - 1.16 mg/dL 03/08/2024 3:[address] [facility] Sodium 138 136 - 145 mmol/L 03/08/2024 3:43 AM [facility] Potassium 4.1 3.5 - 4.5 mmol/L 03/08/2024 3:43 AM [facility] Chloride 101 98 - 107 mmol/L 03/08/2024 3:43 AM [facility] CO2 28 22 - 29 mmol/L 03/08/2024 3:43 AM [facility] Glucose 92 70 - 99 mg/dL 03/08/2024 3:43 AM [facility] Calcium 8.6 8.4 - 10.2 mg/dL 03/08/2024 3:43 AM [facility] Anion Gap 9 6 - 16 03/08/2024 3:43 AM [facility] BUN/Creatinine Ratio 15 7 - 23 03/08/2024 3:[address] [facility] Osmolality Calculated 286 275 - 295 mOsm/kg 03/08/2024 3:43 AM [facility] eGFR by CKD-EPI >90 >=90 mL/min/1.7 3 m2 03/08/2024 3:43 AM [facility] Blood BLOOD SPECIMEN / Unknown Lab Venipuncture / Unknown 03/08/2024 2:20 AM FOOD CHECKER 03/08/2024 3:15 AM FOOD CHECKER Elida Weston UNIT EDUCATOR-COMMUNITY SERVICE ORGANIZATION DIRECTOR LAB - CHEMISTRY ORDERABLE S Final Result [facility] [address] [place] [address], [facility] [phone] * HEPATITIS C AB SCREEN RFLX NAAT QUANT (09/27/2018 4:32 PM CDT) Hepatitis C Antibody Non-react joann Non-reac tive 09/27/2018 5:12 PM CDT [facility] Comment: Hepatitis C Antibody screen indicates no [...] 4:32 PM CDT 09/27/2018 4:32 PM CDT Result [facility] Nelson Ware MD LAB - CHEMISTRY ORDERABLES Final Result [facility] [address] [place] [address], [facility] [phone] from Last 3 Months or Most Recently Relevant to Health Maintenance Insurance [facility] MANAGED MEDICARE ADV * Guarantor: [id number] [facility] Account Type Relation to Patient Date of Phone Billing Address Workers Comp EMPLOYEE [address] [place] [address] 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
[2024-10-17 13:34] LABS: Hematocrit 41.9 % (42.0-52.0); Hemoglobin 13.8 g/dL (14.0-18.0); Mean Corpuscular HGB Conc 32.9 g/dl (32-36); Mean Corpuscular Hemoglobin 30.5 pg (26-34); Mean Corpuscular Volume 92.5 fl (80-100); Platelet Count Result 184 k/mm3 (150-375); Red Blood Count 4.53 M/mm3 (4.6-6.20); White Blood Count 8.0 K/mm3 (4.5-10.0)
[2024-10-17 13:59] LABS: Anion Gap 8 mmol/L (4-12); Blood Urea Nitrogen 28 mg/dL (9-20); Calcium 9.3 mg/dL (8.4-10.2); Carbon Dioxide 28 mmol/L (22-30); Chloride 100 mmol/L (98-107); Cholesterol 184 mg/dL (0-200); Estimated Glomerular Filt Rate > 60; Glucose 97 mg/dL (65-110); HDL Direct 37 mg/dL; Potassium 4.4 mmol/L (3.4-5.0); Sodium 136 mmol/L (137-145); Triglycerides 246 mg/dL (<150)
== END 2024-10-17 13:16 | disposition home or self-care (01) ==
LOC: ANHLAB 13:17
PROVIDERS: PCP Internal Medicine; Visit Provider Internal Medicine Cardiovascular Disease
DX: E78.5 Hyperlipidemia, unspecified (principal); I10 Essential (primary) hypertension; I25.10 Atherosclerotic heart disease of native coronary artery without angina pectoris; R53.83 Other fatigue; Z86.73 Personal history of transient ischemic attack (TIA), and cerebral infarction without residual deficits
CPT/HCPCS: 36415; 80048; 80061; 85027

== ENCOUNTER 2024-11-02 14:18 | Outpatient (CLI) | payer MEDICARE, SELFPAY ==
--- NOTE | ~2024-11-02 | US_ITS ---
EXAMINATION:US venous doppler LE BI INDICATION:Localized edema of the right leg TECHNIQUE: Multiple grayscale, color flow and Doppler images of the right and left lower extremity deep venous systems were obtained and reviewed. COMPARISON:No prior studies for comparison. FINDINGS: The common femoral, superficial femoral and popliteal veins demonstrate normal respiratory variation, augmentation and compressibility. Color flow is also seen within the posterior tibial, peroneal, greater saphenous and profunda veins. IMPRESSION: 1: No lower extremity deep venous thrombosis. Reviewed, dictated and finalized at location O.
--- OUTSIDE RECORDS SUMMARY | 2024-11-02 14:55 | XMS_ITS ---
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 This arrhythmia would also respond to antiarrhythmic drug therapy. We will arrange appropriate follow-up after the results of the patient's echocardiogram. Anticoagulation management encounter 01/26/2018 Assessment & Plan (04/10/2021 2:24 PM CYBER LEGAL ADVISOR): The patient has a [id number] score of 4 (annualized risk of stroke 4 %). I have therefore recommended continued anticoagulation for thromboprophylaxis. The patient will follow-up with me in 12 months for an office visit and twelve- lead ECG. Assessment & Plan (01/26/2018 3:35 PM CYBER LEGAL ADVISOR): The patient has a [id number] score of 4 (annualized risk of stroke 4.0 %). I have therefore recommended that he remain anticoagulated for thromboprophylaxis. Paroxysmal atrial fibrillation 04/12/2014 Overview (05/29/2016): PAF (paroxysmal atrial fibrillation) Assessment & Plan (04/07/2022 5:22 PM CYBER LEGAL ADVISOR): Symptomatic paroxysmal atrial fibrillation, presently managed [...] monitor for toxicity. The patient has a [id number] score of 4 (annualized risk of stroke 4%). I have therefore recommended continued anticoagulation for thromboprophylaxis. The patient will follow-up with me in 12 months for an office visit and twelve- lead ECG. Assessment & Plan (04/10/2021 2:23 PM CYBER LEGAL ADVISOR): Paroxysmal atrial fibrillation, symptomatic. He is doing well with antiarrhythmic drug therapy with flecainide. Assessment & Plan (01/26/2018 3:33 PM CYBER LEGAL ADVISOR): The patient has symptomatic paroxysmal atrial [...] found. Radiation Treatments * Course C1 L [facility] 201909/29/2019 - 11/14/2019 Treatment Period Energy Fraction Dose Fractions Total Dose Plans [facility] - 11/14/2019 200 30 / 6,000 Reference Points Delivered CHE DPV 09/29/2019 - 11/14/2019 6,000
--- OUTSIDE RECORDS SUMMARY | 2024-11-02 14:55 | XMS_ITS | Clinical Summary ---
Author Organization [facility] [address] Address [address] [place] [address] Care Team Providers Care Agronomy Specialist Name Role Phone Alexander Donald MD Primary Care Provider [phone] Edmond Baez MD Unavailable [phone] Allergies Active Allergy Reactions Criticality Noted [...] Active Problems Problem Noted Date Diagnosed Date shelter current use of antiarrhythmic drug Assessment & Plan (04/10/2021 2:24 PM SENIOR FRONT END ENGINEER): 12-lead ECG today does not demonstrate any [...] (04/06/2019): Added automatically from request for surgery [id number] Finger laceration, initial encounter 10/06/2018 Ventricular ectopy 01/26/2018 Assessment & Plan (01/26/2018 3:35 PM SENIOR FRONT END ENGINEER): The patient also appears to have symptomatic ventricular ectopy, as recorded by his home device. This arrhythmia would also respond to antiarrhythmic drug therapy. We will arrange appropriate follow-up after the results of the patient's echocardiogram. Anticoagulation management encounter 01/26/2018 Assessment & Plan (04/10/2021 2:24 PM SENIOR FRONT END ENGINEER): The patient has a [id number]-HSEs score of 4 (annualized risk of stroke 4 %). I have therefore recommended continued anticoagulation for thromboprophylaxis. The patient will follow-up with me in 12 months for an office visit and twelve- lead ECG. Assessment & Plan (01/26/2018 3:35 PM SENIOR FRONT END ENGINEER): The patient has a HAF3VT7-TYUv score of 4 (annualized risk of stroke 4.0 %). I have therefore recommended that he remain anticoagulated for thromboprophylaxis. Paroxysmal atrial fibrillation 04/12/2014 Overview (05/29/2016): PAF (paroxysmal atrial fibrillation) Assessment & Plan (04/07/2022 5:22 PM SENIOR FRONT END ENGINEER): Symptomatic paroxysmal atrial fibrillation, presently managed with [...] monitor for toxicity. The patient has a [id number]-SXVr score of 4 (annualized risk of stroke 4%). I have therefore recommended continued anticoagulation for thromboprophylaxis. The patient will follow-up with me in 12 months for an office visit and twelve- lead ECG. Assessment & Plan (04/10/2021 2:23 PM SENIOR FRONT END ENGINEER): Paroxysmal atrial fibrillation, symptomatic. He is doing well with antiarrhythmic drug therapy with flecainide. Assessment & Plan (01/26/2018 3:33 PM SENIOR FRONT END ENGINEER): The patient has symptomatic paroxysmal atrial fibrillation. [...] Encounters Date Type Department Care Team Description 10/19/2024 Telephone [facility] Medicine Surgery [address] [place] [address] [place] [address] Lea De Jesus PT [facility] ACCEPTED from Last 3 Months Immunizations Immunization Administration [...] Atrial fibrillation (HCC) Dr. Chu - in [place], [place] last saw Feb 2019 TIA (transient [...] on file Legal Sex Male 3:55 PM SENIOR FRONT END ENGINEER Gender Identity Not on file Sexual Orientation Not on file Obstetrics History Last Filed Vital Signs Vital Sign Reading Time Taken Comments Blood Pressure 132/70 02/11/2023 9:07 AM SENIOR FRONT END ENGINEER Pulse 64 02/11/2023 9:07 AM SENIOR FRONT END ENGINEER Temperature 37.4 C (99.3 F) 08/22/2020 10:09 AM CDT Respiratory Rate 18 04/03/2022 12:56 PM SENIOR FRONT END ENGINEER Oxygen Saturation 94% 02/11/2023 9:07 AM SENIOR FRONT END ENGINEER Inhaled Oxygen Concentration - - Weight 104.8 kg (231 lb) 02/11/2023 9:07 AM SENIOR FRONT END ENGINEER Height 180.3 cm (5' 11) 02/11/2023 9:07 AM SENIOR FRONT END ENGINEER Body Mass Index 32.22 02/11/2023 9:07 AM SENIOR FRONT END ENGINEER Plan of Treatment Health Maintenance Due Date Last Done Comments Colon Cancer Screening-Colonoscopy 1955 Depression Screening 1955 Hepatitis C Screening 1955 Hepatitis B Screening 12/10/1971 Zoster Vaccine (1 of 2) 12/10/2003 Well Visit 65+ 2018 Fall Risk Assessment 05/05/2020 05/06/2019 Pneumococcal vaccine 65+ (2 of 2 - PCV) 11/11/2020 11/12/2019 Covid-19 Vaccine (4 - 2024-2 6 season) 2024 01/15/2021, 05/13/2020, 04/22/2020 Influenza Vaccine (#1) 2024 , 02/28/2019, 12/14/2017, Additional history exists DTaP/Tdap/Td Vaccine (3 - Td or Tdap) 02/15/2034 02/16/2024, 09/27/2018 Abdominal Aortic Aneurysm (A AA) Screen Completed 02/21/2024, 02/16/2024 Insurance [facility] MEDICARE ADVANTAGE Care Teams Agronomy Specialist Relationship Specialty Start Date End Date Alexander Donald MD [address] [place] [address] PCP - General 03/20/16 Edmond Baez MD [address] [place] [address] Radiation Oncologist Radiation Oncology 06/12/21
--- OUTSIDE RECORDS SUMMARY | 2024-11-02 14:55 | XMS_ITS | Clinical Summary ---
Author Organization [facility] Address [address] [place] [address] Care Team Providers Care Ultrasound Sonographer Name Role Phone Alexander Donald Primary Care Provider [phone] Source Comments [facility],non-owned Affiliates and Associated Physician Practices is amultiple site organization consisting of ambulatory clinics and hospital sitesin [place], [place], [place] and [place]. This disclosure is being madepursuant to the Care Everywhere program and may not contain all information available regarding this patient. Last updated 17.[facility] [employer] Allergies Active Allergy Reactions Criticality Noted Date [...] of right tibial plateau, initial encounter 02/16/2024 group home current use of antiarrhythmic drug Weakness 08/22/2020 Squamous cell carcinoma of skin of left cheek Enthesopathy of hip region 05/18/2019 Knee pain 05/18/2019 Lateral epicondylitis 05/18/2019 Pain in limb 05/18/2019 Ganglion cyst of volar aspect of right wrist 01/2020 Overview (06/28/2024): Added automatically from request for surgery [id number] Anticoagulation management encounter 01/26/2018 History of transient [...] 10/10/2024 Telephone [facility] - Neurology [address] [place] [phone] Zana Chavis MD Referral 10/10/2024 Telephone [facility] - Neurology [address] [place] [phone] Zana Chavis MD Referral 09/26/2024 Telephone [facility] - Neurology [address] [place] [phone] Zana Chavis MD General 09/23/2024 Telephone [facility] - Neurology [address] [place] [phone] Zana Chavis MD General 08/29/2024 10:01 AM CDT - 08/29/2024 11:59 PM CDT Hospital Encounter [facility] DIAGNOSTIC RAD [facility] [address] [place] [address]. [place] [address] Cleopatra Dietz MD Discharge Disposition: Home or Self Care 08/29/2024 10:00 AM CDT Office Visit [facility] - Orthopedics [address] [place] [phone] None, Physician Cleopatra Dietz MD Closed fracture of right tibial plateau with routine healing, subsequent encounter (Primary Dx) 08/29/2024 Travel 08/22/2024 11:17 AM CDT - 08/22/2024 11:59 PM CDT Hospital Encounter [facility] MRI [address] [place] [address] Zana Chavis MD Discharge Disposition: Home or Self Care 08/22/2024 10:59 AM CDT - 08/22/2024 11:16 AM CDT Hospital Encounter [facility] EEG/EMG [address] [place] [address] Zana Chavis MD Discharge Disposition: Home or Self Care 08/22/2024 Travel 08/18/2024 Orders Only [facility] - Orthopedics [address] [place] [phone] Cleopatra Dietz MD Closed fracture of right [...] Recorded Patient Health Questionnaire-2 Score 0 08/29/2024 [facility] - Occupational Stress [...] any time in the past 12 m [facility], were you homeless or living in a [facility] (including now)? No 02/17/2024 Sex and Gender Information Value Date Recorded Sex Assigned at Not on file Legal Sex Male 5:22 PM TOLL SERVICE OBSERVER Gender Identity Not on file Sexual Orientation Not on file Last Filed Vital Signs Vital Sign Reading Time Taken Comments Blood Pressure 123/82 06/28/2024 8:17 AM CDT Pulse 68 06/28/2024 8:17 AM CDT Temperature 36.8 C (98.2 F) 03/28/2024 11:55 AM TOLL SERVICE OBSERVER Respiratory Rate 18 03/28/2024 11:55 AM TOLL SERVICE OBSERVER Oxygen Saturation 94% 06/28/2024 8:17 AM CDT Inhaled Oxygen Concentration - - Weight 104.3 kg (230 lb) 08/29/2024 10:27 AM CDT Height 180.3 cm (5' 11) 08/29/2024 10:27 AM CDT Body Mass Index 32.08 08/29/2024 10:27 AM CDT Plan of Treatment Upcoming Encounters Date Type Department Care Team (Late st Contact Info) Description 11/15/2024 1:00 PM CDT Office Visit [facility] - Orthopedics [address] [place] [address], [facility] [place] [address] Yohan Vera MD [address] [place] [address] 02/06/2025 10:00 AM TOLL SERVICE OBSERVER Office Visit [facility] - Orthopedics [address] [facility], [facility] [place] [address] None, Physician Any Neri, STORE SHOPPER-PETROLEUM SUPPLY SPECIALIST [address] [place] [address] Health Maintenance Due Date Last Done Comments [...] (2 of 2 - PCV) 11/11/2020 11/12/2019 MEDICARE AWV CALENDAR YEAR 2024 COVID-19 VACCINE ( season) 2024 01/07/2023, 02/01/2022, 01/15/2021, Additional history exists INFLUENZA VACCINE (#1) 2024 3, 02/01/2022, 12/27/2020, [...] conserve energy Medical Devices Implanted Type Area Seater Grinder Device Identifier Shelf Expiration Date Model / Serial / Lot Screw 5mm 200mm Dist Rds Blnt Troc Pnt Implanted:Qty: 4 on 02/17/2024 by Silvino Cárdenas DO at [facility] Synthes Usa 294.56 / / Graft Bone Canc 4-9.5mm 15cc Frzdr [facility] - [id number] Implanted:Qty: 1 on 02/29/2024 by Oniel Caro MD at [facility] Right: Tibia [employer] 10/11/2028 [id number] / [id number] / [id number] Screw 4mm 6mm 80mm 2.5mm Ft Slf-Tap Sm Implanted:Qty: 1 on 02/29/2024 by Oniel Caro MD at [facility] Right: Tibia [employer] Usa 206.480 / / Screw 4mm 6mm 80mm 2.5mm Ft Slf-Tap Sm Implanted:Qty: 1 on 02/29/2024 by Oniel Caro MD at [facility] Right: Tibia [employer] Trauma 206.485 / / 2.4mm X 80 Cortical Implanted:Qty: 2 on 02/29/2024 by Oniel Caro MD at [facility] Right: Tibia [employer] Trauma 02.210.980 / / 2.4mm X 75mm Cortical Implanted:Qty: 1 on 02/29/2024 by Oniel Caro MD at [facility] Right: [employer]ia [employer] Trauma .210.975 / / Screw 3.5mm 85mm T15 Slf-Tap Lck Va Implanted:Qty: 2 on 02/29/2024 by Oniel Caro MD at [facility] Right: Tibia [employer]sa 02.127.185 / / Screw 3.5mm 80mm T15 Slf-Tap Lck Va Implanted:Qty: 2 on 02/29/2024 by Oniel Caro MD at [facility] Right: [employer] 02.127.180 / / Screw 3.5mm 6mm 50mm Slf-Tap Sm Hex Sckt Implanted:Qty: 1 on 02/29/2024 by Cleopatra Dietz MD at [facility] Right: [employer]sa 204.850 / / Screw 3.5mm 6mm 60mm Slf-Tap Sm Hex Sckt Implanted:Qty: 1 on 02/29/2024 by Cleopatra Dietz MD at [facility] Right: [employer]ia [employer] Usa 204.860 / / Graft Bone Canc 60ml Frzdr Chp 4-9.5mm - [id number] Implanted:Qty: 1 on 02/29/2024 by Cleopatra Dietz MD at [facility] Right: Tibia [employer] 09/19/2027 [id number] / [id number] / [id number] 6 Hole Right Medial Prox Tib Plate Implanted:Qty: 1 on 02/29/2024 by Oniel Caro MD at [facility] Right: Tibia [employer] Trauma 239.956S / / Screw 3.5mm 6mm 34mm 2.5mm Ft Slf-Tap Implanted:Qty: 1 on 02/29/2024 by Oniel Caro MD at [facility] Right: Tibia [employer] Usa 204.834 / / 2.0 Volt (Tm) Adaption Plate Implanted:Qty: 1 on 02/29/2024 by Oniel Caro MD at [facility] Right: Tibia 02.420.040 / / Plate Strg 84x10.1x3.5mm Ss 3.5mm Scr Sm Implanted:Qty: 1 on 02/29/2024 by Cleopatra Dietz MD at [facility] Right: Tibia [employer] Usa 245.061 / / Screw 3.5mm 6mm 44mm 2.5mm Ft Slf-Tap Implanted:Qty: 1 on 02/29/2024 by Cleopatra Dietz MD at [facility] Right: [employer]sa 204.844 / / Screw 3.5mm 6mm 46mm 2.5mm Ft Slf-Tap Implanted:Qty: 1 on 02/29/2024 by Cleopatra Dietz MD at [facility] Right: [employer]ia [employer]sa 204.846 / / Screw 3.5mm 6mm 55mm 2.5mm Ft Slf-Tap Implanted:Qty: 1 on 02/29/2024 by Cleopatra Dietz MD at [facility] Right: Tibia [employer] Usa 204.855 / / Explanted Type Area Seater Grinder Device Identifier Shelf Expiration Date Model / Serial / Lot 3.5mm X 90mm Va Locking Explanted:Qty: 1 on 02/29/2024 by Cleopatra Dietz MD at [facility] Right: Tibia [employer] Trauma 02.127.190 / / Screw 3.5mm 6mm 70mm Ft Rivera Slf-Tap Sm Explanted:Qty: 1 on 02/29/2024 by Oniel Caro MD at [facility] Right: Tibia [employer] Usa 204.870 / / Screw Extfix 170mm 5mm Schnz Xlng Plvc Explanted:Qty: 1 on 02/29/2024 by Oniel Caro MD at [facility] Right: Tibia [employer] Usa 294.55 / / Screw 5mm 200mm Dist Rds Blnt Troc Pnt Explanted:Qty: 1 on 02/29/2024 by Oniel Caro MD at [facility] Right: Tibia [employer] Usa 294.56 / / Gw Orth 200mm 1.6mm Lcp Perc Ss Drl Tip Explanted:Qty: 5 on 02/29/2024 by Oniel Caro MD at [facility] Right: Tibia [employer] Usa 02.113.001 [...] (CALCIUM TOTAL) AM Draw 03/08/2024 2:20 AM TOLL SERVICE OBSERVER HEPATITIS C AB SCREEN RFLX NAAT QUANT [...] normal. There is no effusion. Procedure Note Raafel Valle MD - 08/29/2024 PROCEDURE: XR KNEE [...] in the presence of Jesus Reyes MD, (md do resident urgent care). > Interpreting Provider: Enrique Devine MD on [...] in the presence of Jesus Reyes MD, (md do resident urgent care). > Interpreting Provider: Enrique Devine MD on 08/25/2024 2:10 PM Zana Chavis MD MR ORDERABLES Final Result * BASIC METABOLIC PANEL (CALCIUM TOTAL) (03/08/2024 2:[address] [facility]) BUN 13 7 - 26 mg/dL 03/08/2024 3:43 AM [facility] Creatinine 0.86 0.71 - 1.16 mg/dL 03/08/2024 3:43 AM [facility] Sodium 138 136 - 145 mmol/L 03/08/2024 3:43 AM [facility] Potassium 4.1 3.5 - 4.5 mmol/L 03/08/2024 3:43 AM [facility] Chloride 101 98 - 107 mmol/L 03/08/2024 3:43 AM [facility] CO2 28 22 - 29 mmol/L 03/08/2024 3:43 AM [facility] Glucose 92 70 - 99 mg/dL 03/08/2024 3:43 AM [facility] Calcium 8.6 8.4 - 10.2 mg/dL 03/08/2024 3:43 AM [facility] Anion Gap 9 6 - 16 03/08/2024 3:43 AM [facility] BUN/Creatinine Ratio 15 7 - 23 03/08/2024 3:43 AM [facility] Osmolality Calculated 286 275 - 295 mOsm/kg 03/08/2024 3:43 AM [facility] eGFR by CKD-EPI >90 >=90 mL/min/1.7 3 m2 03/08/2024 3:43 AM [facility] Blood BLOOD SPECIMEN / Unknown Lab Venipuncture / Unknown 03/08/2024 2:[address] [facility] 03/08/2024 3:[address] [facility] us Elida Weston APRN-PETROLEUM SUPPLY SPECIALIST LAB - CHEMISTRY ORDERABLE S Final Result Performing Organization Address [facility]/ZIP Co de Phone Number [facility] [address] [place] [address], [place] [phone] * HEPATITIS C AB SCREEN RFLX NAAT QUANT (09/27/2018 4:32 PM CDT) Pathologist [facility] Hepatitis C Antibody Non-react [facility] 09/27/2018 5:12 PM CDT [facility] Comment: Hepatitis C Antibody screen indicates [...] MD LAB - CHEMISTRY ORDERABLES Final Result Performing Organization Address City/[facility]/ZIP Co de Phone Number [facility] [address] [place] [address], [facility] [phone] from Last 3 Months or Most Recently Relevant to Health Maintenance Insurance PAYOR GENERIC * Guarantor: [id number] [facility] Account Type Relation to Patient Date of Phone Billing Address Workers Comp EMPLOYEE [address] [place] [address] WORKERS COMP PAYOR GENERIC TPL THIRD DEMOCRAT LIABILITY [facility] MANAGED MEDICARE ADV TP THIRD DEMOCRAT LIABILITY Advance Directives * Full Code (Latest Code Status on File) Date Activated Date Inactivated Comments 02/16/2024 8:58 PM 03/08/2024 10:24 PM Care Teams Ultrasound Sonographer Relationship Specialty Start Date End Date Alexander Donald DO [address] [facility] [address] [place], [place] [id number] PCP - General Internal Medicine 09/27/18
--- OUTSIDE RECORDS SUMMARY | 2024-11-02 14:55 | XMS_ITS | Encounter Summary ---
Author Organization [facility] Address [address] [facility] [address] [place] [address] Care Team Providers Care Human Services Manager Name Role Phone Alexander Donald MD Primary Care Provider [phone] Louis Mo MD Unavailable [phone] Edmond Baez MD Unavailable Encounter Details Date Type Department Care Team (Late st Contact Info) Description 03/20/2016 Orders Only [facility] ProviderSruthi MD [address] [place], [place] [id number] Social History Tobacco Use Types Packs/Day Years Used Date Smoking Tobacco: Never Alcohol Use Standard Drinks/Week Comments Yes 0 (1 standard drink = 0.6 oz pur e alcohol) Sex and Gender Information Value Date Recorded Sex Assigned at Not on file Legal Sex Male 3:55 PM MOLDER FEEDER Gender Identity Not on file Sexual Orientation [...] on filedocumented in this encounter Care Teams Human Services Manager Relationship Specialty Start Date End Date Alexander Donald MD [address] [facility] [address] [place] [address] PCP - General 03/20/16 Louis Mo MD [address] [address] Radiation Oncologist Radiation Oncology 08/29/19 Edmond Baez MD [address] [address] Radiation Oncologist Radiation Oncology 06/12/21 documented as of this encounter
--- OUTSIDE RECORDS SUMMARY | 2024-11-02 14:55 | XMS_ITS ---
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
== END 2024-11-02 14:19 | disposition home or self-care (01) ==
PROVIDERS: PCP Internal Medicine; Visit Provider Internal Medicine Cardiovascular Disease
DX: R60.0 Localized edema (principal)
CPT/HCPCS: 93970

== ENCOUNTER 2024-11-29 14:54 | Outpatient (CLI) | payer MEDICARE, SELFPAY ==
--- OUTSIDE RECORDS SUMMARY | 2021-01-21 06:00 | XMS_ITS | Continuity of Care Document ---
Author Organization [facility] Address [address] [place] [address] Phone Care Team Providers Care Switching Operator Name Role Phone Jimenez Wallace MD Unavailable Unavailable Procedures Procedure Date INJ [...] Diagnoses Date Provider Providers Copied on Encounter [facility], [address], [place], [place], [address], tel:[phone] [facility] No Information Rodrigo Gaona. [address] [place], [place], [address], [place]. tel:[phone] Referring Provider: Aureliano Hansen DO, [address], [place], [address]. tel:[phone] [facility], [address], [place], [place], [address], tel:[phone] [facility] No Information Jake Pollard. [address], [place], [address], [place]. tel:[phone] Referring Provider: Aureliano Hansen DO, [address], [place], [address]. tel:[phone] Family History Family Member Type Diagnosis Age At Onset No Information Payers Payer name Insurance type Covered democrat ID Authoriza tilevi(s) MEDICARE [id number] [facility] ACCESS [id number] Social History Type Description Quantity Date Captured [...]
[2024-11-29 15:32] LABS: CRP 0.7 mg/dL (<1.0)
--- OUTSIDE RECORDS SUMMARY | 2024-11-29 15:50 | XMS_ITS | Encounter Summary ---
Author Organization [facility] Address [address] [facility] [address] [place] [address] Care Team Providers Care Tobacco Sprayer Name Role Phone Alexander Donald MD Primary Care Provider [phone] Louis Mo MD Unavailable [phone] Edmond Baez MD Unavailable [phone] Encounter Details Date Type Department Care Team (Late st Contact Info) Description 03/20/2016 Orders Only [facility] ProviderSruthi MD [address] [place], [place] [id number] Social History Tobacco Use Types Packs/Day Years Used Date Smoking Tobacco: Never Alcohol Use Standard Drinks/Week Comments Yes 0 (1 standard drink = 0.6 oz pur e alcohol) Sex and Gender Information Value Date Recorded Sex Assigned at Not on file Legal Sex Male 3:55 PM PIANO AND ORGAN REFINISHER Gender Identity Not on file Sexual Orientation [...] on filedocumented in this encounter Care Teams Tobacco Sprayer Relationship Specialty Start Date End Date Alexander Donald MD [address] [facility] [address] [place] [address] PCP - General 03/20/16 Louis Mo MD [address] [address] Radiation Oncologist Radiation Oncology 08/29/19 Edmond Baez MD [address] [address] Radiation Oncologist Radiation Oncology 06/12/21 documented as of this encounter
--- OUTSIDE RECORDS SUMMARY | 2024-11-29 15:50 | XMS_ITS | Clinical Summary ---
Author Organization [facility] [address] Address [address] [place] [address] Care Team Providers Care Core Analysis Operator Name Role Phone Alexander Donald MD Primary Care Provider [phone] Edmond Baez MD Unavailable [phone] Allergies Active Allergy Reactions Criticality Noted Date Comments Atorvastatin Muscle pain Medium 04/21/2019 Muscle cramping and muscles quiver and couldn't walk Clarithromycin Other (See comments),Unknown,Rash High 06/12/2023 Reaction: discolored skin, Biaxin Medications CLINDAMYCIN PHOSPHATE TOPIndications: acne on nose [...] mouth nightly 30 tablet 11 3 Active Additional Information Patient not taking.Reported on 11/03/2024 metoprolol XL (TOPROL-XL) 100 mg 24 hr tablet Take 1 tablet (100 mg total) by mouth daily 90 tablet 3 4 Active rivaroxaban (Xarelto) 20 mg tablet TAKE 1 TABLET(20 MG) BY MOUTH DAILY 90 tablet 1 4 Active Additional Information Patient not taking.Reported on 11/03/2024 diazePAM (VALIUM) 5 mg tabletIndicatio ns:Sedation Take 1 tablet (5 mg total) by mouth once for 1 dose Take 1 tablet by mouth 30 min prior to MRI 1 tablet 4 Active Additional Information Patient not taking.Reported on 11/03/2024 flecainide (TAMBOCOR) 50 mg tablet TAKE 1 TABLET(50 MG) BY MOUTH TWICE DAILY 180 tablet 3 4 Active olmesartan-hydr ochlorothiazide (BENICAR HCT) 40-25 mg per tablet TAKE 1 TABLET BY MOUTH DAILY 90 tablet 4 12/21/19 25 Active fluorouraciL (EFUDEX) 5 % creamIndication s:Actinic Keratosis Apply topically 2 (two) times a day On face and scalp for 7 days; Mix 1:1 with Efudex 40 g 5 01/17/20 25 Active calcipotriene (DOVONOX) 0.005 % ointment Apply topically 2 (two) times a day To face and scalp for 7 days; Mix 1:1 with Efudex 60 g 5 11/18/19 26 Active Active 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 This arrhythmia would also respond to antiarrhythmic drug therapy. We will arrange appropriate follow-up after the results of the patient's echocardiogram. Anticoagulation management encounter 01/26/2018 Assessment & Plan (04/10/2021 2:24 PM ENTERPRISE SALES EXECUTIVE): The patient has a [id number] score of 4 (annualized risk of stroke 4 %). I have therefore recommended continued anticoagulation for thromboprophylaxis. The patient will follow-up with me in 12 months for an office visit and twelve- lead ECG. Assessment & Plan (01/26/2018 3:35 PM ENTERPRISE SALES EXECUTIVE): The patient has a [id number] score of 4 (annualized risk of stroke 4.0 %). I have therefore recommended that he remain anticoagulated for thromboprophylaxis. Paroxysmal atrial fibrillation 04/12/2014 Overview (05/29/2016): PAF (paroxysmal atrial fibrillation) Assessment & Plan (04/07/2022 5:22 PM ENTERPRISE SALES EXECUTIVE): Symptomatic paroxysmal atrial fibrillation, presently managed with [...] monitor for toxicity. The patient has a [id number] score of 4 (annualized risk of stroke 4%). I have therefore recommended continued anticoagulation for thromboprophylaxis. The patient will follow-up with me in 12 months for an office visit and twelve- lead ECG. Assessment & Plan (04/10/2021 2:23 PM ENTERPRISE SALES EXECUTIVE): Paroxysmal atrial fibrillation, symptomatic. He is doing well with antiarrhythmic drug therapy with flecainide. Assessment & Plan (01/26/2018 3:33 PM ENTERPRISE SALES EXECUTIVE): The patient has symptomatic paroxysmal atrial fibrillation. [...] Encounters Date Type Department Care Team Description 11/22/2024 Results Follow-Up [facility] Medicine Dermatology [address] [place] [phone] Ophelia Bustillo MD PhD Surgical pathology 11/18/2024 Orders Only [facility] Medicine Pathology Outreach [address] [place] [address] Ophelia Bustillo MD PhD Neoplasm of unspecified behavior of bone, soft tissue, and skin 11/17/2024 1:15 PM CDT Office Visit [facility] Dermatology [address] [place] [phone] Ophelia Bustillo MD PhD Seborrheic keratosis (Primary Dx); Lentigines; Purpura; Epidermal cyst; Skin ulcer, limited to breakdown of skin (HCC); Actinic keratosis; Neoplasm of unspecified behavior of bone, soft tissue, and skin; History of nonmelanoma skin cancer; History of radiation therapy 11/03/2024 12:00 PM CDT Office Visit [facility] Surgery [address] [place] [address] [address] [place] [address] [place] [phone] Neva Cox MD Right foot drop (Primary Dx) 10/19/2024 Telephone [facility] Surgery [address] [place] [address] 6[address] [place] [address] [place] [phone] Lea De Jesus PT LESA ACCEPTED from [...] Atrial fibrillation (HCC) Dr. 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 Gender Identity Not on file Sexual Orientation Not on file Obstetrics History Last Filed Vital Signs Vital Sign Reading Time Taken Comments Blood Pressure 132/70 02/11/2023 9:07 AM ENTERPRISE SALES EXECUTIVE Pulse 64 02/11/2023 9:07 AM ENTERPRISE SALES EXECUTIVE Temperature 37.4 C (99.3 F) 08/22/2020 10:09 AM CDT Respiratory Rate 18 04/03/2022 12:56 PM ENTERPRISE SALES EXECUTIVE Oxygen Saturation 94% 02/11/2023 9:07 AM ENTERPRISE SALES EXECUTIVE Inhaled Oxygen Concentration - - Weight 104.8 kg (231 lb) 02/11/2023 9:07 AM ENTERPRISE SALES EXECUTIVE Height 180.3 cm (5' 11) 02/11/2023 9:07 AM ENTERPRISE SALES EXECUTIVE Body Mass Index 32.22 02/11/2023 9:07 AM ENTERPRISE SALES EXECUTIVE Plan of Treatment Health Maintenance Due Date [...] 01/15/2021, 05/13/2020, 04/22/2020 Influenza Vaccine (#1) 2024 0, 02/28/2019, 12/14/2017, Additional history exists DTaP/Tdap/Td Vaccine (3 - Td or Tdap) 02/15/2034 02/16/2024, 09/27/2018 Procedures Procedure Name Priority Date/Time Associated Diagnosis Comments SURGICAL PATHOLOGY Routine 11/17/2024 12 :00 AM CDT Neoplasm of unspecified behavior of bone, soft tissue, and skin from Last 3 Months Results * Surgical pathology (11/17/2024 12:00 AM CDT) Tissue (Skin, shave biopsy) 11/17/2024 11/18/2024 8:58 AM CDT [facility] - 11/21/2024 2:38 PM CDT EPIC results best viewed via link to PDF [place] [address] [facility], [address], [place] [address] [email or web address] Note to Patients: This report may contain a detailed description of human tissue sent by a health care provider to the laboratory for pathologic evaluation. The content of this report is essential for diagnosis and may provide important critical findings. This information may be unfamiliar to patients to review without a medical professional present. It is advised that the patient review this report in the presence of a health care provider who can answer questions and explain the details. FINAL REPORT Patient Information: PATIENT NAME: AYAN TRAVIS SEX: M : 1955 (Age: 68) Specimen Information: COLLECTED: 11/17/2024 RECEIVED: 11/18/2024 REPORTED: 11/21/2024 Submitting Physician Information: Ophelia Bustillo M.D. Dermatology [facility] [address], [address] [place] [address], DERMATOPATHOLOGY REPORT RESULTS DIAGNOSIS: SKIN, RIGHT CONCHAL, SHAVE BIOPSY: BASAL CELL CARCINOMA, SURFACE OF LESION Note: The lesion has been traumatized. /spng By this signature, I attest that the above diagnosis is based upon my personal examination of the slides(and/or other material indicated in the diagnosis). Darek Cantu MD, PhD Report Electronically Reviewed and Signed Out By Darek Cantu MD, PhD 11/21/2024 14:38:06 CLINICAL INFORMATION R/O BCC VS TRAUMA VS ACNEIFORM SPECIMEN DATA MICROSCOPIC DESCRIPTION: Emanating from the undersurface of the epidermis, there is a proliferation of atypical basaloid epithelial cells with palisading of peripheral nuclei. (C44.91) GROSS DESCRIPTION: Received in a formalin-containing bottle is a superficial fragment of red-brown, slightly raised, and scaly skin measuring 0.5 by 0.4 by 0.2 cm. The surgical margin is inked blue. The specimen is sectioned into 2 pieces and submitted entirely in a single cassette. Due to shrinkage, measurements may be different than those at time of procedure. jason/mat ICD-9 A; ZSD.176 Clerical Data A; 89076 The characteristics of special, immunohistochemical, and immunofluorescence stains and in-situ hybridization tests performed by the [facility] were deemed acceptable in ongoing air quality instrument specialist measures and in compliance with regulations drawn from the Clinical Laboratory Improvement Act ru8590 (CLIA '88). Control reactions for all stains performed were deemed adequate and appropriate by a pathologist prior to evaluation of patient tissue. Some diagnoses were rendered with the assistance of laboratory-developed tests utilizing analyte-specific reagents; the performance characteristic of these tests were determined by [facility] and are not cleared or approved by the [place] Food an Drug administration. Laboratory developed test may only be performed in a facility that is certified by the [facility] as a high-complexity laboratory under CLIA '88. These tests are used for clinical purposes and are not investigational. us Ophelia Bustillo MD PhD LAB PATHOLOGY OR DERABLES Final Result D[facility]MATOPATHOLOGY CENTER [address] [place] [id number] from Last 3 Months Insurance C MDCR HMO REF [facility] Address: [address] [place] [phone] [facility] Address: [address] [phone] [facility] Address: [address] [phone] Care Teams Core Analysis Operator Relationship Specialty Start Date End Date Alexander Donald MD [address] [facility] [address] [place] [address] PCP - General 03/20/16 Edmond Baez MD [address] [place] [id number] Radiation Oncologist Radiation Oncology 06/12/21
--- OUTSIDE RECORDS SUMMARY | 2024-11-29 15:50 | XMS_ITS | Encounter Summary ---
Author Organization [facility] Address [address] [place] [address] Phone Care Team Providers Care Medical Assistant Internal Medicine Name Role Phone Alexander Donald MD Primary Care Provider [phone] Edmond Baez MD Unavailable [phone] Encounter Details Date Type Department Care Team (Late st Contact Info) Description 11/22/2024 Results Follow-Up [facility] Medicine Dermatology [address] [facility] [address] [place] [phone] Ophelia Bustillo MD PhD [address] [place] [id number] Surgical pathology Social History Tobacco Use Types Packs/Day Years Used Date Smoking Tobacco: Never Smokeless Tobacco: Never Alcohol Use Standard Drinks/Week Comments [...] on file 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
--- OUTSIDE RECORDS SUMMARY | 2024-11-29 15:50 | XMS_ITS ---
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 This arrhythmia would also respond to antiarrhythmic drug therapy. We will arrange appropriate follow-up after the results of the patient's echocardiogram. Anticoagulation management encounter 01/26/2018 Assessment & Plan (04/10/2021 2:24 PM TON CYLINDER INSPECTOR): The patient has a [id number]-HMZh score of 4 (annualized risk of stroke 4 %). I have therefore recommended continued anticoagulation for thromboprophylaxis. The patient will follow-up with me in 12 months for an office visit and twelve- lead ECG. Assessment & Plan (01/26/2018 3:35 PM TON CYLINDER INSPECTOR): The patient has a [id number] score of 4 (annualized risk of stroke 4.0 %). I have therefore recommended that he remain anticoagulated for thromboprophylaxis. Paroxysmal atrial fibrillation 04/12/2014 Overview (05/29/2016): PAF (paroxysmal atrial fibrillation) Assessment & Plan (04/07/2022 5:22 PM TON CYLINDER INSPECTOR): Symptomatic paroxysmal atrial fibrillation, presently managed with [...] monitor for toxicity. The patient has a [id number] score of 4 (annualized risk of stroke 4%). I have therefore recommended continued anticoagulation for thromboprophylaxis. The patient will follow-up with me in 12 months for an office visit and twelve- lead ECG. Assessment & Plan (04/10/2021 2:23 PM TON CYLINDER INSPECTOR): Paroxysmal atrial fibrillation, symptomatic. He is doing well with antiarrhythmic drug therapy with flecainide. Assessment & Plan (01/26/2018 3:33 PM TON CYLINDER INSPECTOR): The patient has symptomatic paroxysmal atrial fibrillation. [...] found. Radiation Treatments * Course C[facility] [place] [facility] [place]909[place]/2019 - 11/14/2019 Treatment Period Energy Fraction Dose Fractions Total Dose Plans [facility] 09/29/2019 - 11/14/2019 200 30 / 6,000 Reference Points Delivered [facility] 09/29/2019 - 11/14/2019 6,000
--- OUTSIDE RECORDS SUMMARY | 2024-11-29 15:50 | XMS_ITS ---
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
--- OUTSIDE RECORDS SUMMARY | 2024-11-29 15:50 | XMS_ITS | Clinical Summary ---
Author Organization [facility] Address [address] [place] [address] Care Team Providers Care Software Tester Name Role Phone Alexander Donald Primary Care Provider Source Comments [facility],non-owned Affiliates and Associated Physician Practices is amultiple site organization consisting of ambulatory clinics and hospital sitesin [place], [place], [place] and [place]. This disclosure is being madepursuant to the Care Everywhere program and may not contain all information available regarding this patient. 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 Weakness 08/22/2020 Squamous cell carcinoma of skin of left cheek Enthesopathy of hip region 05/18/2019 Knee pain 05/18/2019 Lateral epicondylitis 05/18/2019 Pain in limb 05/18/2019 Ganglion cyst of volar aspect of right wrist 01/2020 Overview (06/28/2024): Added automatically from request for surgery [id number] Anticoagulation management encounter 01/26/2018 History of transient cerebral ischemia 5 Overview (06/28/2024): History of TIA (transient ischemic attack) Hypertension 04/12/2014 Overview (06/28/2024): HTN (hypertension) Paroxysmal atrial fibrillation 04/12/2014 Overview (06/28/2024): PAF (paroxysmal atrial fibrillation) Family history of other specified conditions 02/1961 Resolved Problems Problem Noted Date Diagnosed Date Resolved Date Finger laceration, initial encounter 10/06/2018 02/18/2024 Encounters Date Type Department Care Team Description 11/23/2024 Orders Only [facility] - Orthopedics [address] [place] [phone] Jami Mota RN Claudication of both lower extremities 11/15/2024 1:00 PM CDT Office Visit [facility] [address] [place] [phone] Yohan Vera MD Claudication of both lower extremities (Primary Dx) 11/15/2024 12:53 PM CDT - 11/15/2024 11:59 PM CDT Hospital Encounter [facility] DIAGNOSTIC RAD [address] [address] [place] [phone] Yohan Vera MD Discharge Disposition: Home or Self Care 11/15/2024 Travel 11/14/2024 Orders Only [facility] - Orthopedics [address] [place] [phone] Yohan Vera MD Lumbar spine pain 10/10/2024 Telephone [facility] - Neurology [address] [place] [phone] Zana Chavis MD Referral 10/10/2024 Telephone [facility]rology [address] [place] [phone] Zana Chavis MD Referral 09/26/2024 Telephone [facility]rology [address] [place] [phone] Zana Chavis MD General 09/23/2024 Telephone [facility] [address] [place] [phone] Zana Chavis MD General 08/29/2024 10:01 AM CDT - 08/29/2024 11:59 PM CDT Hospital Encounter [facility] DIAGNOSTIC RAD [address]SM [address] [place] [phone] Cleopatra Dietz MD Discharge Disposition: Home or Self Care 08/29/2024 10:00 AM CDT Office Visit [facility] - Orthopedics [address] [place] [phone] None, Physician Cleopatra Dietz MD Closed fracture of right tibial plateau with routine healing, subsequent encounter (Primary Dx) 08/29/2024 Travel from Last 3 Months Immunizations Immunization [...] Answer Date Recorded Patient Health Questionnaire-2 Score 3 11/08/2024 [facility] - Occupational Stress [...] any time in the past 12 m [facility], were you homeless or living in a half-way (including now)? No 02/17/2024 Sex and Gender Information Value Date Recorded Sex Assigned at Not on file Legal Sex Male 5:22 PM COFOUNDER Gender Identity Not on file Sexual Orientation Not on file Last Filed Vital Signs Vital Sign Reading Time Taken Comments Blood Pressure 123/82 06/28/2024 8:17 AM CDT Pulse 68 06/28/2024 8:17 AM CDT Temperature 36.8 C (98.2 F) 03/28/2024 11:55 AM COFOUNDER Respiratory Rate 18 03/28/2024 11:5 5 AM COFOUNDER Oxygen Saturation 94% 06/28/2024 8:17 AM CDT Inhaled Oxygen Concentration - - Weight 107.9 kg (237 lb 12.8 oz) 11/15/2024 1:03 PM CDT Height 180.3 cm (5' 11) 08/29/2024 10: 27 AM CDT Body Mass Index 33.17 08/29/2024 10:27 AM CDT Plan of Treatment Upcoming Encounters Date Type Department Care Team (Late st Contact Info) Description 02/06/2025 10:00 AM COFOUNDER Office Visit [facility] - Orthopedics [address] [facility] [place] [phone] None, Physician Any Neri, RAILROAD WHEELS AND AXLE INSPECTOR-SANITARIAN INSPECTOR [address] [place] [address] 03/29/2025 3:00 PM COFOUNDER Appointment [facility] EEG/EMG [address] [place] [phone] Vicki Vasquez MD [address] [facility] [address] [place] [phone] Health Maintenance Due Date Last Done Comments [...] AWV CALENDAR YEAR 2024 COVID-19 VACCINE ( - season) 2024 01/07/2023, 02/01/2022, 01/15/2021, Additional history [...] conserve energy Medical Devices Implanted Type Area Cyber Threat Analyst Device Identifier Shelf Expiration Date Model / Serial / Lot Screw 5mm 200mm Dist Rds Blnt Troc Pnt Implanted:Qty: 4 on 02/17/2024 by Silvino Cárdenas DO at [facility] Synthes Usa 294.56 / / Graft Bone Canc 4-9.5mm 15cc [facility] - [id number] Implanted:Qty: 1 on 02/29/2024 by Oniel Caro MD at [facility] Right: Tibia [employer] 10/11/2028 [id number] / [id number] / [id number] Screw 4mm 6mm 80mm 2.5mm Ft Slf-Tap Sm Implanted:Qty: 1 on 02/29/2024 by Oniel Caro MD at [facility] Right: Tibia [employer] Usa 206.480 / / Screw 4mm 6mm 80mm 2.5mm Ft Slf-Tap Sm Implanted:Qty: 1 on 02/29/2024 by Oniel Caro MD at [facility] Right: [employer]ia [employer] Trauma 206.485 / / 2.4mm X 80 Cortical Implanted:Qty: 2 on 02/29/2024 by Oniel Caro MD at [facility] Right: [employer] Trauma 02.210.980 / / 2.4mm X 75mm Cortical Implanted:Qty: 1 on 02/29/2024 by Oniel Caro MD at [facility] Right: [employer] Trauma 02.210.975 / / Screw 3.5mm 85mm T15 Slf-Tap Lck Va Implanted:Qty: 2 on 02/29/2024 by Oniel Caro MD at [facility] Right: [employer] 02.127.185 / / Screw 3.5mm 80mm T15 Slf-Tap Lck Va Implanted:Qty: 2 on 02/29/2024 by Oniel Caro MD at [facility] Right: [employer] 02.127.180 / / Screw 3.5mm 6mm 50mm Slf-Tap Sm Hex Sckt Implanted:Qty: 1 on 02/29/2024 by Cleopatra Dietz MD at [facility] Right: [employer] 204.850 / / Screw 3.5mm 6mm 60mm Slf-Tap Sm Hex Sckt Implanted:Qty: 1 on 02/29/2024 by Cleopatra Dietz MD at [facility] Right: [employer]sa 204.860 / / Graft Bone Canc 60ml Frzdr Chp 4-9.5mm - [id number] Implanted:Qty: 1 on 02/29/2024 by Cleopatra Dietz MD at [facility] Right: [employer] 09/19/2027 [id number] / [id number] / [id number] Hole Right Medial Prox Tib Plate Implanted:Qty: 1 on 02/29/2024 by Oniel Caro MD at [facility] Right: [employer] Trauma 239.956S / / Screw 3.5mm 6mm 34mm 2.5mm Ft Slf-Tap Implanted:Qty: 1 on 02/29/2024 by Oniel Caro MD at [facility] Right: [employer]ia [employer] Usa 204.834 / / 2.0 Volt (Tm) Adaption Plate Implanted:Qty: 1 on 02/29/2024 by Oniel Caro MD at [facility] Right: Tibia 02.420.040 / / Plate Strg 84x10.1x3.5mm Ss 3.5mm Scr Sm Implanted:Qty: 1 on 02/29/2024 by Cleopatra Dietz MD at [facility] Right: [employer]ia [employer] Usa 245.061 / / Screw 3.5mm 6mm 44mm 2.5mm Ft Slf-Tap Implanted:Qty: 1 on 02/29/2024 by Cleopatra Dietz MD at [facility] Right: [employer]sa 204.844 / / Screw 3.5mm 6mm 46mm 2.5mm Ft Slf-Tap Implanted:Qty: 1 on 02/29/2024 by Cleopatra Dietz MD at [facility] Right: [employer]sa 204.846 / / Screw 3.5mm 6mm 55mm 2.5mm Ft Slf-Tap Implanted:Qty: 1 on 02/29/2024 by Cleopatra Dietz MD at [facility] Right: [employer]sa 204.855 / / Explanted Type Area Cyber Threat Analyst Device Identifier Shelf Expiration Date Model / Serial / Lot 3.5mm X 90mm Va Locking Explanted:Qty: 1 on 02/29/2024 by Cleopatra Dietz MD at [facility] Right: [employer]ia [employer] Trauma 02.127.190 / / Screw 3.5mm 6mm 70mm Ft Rivera Slf-Tap Sm Explanted:Qty: 1 on 02/29/2024 by Oniel Caro MD at [facility] Right: Tibia [employer] Usa 204.870 / / Screw Extfix 170mm 5mm Schnz Xlng Plvc Explanted:Qty: 1 on 02/29/2024 by Oniel Caro MD at [facility] Right: [employer]ia [employer]sa 294.55 / / Screw 5mm 200mm Dist Rds Blnt Troc Pnt Explanted:Qty: 1 on 02/29/2024 by Oniel Caro MD at [facility] Right: [employer]ia [employer]sa 294.56 / / Gw Orth 200mm 1.6mm Lcp Perc Ss Drl Tip Explanted:Qty: 5 on 02/29/2024 by Oniel Caro MD at [facility] Right: [employer]ia [employer]sa 02.113.001 / / Procedures Procedure Name Priority Date/Time Associated Diagnosis Comments XR LUMBAR SPINE 2 OR 3VW Routine 11/15/2024 1:03 PM CDT Lumbar spine pain XR KNEE RIGHT 3VW Routine 08/29/2024 10: 17 AM CDT Closed fracture of right tibial plateau with routine healing, subsequent encounter BASIC METABOLIC PANEL (CALCIUM TOTAL) AM Draw 03/08/2024 2:20 AM COFOUNDER HEPATITIS C AB SCREEN RFLX NAAT QUANT STAT 09/27/2018 4:32 PM CDT from Last 3 Months or Most Recently Relevant to Health Maintenance Results * XR Lumbar Spine 2 or 3Vw (11/15/2024 1:03 PM CDT) Anatomical Region Laterality Modality Spine Radiographic Suzan ging 11/16/2024 12:1 0 AM CDT Impressions 11/16/2024 12:12 AM CDT IMPRESSION: There is posterior enhancement to spinal fusion and posterior decompression of L4-L5. There is mild retrolisthesis of L2-L3. Vertebral body heights are normal. There is mild L2-L3 degenerative disc disease. > Interpreting Provider: Eliseo Murguia MD on 11/16/2024 12:12 AM Narrative 11/16/2024 12:12 AM CDT PROCEDURE: XR LUMBAR SPINE 2 OR 3VW DATE/TIME OF EXAM: 11/15/2024 1:03 PM CLINICAL INFORMATION: None relevant/not provided if blank. Indication: M54.50: Lumbar spine pain Additional History: COMPARISON: 08/22/2024, MRI LUMBAR SPINE WO CONTRAST Procedure Note Eliseo Murguia MD - 11/16/2024 PROCEDURE: XR LUMBAR SPINE 2 OR 3VW DATE/TIME OF EXAM: 11/15/2024 1:03 PM CLINICAL INFORMATION: None relevant/not provided if blank. Indication: M54.50: Lumbar spine pain Additional History: COMPARISON: 08/22/2024, MRI LUMBAR SPINE WO CONTRAST IMPRESSION: There is posterior enhancement to spinal fusion and posteriordecompression of L4-L5. There is mild retrolisthesis of L2-L3. Vertebral body heightsare normal. There is mild L2-L3 degenerative disc disease. > Interpreting Provider: Eliseo Murguia MD on 11/16/2024 12:12 AM Yohan Vera MD DIAGNOSTIC IMAGING ORDERABLES Fi nal Result * XR Knee Right 3Vw (08/29/2024 10:17 [...] DIAGNOSTIC IMAGING ORDERABLES Fi nal Result * BASIC METABOLIC PANEL (CALCIUM TOTAL) (03/08/2024 2:20 AM [facility]) Pathologist [facility] BUN 13 7 - 26 mg/dL 03/08/2024 3:43 AM [facility] Creatinine 0.86 0.71 - 1.16 mg/dL 03/08/2024 3:43 AM [facility] Sodium 138 136 - 145 mmol/L 03/08/2024 3:43 AM [facility] Potassium 4.1 3.5 - 4.5 mmol/L 03/08/2024 3:43 AM [facility] Chloride 101 98 - 107 mmol/L 03/08/2024 3:43 AM [facility] CO2 28 22 - 29 mmol/L 03/08/2024 3:43 AM [facility] Glucose 92 70 - 99 mg/dL 03/08/2024 3:43 AM [facility] Calcium 8.6 8.4 - 10.2 mg/dL 03/08/2024 3:43 AM [facility] Anion Gap 9 6 - 16 03/08/2024 3:43 AM [facility] BUN/Creatinine Ratio 15 7 - 23 03/08/2024 3:43 AM [facility] Osmolality Calculated 286 275 - 295 mOsm/kg 03/08/2024 3:43 AM [facility] eGFR by CKD-EPI >90 >=90 mL/min/1.7 3 m2 03/08/2024 3:43 AM [facility] Blood BLOOD SPECIMEN / Unknown Lab Venipuncture / Unknown 03/08/2024 2:20 AM [facility] 03/08/2024 3:15 AM [facility] us Elida Weston RAILROAD WHEELS AND AXLE INSPECTOR-SANITARIAN INSPECTOR LAB - CHEMISTRY ORDERABLE S Final Result [facility] [address] [place] [phone], [facility] [phone] * HEPATITIS C AB SCREEN RFLX NAAT QUANT (09/27/2018 4:32 PM CDT) Pathologist [facility] Hepatitis C Antibody Non-react joann Non-reac tive 09/27/2018 5:12 PM CDT [facility] Comment: Hepatitis C Antibody screen indicates [...] 4:32 PM CDT 09/27/2018 4:32 PM CDT Nelson Ware MD LAB - CHEMISTRY ORDERABLES Final Result [facility] [address] [phone] from Last 3 Months or Most Recently Relevant to Health Maintenance Insurance [facility] MANAGED MEDICARE ADV PAYOR GENERIC PAYOR GENERIC * Guarantor: [id number] [facility] Account Type Relation to Patient Date of Phone Billing Address Workers Comp EMPLOYEE [address] [place] [address] WORKERS [employer] PAY[employer]IC [employer] [place] [address] MANAGED MEDICARE [place] [address] Advance Directives * Full Code (Latest Code Status on File) Date Activated Date Inactivated Comments 02/16/2024 8:58 PM 03/08/2024 10:24 PM Care Teams Software Tester Relationship Specialty Start Date End Date Alexander Donald DO [address] [facility] [address] [place] [address] PCP - General Internal Medicine 09/27/18
[2024-11-29 16:06] LABS: Prostate Specific Antigen 0.6 ng/mL (< OR = 4.0)
[2024-12-01 14:08] LABS: ANA by IFA Rfx Titer/Pattern Positive (.); ANA by IFA Rfx YES YES
== END 2024-11-29 14:55 | disposition home or self-care (01) ==
PROVIDERS: PCP Internal Medicine; Visit Provider Internal Medicine
DX: M25.50 Pain in unspecified joint (principal); Z12.5 Encounter for screening for malignant neoplasm of prostate
CPT/HCPCS: 36415; 84153; 86038; 86140; 86364; 86430; G0103

== ENCOUNTER 2025-01-06 08:55 | Outpatient (CLI) | payer MEDICARE, SELFPAY ==
--- OUTSIDE RECORDS SUMMARY | 2025-01-06 09:17 | XMS_ITS | Clinical Summary ---
Author Organization [facility] Address [address] [facility] [place] [address] Care Team Providers Care Construction Secretary Name Role Phone Alexander Donald Primary Care Provider Source Comments [facility],non-owned Affiliates and Associated Physician Practices is amultiple site organization consisting of ambulatory clinics and hospital sitesin [place], [place], [place] and [place]. This disclosure is being madepursuant to the Care Everywhere program and may not contain all information available regarding this patient. 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 Weakness 08/22/2020 Squamous cell carcinoma of skin of left cheek Enthesopathy of hip region 05/18/2019 Knee pain 05/18/2019 Lateral epicondylitis 05/18/2019 Pain in limb 05/18/2019 Ganglion cyst of volar aspect of right wrist 01/2020 Overview (06/28/2024): Added automatically from request for surgery [id number] Anticoagulation management encounter 01/26/2018 History of transient [...] Department Care Team Description 11/23/2024 Orders Only [facility] - Orthopedics [address] [place] [phone] Jami Mota RN Claudication of both lower extremities 11/15/2024 1:00 PM CDT Office Visit [facility] - Orthopedics [address] [place] [phone] Yohan Vera MD Claudication of both lower extremities (Primary Dx) 11/15/2024 12:53 PM CDT - 11/15/2024 11:59 PM CDT Hospital Encounter [facility] DIAGNOSTIC RAD [address] [place] [address] Yohan Vera MD Discharge Disposition: Home or Self Care 11/15/2024 Travel 11/14/2024 Orders Only [facility] - Orthopedics [address] [place] [phone] Yohan Vera MD Lumbar spine pain 10/10/2024 Telephone [facility] - Neurology [address] [place] [address] [place] [phone] Zana Chavis MD Referral 10/10/2024 Telephone [facility] [address] [place] [phone] Zana Chavis MD Referral from Last 3 Months Immunizations Immunization Administration [...] Recorded Patient Health Questionnaire-2 Score 3 11/08/2024 [facility] - Occupational Stress [...] any time in the past 12 m [facility], were you homeless or living in a prison (including now)? No 02/17/2024 Sex and Gender Information Value Date Recorded Sex Assigned at Not on file Legal Sex Male 5:22 PM CHART CHANGER Gender Identity Not on file Sexual Orientation Not on file Last Filed Vital Signs Vital Sign Reading Time Taken Comments Blood Pressure 123/82 06/28/2024 8:17 AM CDT Pulse 68 06/28/2024 8:17 AM CDT Temperature 36.8 C (98.2 F) 03/28/2024 11:55 AM CHART CHANGER Respiratory Rate 18 03/28/2024 11:5 5 AM CHART CHANGER Oxygen Saturation 94% 06/28/2024 8:17 AM CDT Inhaled Oxygen Concentration - - Weight 107.9 kg (237 lb 12.8 oz) 11/15/2024 1:03 PM CDT Height 180.3 cm (5' 11) 08/29/2024 10: 27 AM CDT Body Mass Index 33.17 08/29/2024 10:27 AM CDT Plan of Treatment Upcoming Encounters Date Type Department Care Team (Late st Contact Info) Description 02/06/2025 10:00 AM CHART CHANGER Office Visit [facility] - Orthopedics [address] [facility] [place] [phone] None, Physician Any Neri, ROOF BOLTER HELPER-SECTION REPAIRER [address] [place] [address] 03/29/2025 3:00 PM CHART CHANGER Appointment [facility] EEG/EMG [address] [place] [phone] Vicki Vasquez MD [address] [place] [address] [place] [phone] Health Maintenance Due Date Last Done Comments COLOGUARD (AGES 45-75) - COLON CA SCREENING 1953 COLON MONITORING 1953 COLONOSCOPY - COLON CA SCREENING 1953 CT COLONOGRAPHY - COLON CA SCREENING 1953 Colorectal Cancer Screening 1955 FIT - COLON CA SCREENING 1953 FLEX SIG - COLON CA SCREENING 1953 Respiratory Syncytial Virus (RSV) Vaccine Pt: or over 60 yrs (1 - Risk 50-74 years 1-dose series) 12/10/2003 ZOSTER VACCINE (1 of 2) 12/10/2003 PNEUMOCOCCAL VACCINE 50+ (2 of 2 - PCV) 11/11/2020 11/12/2019 MEDICARE AWV CALENDAR YEAR 2024 COVID-19 VACCINE (6 - 2024- season) 2024 01/07/2023, 02/01/2022, 01/15/2021, Additional history [...] conserve energy Medical Devices Implanted Type Area Food Storeroom Clerk Device Identifier Shelf Expiration Date Model / Serial / Lot Screw 5mm 200mm Dist Rds Blnt Troc Pnt Implanted:Qty: 4 on 02/17/2024 by Silvino Cárdenas DO at [facility] 294.56 / / Graft Bone Canc 4-9.5mm 15cc [facility] - [id number] Implanted:Qty: 1 on 02/29/2024 by Oniel Caro MD at [facility] Right: Tibia [employer] 10/11/2028 [id number] / [id number] / [id number] Screw 4mm 6mm 80mm 2.5mm Ft Slf-Tap Sm Implanted:Qty: 1 on 02/29/2024 by Oniel Caro MD at [facility] Right: Tibia [employer] Usa 206.480 / / Screw 4mm 6mm 80mm 2.5mm Ft Slf-Tap Sm Implanted:Qty: 1 on 02/29/2024 by Oniel Caro MD at [facility] Right: [employer] Trauma 206.485 / / 2.4mm X 80 Cortical Implanted:Qty: 2 on 02/29/2024 by Oniel Caro MD at [facility] Right: [employer] Trauma 02.210.980 / / 2.4mm X 75mm Cortical Implanted:Qty: 1 on 02/29/2024 by Oniel Caro MD at [facility] Right: [employer] Trauma 02.210.975 / / Screw 3.5mm 85mm T15 Slf-Tap Lck Va Implanted:Qty: 2 on 02/29/2024 by Oniel Caro MD at [facility] Right: [employer] Usa 02.127.185 / / Screw 3.5mm 80mm T15 Slf-Tap Lck Va Implanted:Qty: 2 on 02/29/2024 by Oniel Caro MD at [facility] Right: [employer]sa 02.127.180 / / Screw 3.5mm 6mm 50mm Slf-Tap Sm Hex Sckt Implanted:Qty: 1 on 02/29/2024 by Cleopatra Dietz MD at [facility] Right: [employer] Usa 204.850 / / Screw 3.5mm 6mm 60mm Slf-Tap Sm Hex Sckt Implanted:Qty: 1 on 02/29/2024 by Cleopatra Dietz MD at [facility] Right: [employer] Usa 204.860 / / Graft Bone Canc 60ml Frzdr Chp 4-9.5mm - [id number] Implanted:Qty: 1 on 02/29/2024 by Cleopatra Dietz MD at [facility] Right: [employer]ia [employer] 09/19/2027 [id number] / [id number] / [id number] Hole Right Medial Prox Tib Plate Implanted:Qty: 1 on 02/29/2024 by Oniel Caro MD at [facility] Right: [employer] Trauma 239.956S / / Screw 3.5mm 6mm 34mm 2.5mm Ft Slf-Tap Implanted:Qty: 1 on 02/29/2024 by Oniel Caro MD at [facility] Right: [employer] Usa 204.834 / / 2.0 Volt (Tm) Adaption Plate Implanted:Qty: 1 on 02/29/2024 by Oniel Caro MD at [facility] Right: Tibia 02.420.040 / / Plate Strg 84x10.1x3.5mm Ss 3.5mm Scr Sm Implanted:Qty: 1 on 02/29/2024 by Cleopatra Dietz MD at [facility] Right: [employer] Usa 245.061 / / Screw 3.5mm 6mm 44mm 2.5mm Ft Slf-Tap Implanted:Qty: 1 on 02/29/2024 by Cleopatra Dietz MD at [facility] Right: [employer] Usa 204.844 / / Screw 3.5mm 6mm 46mm 2.5mm Ft Slf-Tap Implanted:Qty: 1 on 02/29/2024 by Cleopatra Dietz MD at [facility] Right: [employer] Usa 204.846 / / Screw 3.5mm 6mm 55mm 2.5mm Ft Slf-Tap Implanted:Qty: 1 on 02/29/2024 by Cleopatra Dietz MD at [facility] Right: [employer] Usa 204.855 / / Explanted Type Area Food Storeroom Clerk Device Identifier Shelf Expiration Date Model / Serial / Lot 3.5mm X 90mm Va Locking Explanted:Qty: 1 on 02/29/2024 by lCeopatra Dietz MD at [facility] Right: [employer] Trauma 02.127.190 / / Screw 3.5mm 6mm 70mm Ft Rivera Slf-Tap Sm Explanted:Qty: 1 on 02/29/2024 by Oniel Caro MD at [facility] Right: [employer] Usa 204.870 / / Screw Extfix 170mm 5mm Schnz Xlng Plvc Explanted:Qty: 1 on 02/29/2024 by Oniel Caro MD at [facility] Right: [employer] Usa 294.55 / / Screw 5mm 200mm Dist Rds Blnt Troc Pnt Explanted:Qty: 1 on 02/29/2024 by Oniel Caro MD at [facility] Right: [employer] Usa 294.56 / / Gw Orth 200mm 1.6mm Lcp Perc Ss Drl Tip Explanted:Qty: 5 on 02/29/2024 by Oniel Caro MD at [facility] Right: [employer] Usa 02.113.001 / / Procedures Procedure Name Priority Date/Time Associated Diagnosis Comments XR LUMBAR SPINE 2 OR 3VW Routine 11/15/2024 1:03 PM CDT Lumbar spine pain BASIC METABOLIC PANEL (CALCIUM TOTAL) AM Draw 03/08/2024 2:20 AM CHART CHANGER HEPATITIS C AB SCREEN RFLX NAAT QUANT [...] METABOLIC PANEL (CALCIUM TOTAL) (03/08/2024 2:20 AM [facility]) BUN 13 7 - 26 mg/dL 03/08/2024 3:43 AM [facility] Creatinine 0.86 0.71 - 1.16 mg/dL 03/08/2024 3:43 AM [facility] Sodium 138 136 - 145 mmol/L 03/08/2024 3:43 AM [facility] Potassium 4.1 3.5 - 4.5 mmol/L 03/08/2024 3:43 AM [facility] Chloride 101 98 - 107 mmol/L 03/08/2024 3:43 AM [facility] CO2 28 22 - 29 mmol/L 03/08/2024 3:43 AM [facility] Glucose 92 70 - 99 mg/dL 03/08/2024 3:43 AM [facility] Calcium 8.6 8.4 - 10.2 mg/dL 03/08/2024 3:43 AM [facility] Anion Gap 9 6 - 16 03/08/2024 3:43 AM [facility] BUN/Creatinine Ratio 15 7 - 23 03/08/2024 3:43 AM [facility] Osmolality Calculated 286 275 - 295 mOsm/kg 03/08/2024 3:43 AM [facility] eGFR by CKD-EPI >90 >=90 mL/min/1.7 3 m2 03/08/2024 3:43 AM [facility] Blood BLOOD SPECIMEN / Unknown Lab Venipuncture / Unknown 03/08/2024 2:20 AM CHART CHANGER 03/08/2024 3:15 AM [facility] us Elida Weston ROOF BOLTER HELPER-SECTION REPAIRER LAB - CHEMISTRY ORDERABLE S Final Result Performing Organization Address [facility]/ZIP Co de Phone Number [facility] [address] [place] [address], [facility] [phone] * HEPATITIS C AB SCREEN RFLX NAAT QUANT (09/27/2018 4:32 PM CDT) Hepatitis C Antibody Non-react joann Non-reac tive 09/27/2018 5:12 PM CDT [facility] Comment: Hepatitis C Antibody screen indicates [...] MD LAB - CHEMISTRY ORDERABLES Final Result [facility] [address] [place] [address], [facility] [phone] from Last 3 Months or Most Recently Relevant to Health Maintenance Insurance [employer] Member Subscriber Plan / Payer (Ef fective 2018-Present) Name:Ayan Travis Member ID:[id number] Relation to Subscriber:Self Name:Ayan Travis Subscriber ID:[id number] Payer ID:Not on file Group ID:Not on file Type:Worker's Comp Address: [address] [facility] [address] [place] [id number] * Guarantor: [id number] [facility] Account Type Relation to Patient Date of Phone Billing Address Workers Comp EMPLOYEE [address] [place] [address] WORKERS COMP TPL THIRD REPUBL[employer] LIABILITY [facility] MANAGED MEDICARE ADV TP THIRD REPUBLICAN LIABILITY Advance Directives * Full Code (Latest Code Status on File) Date Activated Date Inactivated Comments 02/16/2024 8:58 PM 03/08/2024 10:24 PM Care Teams Construction Secretary Relationship Specialty Start Date End Date Alexander Donald DO [address] [facility] [address] [address] [facility] [address] [place] [address] PCP - General Internal Medicine 09/27/18
--- OUTSIDE RECORDS SUMMARY | 2025-01-06 09:17 | XMS_ITS | Encounter Summary ---
Author Organization [facility] Address [address] [place] [address] Phone Care Team Providers Care Flight Software Test Engineer Name Role Phone Alexander Donald MD Primary Care Provider [phone] Edmond Baez MD Unavailable [phone] Encounter Details Date Type Department Care Team (Late st Contact Info) Description 01/05/2025 Results Follow-Up [facility] Medicine Cardiology [address] 8th [place] [address] [place] [phone] Marysol Lucero MD [address] [facility] [address] [place] [address] ECG 12 lead Social History Tobacco Use Types Packs/Day Years [...] on file Legal Sex Male 3:55 PM SUPERVISOR SLASHING DEPARTMENT Gender Identity Not on file Sexual Orientation Not on file documented as of this encounter Plan of Treatment Not on file documented as of this encounter Visit Diagnoses Not on filedocumented in this encounter Care Teams Flight Software Test Engineer Relationship Specialty Start Date End Date Alexander Donald MD [address] [place] [address] PCP - General 03/20/16 Edmond Baez MD [address] [place] [address] Radiation Oncologist Radiation Oncology 06/12/21 documented as of this encounter
--- OUTSIDE RECORDS SUMMARY | 2025-01-06 09:17 | XMS_ITS ---
Author Organization [facility] Address [address] [facility] [place] [address] Care Team Providers Care Exercise Specialist Name Role Phone Alexander Donald Primary [...] (06/28/2024): Added automatically from request for surgery [id number] Anticoagulation management encounter 01/26/2018 History of transient [...]
--- OUTSIDE RECORDS SUMMARY | 2025-01-06 09:17 | XMS_ITS | Clinical Summary ---
Author Organization [facility] [address] Address [address] [place] [address] Care Team Providers Care Volcanologist Name Role Phone Alexander Donald MD Primary Care Provider [phone] Edmond Baez MD Unavailable [phone] Allergies Active Allergy Reactions Criticality Noted Date Comments Atorvastatin Muscle pain Medium 04/21/2019 Muscle cramping and muscles quiver and couldn't walk Clarithromycin Other (See comments),Unknown,Rash High 06/12/2023 Reaction: discolored skin, Biaxin Medications CLINDAMYCIN PHOSPHATE TOPIndication s:acne on nose Apply 1 application topically daily as needed Active traMADoL (ULTRAM) 50 mg tablet TAKE 1 TABLET BY MOUTH EVERY 4 TO 6 HOURS FOR 7 DAYS NEEDED 11/14/[address] (CYMBALTA) 30 mg capsule Take 30 mg by mouth daily 02/04/[address] (PROTONIX) 40 mg EC tablet Take 1 tablet (40 mg total) by mouth every morning 08/30/19 23 Active sildenafiL (VIAGRA) 100 mg tablet Take 1 tablet (100 mg total) by mouth daily 10/15/19 23 Active rivaroxaban (Xarelto) 20 mg tablet TAKE 1 TABLET(20 MG) BY MOUTH DAILY 90 tablet 1 06/23/19 24 Active Additional Information Patient not taking.Reported on 01/03/2025 diazePAM (VALIUM) 5 mg tabletIndicat ions:Sedation Take 1 tablet (5 mg total) by mouth once for 1 dose Take 1 tablet by mouth 30 min prior to MRI 1 tablet 07/07/19 24 Active Additional Information Patient not taking.Reported on 01/03/2025 flecainide (TAMBOCOR) 50 mg tablet TAKE 1 TABLET(50 MG) BY MOUTH TWICE DAILY 180 tablet 3 10/27/19 24 Active fluorouraciL (EFUDEX) 5 % creamIndicati ons:Actinic Keratosis Apply topically 2 (two) times a day On face and scalp for 7 days; Mix 1:1 with Efudex 40 g 11/18/19 25 025 Active calcipotriene (DOVONOX) 0.005 % ointment Apply topically 2 (two) times a day To face and scalp for 7 days; Mix 1:1 with Efudex 60 g 11/18/19 25 026 Active allopurinoL (ZYLOPRIM) 100 mg tablet Take 1 tablet (100 mg total) by mouth daily Active buPROPion XL (WELLBUTRIN XL) 150 mg 24 hr tablet Take 1 tablet (150 mg total) by mouth every morning 12/14/19 25 Active colchicine (COLCRYS) 0.6 mg tablet Take 1 tablet (0.6 mg total) by mouth daily 03/27/19 25 Active olmesartan-hy drochlorothia zide (BENICAR HCT) 40-25 mg per tablet Take 1 tablet by mouth daily 11/10/19 25 Active rosuvastatin (CRESTOR) 20 mg tablet Take 1 tablet (20 mg total) by mouth daily 05/26/19 24 Active tamsulosin (FLOMAX) 0.4 mg extended release capsule TAKE 1 CAPSULE BY MOUTH DAILY AFTER A MEAL Active metoprolol XL (TOPROL-XL) 100 mg 24 hr tablet Take 1 tablet (100 mg total) by mouth 2 (two) times a day 01/04/20 25 026 Active pitavastatin calcium (LIVALO) 2 mg tablet Take 1 tablet (2 mg total) by mouth nightly 30 tablet 11 02/12/20 23 025 Discontinued(Al ternate therapy) metoprolol XL (TOPROL-XL) 100 mg 24 hr tablet Take 1 tablet (100 mg total) by mouth daily 90 tablet 3 03/30/19 24 025 Discontinued olmesartan-hy drochlorothia zide (BENICAR HCT) 40-25 mg per tablet TAKE 1 TABLET BY MOUTH DAILY 90 tablet 12/21/19 24 025 Active Problems Problem Noted Date Diagnosed Date [facility] current use of antiarrhythmic drug Assessment & Plan (04/10/2021 2:24 PM PHARMACIST PER DIEM): 12-lead ECG today does not demonstrate any [...] (04/06/2019): Added automatically from request for surgery [id number] Finger laceration, initial encounter 10/06/2018 Ventricular ectopy 01/26/2018 Assessment & Plan (01/26/2018 3:35 PM PHARMACIST PER DIEM): The patient also appears to have symptomatic ventricular ectopy, as recorded by his home device. This arrhythmia would also respond to antiarrhythmic drug therapy. We will arrange appropriate follow-up after the results of the patient's echocardiogram. Anticoagulation management encounter 01/26/2018 Assessment & Plan (04/10/2021 2:24 PM PHARMACIST PER DIEM): The patient has a [id number] score of 4 (annualized risk of stroke 4 %). I have therefore recommended continued anticoagulation for thromboprophylaxis. The patient will follow-up with me in 12 months for an office visit and twelve- lead ECG. Assessment & Plan (01/26/2018 3:35 PM PHARMACIST PER DIEM): The patient has a [id number] score of 4 (annualized risk of stroke 4.0 %). I have therefore recommended that he remain anticoagulated for thromboprophylaxis. Paroxysmal atrial fibrillation 04/12/2014 Overview (05/29/2016): PAF (paroxysmal atrial fibrillation) Assessment & Plan (04/07/2022 5:22 PM PHARMACIST PER DIEM): Symptomatic paroxysmal atrial fibrillation, presently managed with [...] monitor for toxicity. The patient has a [id number] score of 4 (annualized risk of stroke 4%). I have therefore recommended continued anticoagulation for thromboprophylaxis. The patient will follow-up with me in 12 months for an office visit and twelve- lead ECG. Assessment & Plan (04/10/2021 2:23 PM PHARMACIST PER DIEM): Paroxysmal atrial fibrillation, symptomatic. He is doing well with antiarrhythmic drug therapy with flecainide. Assessment & Plan (01/26/2018 3:33 PM PHARMACIST PER DIEM): The patient has symptomatic paroxysmal atrial fibrillation. [...] Encounters Date Type Department Care Team Description 01/05/2025 Results Follow-Up [facility] Cardiology [address] [place] [address] [place] [address] [place] [address] Marysol Lucero MD ECG 12 lead 01/03/2025 3:25 PM PHARMACIST PER DIEM Lab [facility] [address] [place] [phone] Essential hypertension; Aortic atherosclerosis 01/03/2025 2:30 PM PHARMACIST PER DIEM Office Visit [facility] Cardiology [address] [place] [address] [place] [address] [place] [address] Marysol Lucero MD Chest pain, unspecified type (Primary Dx); Paroxysmal atrial fibrillation (HCC); Essential hypertension; Chronic anticoagulation; PVC (premature ventricular contraction); Aortic atherosclerosis 01/03/2025 Telephone [facility] Cardiology [address] [place] [address] [place] [address] [place] [address] Marysol Lucero MD 01/03/[address] [facility] Medicine Scheduling [address] [place] [address] Levy España IM DOC 01/02/2025 2:00 PM PHARMACIST PER DIEM Office Visit [facility] Dermatology [facility] [address] [place] [phone] Aureliano Haley MD Basal cell carcinoma (BCC) of armaan of right ear (Primary Dx) 12/13/2024 Telephone [facility] Cardiology [facility] 8th [place] [address] [place] [address] Matilde Maradiaga 12/05/2024 10:45 AM CDT Procedure visit [facility] Dermatology [address] [place] [address] [address] [place] [phone] Aureliano Haley MD Basal cell carcinoma of skin of ear, right (Primary Dx) 11/22/2024 Results Follow-Up [facility] Dermatology [address] [place] [address] [address] [place] [phone] Ophelia Bustillo MD PhD Surgical pathology 11/18/2024 Orders Only [facility] Pathology Outreach [address] [place] [address] Ophelia Bustillo MD PhD Neoplasm of unspecified behavior of bone, soft tissue, and skin 11/17/2024 1:15 PM CDT Office Visit [facility] Dermatology [address] [place] [address] [address] [place] [phone] Ophelia Bustillo MD PhD Seborrheic keratosis (Primary Dx); Lentigines; Purpura; Epidermal cyst; Skin ulcer, limited to breakdown of skin (HCC); Actinic keratosis; Neoplasm of unspecified behavior of bone, soft tissue, and skin; History of nonmelanoma skin cancer; History of radiation therapy 11/03/2024 12:00 PM CDT Office Visit [facility] Surgery [address] [place] [address] 6th [place] [address] [place] [phone] Neva Cox MD Right foot drop (Primary Dx) 10/19/2024 Telephone [facility] Surgery [address] [place] [address] 6th [place] [address] [place] [id number] Lea De Jesus PT [facility] ACCEPTED from [...] Atrial fibrillation (HCC) Dr. Chu - in [place] last saw Feb 2019 TIA (transient ischemic attack) 2000 Skin cancer Family History Medical History Relation Name Comments Heart attack Father Myocardial Infa rction; Cause of : Myocardial Infarction Heart disease Father's Brother Coronary artery disease Mother s/p CABG Kidney failure Mother pacemaker Mother Relation Name Status Comments Father (Age 70) Father's Brother Mother Social History Tobacco Use Types Packs/Day [...] on file Legal Sex Male 3:55 PM PHARMACIST PER DIEM Gender Identity Not on file Sexual Orientation Not on file Last Filed Vital Signs Vital Sign Reading Time Taken Comments Blood Pressure 148/90 01/03/2025 2:38 PM PHARMACIST PER DIEM Pulse 65 01/03/2025 2:38 PM PHARMACIST PER DIEM Temperature 37.4 C (99.3 F) 08/22/2020 10:09 AM CDT Respiratory Rate 18 04/03/2022 12:56 PM PHARMACIST PER DIEM Oxygen Saturation 96% 01/03/2025 2:38 PM PHARMACIST PER DIEM Inhaled Oxygen Concentration - - Weight 110.7 kg (244 lb) 01/03/2025 2:38 PM PHARMACIST PER DIEM Height 180.3 cm (5' 11) 01/03/2025 2:38 PM PHARMACIST PER DIEM Body Mass Index 34.03 01/03/2025 2:38 PM PHARMACIST PER DIEM Plan of Treatment Health Maintenance Due Date [...] Procedure Name Priority Date/Time Associated Diagnosis Comments APOLIPOPROTEIN B Routine 01/03/2025 3:23 PM PHARMACIST PER DIEM Essential hypertension LIPOPROTEIN A (LPA) Routine 01/03/2025 3 :23 PM PHARMACIST PER DIEM Essential hypertension PRO B-TYPE NATRIURETIC PEPTIDE Routine 01/03/2025 3:23 PM PHARMACIST PER DIEM Essential hypertension LIPID PANEL Routine 01/03/2025 3:23 PM PHARMACIST PER DIEM Essential hypertension Aortic atherosclerosis ECG 12-LEAD Routine 01/03/2025 2:42 PM PHARMACIST PER DIEM Paroxysmal atrial fibrillation (HCC) SURGICAL PATHOLOGY Routine 11/17/2024 12 :00 AM CDT Neoplasm of unspecified behavior of bone, soft tissue, and skin from Last 3 Months Results * Pro B-type natriuretic peptide (01/03/2025 3:23 PM PHARMACIST PER DIEM) NT-proBNP 219 <=300 pg/mL Comment: Interpretive Comments: A. Dyspnea in Acute Care Setting All Ages: < 300 pg/ml, acute heart failure unlikely. < 50 yrs: 300 - 450 pg/ml, further investigation warranted. > 450 pg/ml, acute heart failure likely. 50 - 74 yrs: 300 - 900 pg/ml, further investigation warranted. > 900 pg/ml, acute heart failure likely . > or = 75 yrs: 450 - 1800 pg/ml, further investigation warranted. > 1800 pg/ml, acute heart failure likely. B. Non-acute Setting < 75 yrs < 125 pg/ml, rules out heart failure. > or = 125 pg/ml, further investigation warranted. > or = 75 yrs < 450 pg/ml, rules out heart failure. > or = 450 pg/ml, further investigation warranted. - Knowledge of each individual patient's NT-proBNP range may be more useful than using similar cut-points for every patient. Please note that marked elevations in NT-proBNP levels may be observed in state other than Left Ventricular Congestive Failure, including: acute coronary syndromes, right heart strain/failure (including pulmonary embolism and cor pulmonale), critical illness, renal failure, as well as advanced age. - References: 1. Grace SANCHEZ et.al. Eur Heart J. 2006:27:330-337. 2. Kalyani RW, Lake AM. J. AM Jonny Cardiol: Cardiovasc Imag. 2009;2: 216- 225. Interpretive Data Last Revised Date: 2017. Blood 01/03/2025 3:23 PM PHARMACIST PER DIEM 01/03/2025 3:55 PM PHARMACIST PER DIEM us Marysol Lucero MD LAB BLOOD ORDERABLES Final Result [facility] Department of Laboratories [place], [place] [id number] * Apolipoprotein B, serum (01/03/2025 3:23 PM PHARMACIST PER DIEM) Pathologist [facility] Apolipoprotein B 79 mg/dL [place] ref Lab Comment: REFERENCE VALUE Desirable: <90 Above Desirable: 90-99 Borderline high: 100-119 High: 120-139 Very high: > or = 140 Test Performed by: [address] [address] Animal Assistant: Yoli Valdes Ph.D.; CLIA# [id number] Blood 01/03/2025 3:23 PM PHARMACIST PER DIEM 01/03/2025 6:28 PM PHARMACIST PER DIEM us Marysol Lucero MD LAB BLOOD ORDERABLES Final Result [facility] Department [place] [address] [place] ref [facility] * Lipoprotein a (LPa) (01/03/2025 3:23 PM PHARMACIST PER DIEM) Lipoprotein A 7 <75 nmol/L [facility] ref Lab Comment: ADDITIONAL INFORMATION Please notice that Lp(a) values are reported in molar units (nmol/L). These units are recommended by professional society guidelines and expert opinion statements. Measured results and risk thresholds are higher than those generated using mass units (mg/dL). Cardiovascular risk increases starting at 75 nmol/L. Lp(a) >=125 nmol/L is considered a risk enhancing factor by the [place] [employer]. This test has been modified from the tub rider's instructions. Its performance characteristics were determined by [facility] in a manner consistent with CLIA requirements. This test has not been cleared or approved by the U.S. Food and Drug Administration. Test Performed by: [address] [address] Animal Assistant: Yoli Valdes Ph.D.; CLIA# [id number] Blood 01/03/2025 3:23 PM PHARMACIST PER DIEM 01/03/2025 4:23 PM PHARMACIST PER DIEM us Marysol Lucero MD LAB BLOOD ORDERABLES Final Result [facility] Department [place] [address] [place] ref [facility] * (ABNORMAL) Lipid panel (01/03/2025 3:23 PM PHARMACIST PER DIEM) Cholesterol 169 30 - 199 mg/dL Comment: Interpretive Data Ages < or = 19 years Acceptable: <170 mg/dL Borderline high: 170-199 mg/dL High: >or= 200 mg/dL Ages > or = 20 years Desirable: <200 mg/dL Borderline high: 200-239 mg/dL High: >or= 240 mg/dL Literature References: 1. Expert Panel on Integrated Guidelines for Cardiovascular Health and Risk Reduction in Children and Adolescents. Pediatrics 2011;128:S213 2. NCEP Expert Panel. Circulation 2004;110:227 Current Interpretive Data was last revised on 2017. Triglycerides 270(H) <=149 mg/dL [facility] Comment: Interpretive Data Ages < or = 9 years Acceptable: <75 mg/dL Borderline high: 75-99 mg/dL High: >or= 100 mg/dL Ages 10 to 20 years Acceptable: <90 mg/dL Borderline high: 90-129 mg/dL High: >or= 130 mg/dL Ages > or = 20 years Desirable: <150 mg/dL Borderline high: 150-199 mg/dL High: 200-499 mg/dL Very high: >or= 499 mg/dL Literature References: 1. Expert Panel on Integrated Guidelines for Cardiovascular Health and Risk Reduction in Children and Adolescents. Pediatrics 2011;128:S213 2. NCEP Expert Panel. Circulation 2004;110:227 Current Interpretive Data was last revised on 2017. HDL 41 >=40 mg/dL [facility] Comment: Interpretive Data Ages < or = 19 years Acceptable: >45 mg/dL Borderline low: 40-45 mg/dL Low: <40 mg/dL Ages > or = 20 years Desirable: >or= 60 mg/dL Low: <40 mg/dL Literature References: 1. Expert Panel on Integrated Guidelines for Cardiovascular Health and Risk Reduction in Children and Adolescents. Pediatrics 2011;128:S213 2. NCEP Expert Panel. Circulation 2004;110:227 Current Interpretive Data was last revised on 2017. LDL, calculated 83 <=129 mg/dL [facility] Comment: Interpretive Data Ages < or = 19 years Acceptable: <110 mg/dL Borderline high: 110-129 mg/dL High: >or= 130 mg/dL Ages > or = 20 years Optimal: <100 mg/dL Near optimal: 100-129 mg/dL Borderline high: 130-159 mg/dL High: >160 mg/dL Calculated using the [place] LDL-C estimating equation. This equation was implemented on 2023. Prior to this date LDL-C was estimated using the Friedewald equation. Literature References: 1. Expert Panel on Integrated Guidelines for Cardiovascular Health and Risk Reduction in Children and Adolescents. Pediatrics 2011;128:S213 2. NCEP Expert Panel. Circulation 2004;110:227 3. Danish Peng et al. ASHLEY Cardiol. 2020 June 23;5(5):540-548. doi: 10.1001/jamacardio.2020.0013 Current Interpretive Data was last revised on 2023. Non-HDL Cholesterol 128 mg/dL [facility] Comment: Interpretive Data Ages < or = 19 years Acceptable: <120 mg/dL Borderline high: 120-144 mg/dL High: >145 mg/dL Ages > or = 20 years When triglycerides are >200 mg/dL, Non-HDL cholesterol is a secondary target of therapy with treatment goals that are 30 mg/dL greater than the LDL cholesterol target. Literature References: 1. Expert Panel on Integrated Guidelines for Cardiovascular Health and Risk Reduction in Children and Adolescents. Pediatrics 2011;128:S213 2. NCEP Expert Panel. Circulation 2004;110:227 Current Interpretive Data was last revised on 2017. Chol/HDL ratio 4 [facility] Blood 01/03/2025 3:23 PM PHARMACIST PER DIEM 01/03/2025 3:55 PM PHARMACIST PER DIEM us Marysol Lucero MD LAB BLOOD ORDERABLES Final Result [facility] Department [place] [address] * ECG 12 lead (01/03/2025 2:42 PM PHARMACIST PER DIEM) us Marysol Lucero MD ECG ORDERABLES Edited Res ult - Final * Surgical pathology (11/17/2024 12:00 AM CDT) Tissue (Skin, shave biopsy) 11/17/2024 11/18/2024 8:58 AM CDT Narrative [facility] - 11/21/2024 2:38 PM CDT EPIC results best viewed via link to PDF [facility] Dermatopathology [place] [id number] [facility] [address], [place] [address] [email or web address] Note to Patients: This report may [...] Submitting Physician Information: Ophelia Bustillo M.D. Dermatology [facility] [address] [facility], [address] [place] [address], DERMATOPATHOLOGY REPORT RESULTS DIAGNOSIS: SKIN, RIGHT CONCHAL, [...] jason/mat ICD-9 A; ZSD.176 Clerical Data A; 14750 The characteristics of special, immunohistochemical, and immunofluorescence stains and in-situ hybridization tests performed by the [facility] were deemed acceptable in ongoing senior quality assurance specialist measures and in compliance with regulations drawn from the Clinical Laboratory Improvement Act us7403 (CLIA '88). Control reactions for all stains performed were deemed adequate and appropriate by a pathologist prior to evaluation of patient tissue. Some diagnoses were rendered with the assistance of laboratory-developed tests utilizing analyte-specific reagents; the performance characteristic of these tests were determined by [facility] and are not cleared or approved by the [place] Food an Drug administration. Laboratory developed test may only be performed in a facility that is certified by the [facility] as a high-complexity laboratory under CLIA '88. These tests are used for clinical purposes and are not investigational. Ophelia Bustillo MD PhD LAB PATHOLOGY OR DERABLES Final Result [facility] [address] [place] [id number] from Last 3 Months Insurance [facility] MDCR HMO REF [facility] MEDICARE ADVANTAGE Care Teams Volcanologist Relationship Specialty Start Date End Date Alexander Donald MD [address] [place], [place] [id number] PCP - General 03/20/16 Edmond Baez MD [address] [place] [address] Radiation Oncologist Radiation Oncology 06/12/21
--- OUTSIDE RECORDS SUMMARY | 2025-01-06 09:17 | XMS_ITS | Encounter Summary ---
Author Organization [facility] Address [address] [place] [address] Phone Care Team Providers Care Plating Foreman Name Role Phone Alexander Donald MD Primary Care Provider [phone] Edmond Baez MD Unavailable [phone] Encounter Details Date Type Department Care Team (Late st Contact Info) Description 11/22/2024 Results Follow-Up [facility] Medicine Dermatology [address] [facility] [address] [place] [address] Ophelia Bustillo MD PhD [address] [place], [place] [id number] Surgical pathology Social History Tobacco Use Types [...] on file 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
--- OUTSIDE RECORDS SUMMARY | 2025-01-06 09:17 | XMS_ITS | Encounter Summary ---
Author Organization [facility] Address [address] [facility] [address] [place] [address] Care Team Providers Care Data Entry Representative Name Role Phone Alexander Donald MD Primary Care Provider [phone] Louis Mo MD Unavailable [phone] Edmond Baez MD Unavailable [phone] Encounter Details Date Type Department Care Team (Late st Contact Info) Description 03/20/2016 Orders Only [facility] ProviderSruthi MD [address] [place], [place] [id number] Social History Tobacco Use Types Packs/Day Years Used Date Smoking Tobacco: Never Alcohol Use Standard Drinks/Week Comments Yes 0 (1 standard drink = 0.6 oz pur e alcohol) Sex and Gender Information Value Date Recorded Sex Assigned at Not on file 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 [address] [place] [address] Radiation Oncologist Radiation Oncology 08/29/19 Edmond Baez MD [address] [facility] [address] [place] [address] Radiation Oncologist Radiation Oncology 06/12/21 documented as of this encounter
--- OUTSIDE RECORDS SUMMARY | 2025-01-06 09:17 | XMS_ITS | Encounter Summary ---
Author Organization [facility] Address [address] [place] [address] Phone Care Team Providers Care Digital Production Operator Name Role Phone Alexander Donald MD Primary Care Provider [phone] Edmond Baez MD Unavailable [phone] Encounter Details Date Type Department Care Team (Late st Contact Info) Description 12/13/2024 Telephone [facility] Medicine Cardiology [address] 8[address] [place] [address] [place] [address] Matilde Maradiaga Social History Tobacco Use Types Packs/Day Years [...] on file 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 * Telephone Encounter - Matilde Maradiaga - 12/13/2024 2:35 PM CDT CARDIOLOGY NEW PATIENT RECORDS REVIEW Insurance Information [employer] Insurance Provider: [facility] Group number: Diagnosis and Referring Provider Information (Check for Referrals in Epic) Cardiac Diagnosis: Afib Referring Provider: SELF Referring Provider Specialty: Referring Provider Phone: Current/Former Exhibit Specialist (if different from referring provider): Dr. Perez at [facility] Current/Former Exhibit Specialist Phone: Questions to Determine Placement for Specialty Clinics Cardiology-Oncology (For new amyloidosis referrals, complete RRS and send to [facility] PT POOL and send an encounter to the [facility] to make them aware.) Are you actively undergoing cancer treatments including radiation, chemotherapy, or immunotherapy or is this planned in the future?: no When: Where: Congenital Is this a heart condition that has existed since : no Maternal- Cardiology (Females Only) Are you or had a baby in the past year: no Sports Medicine Do you regularly exercise or play sports: no Are the symptoms or concerns associated with acviity: no Hypertension (If yes, must be referred by MD) Are you a hemodialysis or peritoneal dialysis patient: no Referring provider: Cardiology History Questions Have you been hospitalized for cardiac issues: yes When: February 2018 Where: [facility] in [place], [place] Have you had an echo: no When: Where: Have you had a stress test: no When: Where: Have you had an EKG: no When: Where: Have you had a holter monitor: no When: Where: Have you had cardiac imaging(CT or MRI): no Testing/imaging: When: Where: Have you had any procedures (cath, CABG, cardioversion, or ablation): no When: Where: Have you had a sleep study done: yes When: Over 5 years ago Where: Do you have an implantable cardiac device: no Type: Manager Discovery: When: Where: Appointment Details Date: 01/03 Time: 2:30 pm Location: [facility] Provider: Dr. Lucero documented in this encounter Plan of Treatment Not on file documented as of this encounter Visit Diagnoses Not on filedocumented in this encounter Care Teams Digital Production Operator Relationship Specialty Start Date End Date Alexander Donald MD [address] [place] [address] PCP - General 03/20/16 Edmond Baez MD [address] [facility] [address] [place] [address] Radiation Oncologist Radiation Oncology 06/12/21 documented as of this encounter
[2025-01-06 10:12] LABS: CRP 1.5 mg/dL (<1.0); Uric Acid 7.9 mg/dL (3.5-8.5)
== END 2025-01-06 08:56 | disposition home or self-care (01) ==
PROVIDERS: PCP Internal Medicine; Visit Provider Internal Medicine
DX: M10.9 Gout, unspecified (principal); M25.50 Pain in unspecified joint
CPT/HCPCS: 36415; 84550; 86140